=== PATIENT | female | born 1985 | race Caucasian/White ===

== ENCOUNTER 2016-07-22 20:02 | Emergency (ER) | payer OTHER, SELFPAY ==
[2016-07-22 20:16] VITALS: BP 115/64; PULSE 78; O2SAT 97
[2016-07-22] MEDS ORDERED: Rocephin 1000 MG INJ IM ONE (20:20)
--- NOTE | 2016-07-22 20:20 | ERPHSYRPT ---
- History of Present Illness Time Seen by Provider: 07/22/16 20:07 Source: patient Exam Limitations: no limitations Physician History: PT HAS HAD CHRONIC RIGHT SHOULDER PAIN FOR THE PAST 4 YEARS AND RECEIVED AN INJECTION IN THE MUSCLES OF HER RIGHT SHOULDER YESTERDAY BY A SPORTS MEDICINE DR AT [facility] AFTER WHICH SHE HAD SOME SHORTNESS OF AIR. TODAY PT HAS HAD A SUBJECTIVE FEVER. PT DENIES NAUSEA, VOMITING, ABDOMINAL PAIN. Allergies/Adverse Reactions: codeine Allergy (Intermediate, Verified 07/22/16 20:06) Rash erythromycin base Allergy (Intermediate, Verified 07/22/16 20:06) Rash shellfish derived Allergy (Intermediate, Verified 07/22/16 20:06) Rash acetaminophen [From Vicodin] Adverse Reaction (Mild, Verified 07/22/16 20:06) ITCH hydrocodone bitartrate [From Vicodin] Adverse Reaction (Mild, Verified 07/22/16 20:06) ITCH Home Medications: Alprazolam 1 mg [Xanax 1 mg] 2 mg PO HS 09/16/15 [History] Diltiazem HCl 30 mg [Cardizem 30 MG] 1 tab PO BID 05/25/16 [History] Fluoxetine HCl [Prozac] 1 cap PO DAILY 05/25/16 [History] Hx Tetanus, Diphtheria Vaccination/Date Given: No Hx Influenza Vaccination/Date Given: No Hx Pneumococcal Vaccination/Date Given: No - Review of Systems Constitutional: Fever Respiratory: Dyspnea Abdominal/Gastrointestinal: No Abdominal Pain, No Nausea, No Vomiting Musculoskeletal: Joint Pain (RIGHT SHOULDER PAIN) All Other Systems: Reviewed and Negative - Past Medical History Pertinent Past Medical History: No Neurological History: No Pertinent History ENT History: No Pertinent History Cardiac History: Other Respiratory History: No Pertinent History Endocrine Medical History: No Pertinent History Musculoskeletal History: No Pertinent History GI Medical History: GERD, Ulcer History: No Pertinent History Psycho-Social History: Anxiety Female Reproductive Disorders: Abnormal Uterine Bleeding Other Medical History: hypoglycemia - Past Surgical History Past Surgical History: Yes Neuro Surgical History: No Pertinent History Cardiac: No Pertinent History Respiratory: No Pertinent History Gastrointestinal: No Pertinent History, Cholecystectomy Genitourinary: No Pertinent History Musculoskeletal: Orthopedic Surgery Female Surgical History: Dilation & Curettage, Tubal Ligation Other Surgical History: left knee meniscus repair,left wrist cyst,Lap emily, colonoscopy and EGD - Social History Smoking Status: Current every day smoker How long have you smoked: 16 Exposure to second hand smoke: Yes Drug Use: none Patient Lives Alone: No - Physical Exam General Appearance: alert, anxiety Eye Exam: PERRL/EOMI, eyes nml inspection Ears, Nose, Throat Exam: TMs normal, moist mucous membranes, pharyngeal erythema Neck Exam: normal inspection Respiratory Exam: normal breath sounds, lungs clear Cardiovascular Exam: normal heart sounds Gastrointestinal/Abdomen Exam: soft, normal bowel sounds Back Exam: normal range of motion Extremity Exam: normal inspection, normal range of motion, No pedal edema Neurologic Exam: alert, cooperative Skin Exam: warm, dry - Course Nursing assessment & vital signs reviewed: Yes - Departure Time of Disposition: 20:20 Departure Disposition: Home Clinical Impression: PHARYNGITIS, CHRONIC RIGHT SHOULDER PAIN Condition: Fair Critical Care Time: No Instructions: Shoulder Pain Additional Instructions: FOLLOW UP WITH PRIVATE DOCTOR TOMORROW. Prescriptions: Naproxen [Naprosyn] 500 mg PO Q12H PRN PRN #20 tablet PRN Reason: Pain Cephalexin Monohydrate [Keflex] 500 mg PO TID #30 capsule
[2016-07-22] MEDS ORDERED: Rocephin 1000 MG INJ ONE (20:23)
[2016-07-22] MEDS ORDERED: XYLOCAINE 1% HCL 20 ML MDV ONE (20:23)
== END 2016-07-22 20:47 | disposition home or self-care (01) ==
LOC: ED 20:02
DX: J20.9 Acute bronchitis, unspecified (principal); M25.511 Pain in right shoulder; G89.29 Other chronic pain
CPT/HCPCS: 96372; 99282; J0696

== ENCOUNTER 2017-05-22 10:30 | Emergency (ER) | payer OTHER, SELFPAY ==
[2017-05-22 11:13] VITALS: O2SAT 98
--- NOTE | 2017-05-22 11:53 | ERPHSYRPT ---
- History of Present Illness Time Seen by Provider: 05/22/17 11:05 Source: patient Exam Limitations: clinical condition Patient Subjective Stated Complaint: chest congestion intermittently for three months. states has taken antibiotics and otc meds without relief. has had increase congestion for one week now. Triage Nursing Assessment: ambulated to room without difficulty. skin w/d, color normal, resp nonlabored. breath sounds clear. Physician History: PATIENT WITH HISTORY OF INTERMITTENT COUGH FOR 3 MONTHS, PRODUCTIVE, PAIN UPON INSPIRATION. DENIES FEVER, DYSPNEA OR CHILLS Timing/Duration: week(s) Cough Quality/Degree: moderate, productive cough Possible Cause: occasional episodes Modifying Factors: Improves With: nothing Associated Symptoms: chest pain/soreness, cough International travel in last 2 weeks: No Allergies/Adverse Reactions: codeine Allergy (Intermediate, Verified 05/22/17 11:02) Rash erythromycin base Allergy (Intermediate, Verified 05/22/17 11:02) Rash shellfish derived Allergy (Intermediate, Verified 05/22/17 11:02) Rash acetaminophen [From Vicodin] Adverse Reaction (Mild, Verified 05/22/17 11:02) ITCH hydrocodone bitartrate [From Vicodin] Adverse Reaction (Mild, Verified 05/22/17 11:02) ITCH Home Medications: Alprazolam 1 mg [Xanax 1 mg] 1 mg PO BID 09/16/15 [History] Diltiazem HCl 30 mg [Cardizem 30 MG] 1 tab PO BID 05/25/16 [History] Duloxetine HCl 30 mg [Cymbalta 30 MG Capsule] 30 mg PO DAILY 05/22/17 [ History] Lubiprostone [Amitiza] 24 mcg PO DAILY 05/22/17 [History] Hx Tetanus, Diphtheria Vaccination/Date Given: No Hx Influenza Vaccination/Date Given: No Hx Pneumococcal Vaccination/Date Given: No - Review of Systems Constitutional: No Fever, No Chills Eyes: No Symptoms Ears, Nose, & Throat: No Symptoms Respiratory: Cough, No Dyspnea Cardiac: No Symptoms, No Chest Pain, No Edema, No Syncope Abdominal/Gastrointestinal: No Symptoms, No Abdominal Pain, No Nausea, No Vomiting, No Diarrhea Genitourinary Symptoms: No Symptoms, No Dysuria Musculoskeletal: No Symptoms, No Back Pain, No Neck Pain Skin: No Rash Neurological: No Dizziness, No Focal Weakness, No Sensory Changes Psychological: No Symptoms Endocrine: No Symptoms All Other Systems: Reviewed and Negative - Past Medical History Pertinent Past Medical History: Yes Neurological History: No Pertinent History ENT History: No Pertinent History Cardiac History: Arrhythmia, Other Respiratory History: No Pertinent History Endocrine Medical History: No Pertinent History Musculoskeletal History: No Pertinent History GI Medical History: GERD, Ulcer History: No Pertinent History Psycho-Social History: Anxiety Female Reproductive Disorders: Abnormal Uterine Bleeding Other Medical History: hypoglycemia, esophagus spasm - Past Surgical History Past Surgical History: Yes Neuro Surgical History: No Pertinent History Cardiac: No Pertinent History Respiratory: No Pertinent History Gastrointestinal: Cholecystectomy Genitourinary: No Pertinent History Musculoskeletal: Orthopedic Surgery Female Surgical History: Dilation & Curettage, Tubal Ligation Other Surgical History: left knee meniscus repair,left wrist cyst,Lap emily, colonoscopy and EGD - Social History Smoking Status: Current every day smoker How long have you smoked: 18 Exposure to second hand smoke: Yes Drug Use: none Patient Lives Alone: No - Female History Hx Last Menstrual Period: 05/04/17 - Nursing Vital Signs Nursing Vital Signs: Initial Vital Signs Temperature 98.1 F 05/22/17 10:55 Pulse Rate 87 05/22/17 10:55 Respiratory Rate 16 05/22/17 10:55 Blood Pressure 121/73 05/22/17 10:55 O2 Sat by Pulse Oximetry 98 05/22/17 10:55 Pain Scale Pain Intensity 4 - Physical Exam General Appearance: no apparent distress, alert Eye Exam: PERRL/EOMI, eyes nml inspection Ears, Nose, Throat Exam: normal ENT inspection, TMs normal, pharynx normal, moist mucous membranes Neck Exam: normal inspection, non-tender, supple, full range of motion Respiratory Exam: normal breath sounds, lungs clear, No respiratory distress Cardiovascular Exam: regular rate/rhythm, normal heart sounds Gastrointestinal/Abdomen Exam: soft, No tenderness Back Exam: normal inspection, No CVA tenderness, No vertebral tenderness Extremity Exam: normal inspection, normal range of motion Neurologic Exam: alert, 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, cooperative, normal mood/affect, sensation nml, No motor deficits Skin Exam: normal color, warm, dry, No rash Lymphatic Exam: No adenopathy SpO2: 98 Oxygen Delivery: Room Air - Radiology Exams Chest X-ray Interpretation: Interpreted by me (HYPERINFLATION, NO INFILTRATES), Negative Ordered Tests: Active Orders 24 hr Category Date Time Status CHEST 2 VIEWS (PA AND LAT) Stat Exams 05/22/17 11:26 Taken CULTURE, THROAT Stat Lab 05/22/17 11:26 Received STREP SCREEN-BETA A Stat Lab 05/22/17 11:26 Completed Lab/Rad Data: Laboratory Results 05/22/17 Range/Units 11:26 Streptococcus Screen NEGATIVE (Negative) - Progress Counseled pt/family regarding: diagnosis, need for follow-up, rad results - Departure Time of Disposition: 12:30 Departure Disposition: Home Clinical Impression: ACUTE BRONCHITIS , ACUTE PHARYNGITIS Condition: Stable Critical Care Time: No Referrals: PAUL GIBBONS [Primary Care Provider] - Additional Instructions: MOTRIN EVERY 6 HOURS NEEDED FOR FEVER OR PAIN. ANTIBIOTIC CEFTIN 250MG TWICE DAILY FOR 10 DAYS. TAKE OVER THE COUNTER COUGH SYRUP FOR COUGHING. CONSULT YOUR PRIMARY CARE PHYSICIAN IN 1 WEEK FOR FOLLOWUP. Prescriptions: Cefuroxime Axetil [Cefuroxime] 250 mg PO BID #20 tablet
[2017-05-22 13:14] VITALS: BP 93/53; PULSE 58
--- NOTE | 2017-05-22 17:14 | XRAY ---
Indication: Cough. Comparison: March 05, 2016. PA/lateral chest again clear. Heart is not enlarged. Bony thorax intact. No new/acute findings.
== END 2017-05-22 13:15 | disposition home or self-care (01) ==
LOC: ED 10:30
DX: J20.9 Acute bronchitis, unspecified (principal); J02.9 Acute pharyngitis, unspecified
CPT/HCPCS: 71020; 87070; 87430; 99283; 99284

== ENCOUNTER 2017-08-21 12:04 | Emergency (ER) | payer OTHER ==
--- NOTE | 2017-08-21 13:03 | ERPHSYRPT ---
- History of Present Illness Time Seen by Provider: 08/21/17 12:58 Source: patient Exam Limitations: no limitations Patient Subjective Stated Complaint: Pt states "since tuesday I have not felt well, I have been coughing and my throat hurts." Triage Nursing Assessment: Pt alert and oriented X 3, skin pwd. pt ambulates without difficutly, able to speak in clear full sentences. Physician History: The patient is a 32-year-old female complaining of a stuffy nose and chest congestion with cough for 2 days. The patient states her fever has been 100. She feels run down. She had influenza earlier this year. Her past medical history is significant for anxiety, depression, and tonsilectomy. Timing/Duration: day(s) (2) Cough Quality/Degree: dry cough Possible Cause: occasional episodes Modifying Factors: Improves With: coughing Associated Symptoms: fever, nasal drainage, sore throat Allergies/Adverse Reactions: codeine Allergy (Intermediate, Verified 05/22/17 11:02) Rash erythromycin base Allergy (Intermediate, Verified 05/22/17 11:02) Rash shellfish derived Allergy (Intermediate, Verified 05/22/17 11:02) Rash acetaminophen [From Vicodin] Adverse Reaction (Mild, Verified 05/22/17 11:02) ITCH hydrocodone bitartrate [From Vicodin] Adverse Reaction (Mild, Verified 05/22/17 11:02) ITCH Home Medications: Alprazolam 1 mg [Xanax 1 mg] 1 mg PO BID 09/16/15 [History] Diltiazem HCl 30 mg [Cardizem 30 MG] 1 tab PO BID 05/25/16 [History] Duloxetine HCl 30 mg [Cymbalta 30 MG Capsule] 30 mg PO DAILY 05/22/17 [ History] Lubiprostone [Amitiza] 24 mcg PO DAILY 05/22/17 [History] Hx Tetanus, Diphtheria Vaccination/Date Given: No Hx Influenza Vaccination/Date Given: No Hx Pneumococcal Vaccination/Date Given: No Immunizations Up to Date: Yes - Review of Systems Constitutional: Fever, Fatigue Eyes: No Symptoms Ears, Nose, & Throat: Nose Discharge, Throat Pain Respiratory: Cough Cardiac: No Chest Pain, No Edema, No Syncope Abdominal/Gastrointestinal: No Abdominal Pain, No Nausea, No Vomiting, No Diarrhea Genitourinary Symptoms: No Dysuria Musculoskeletal: No Back Pain, No Neck Pain Skin: No Rash Neurological: No Dizziness, No Focal Weakness, No Sensory Changes Psychological: No Symptoms Endocrine: No Symptoms Hematologic/Lymphatic: No Symptoms Immunological/Allergic: No Symptoms All Other Systems: Reviewed and Negative - Past Medical History Pertinent Past Medical History: Yes Neurological History: No Pertinent History ENT History: No Pertinent History Cardiac History: Arrhythmia, Other Respiratory History: No Pertinent History Endocrine Medical History: No Pertinent History Musculoskeletal History: No Pertinent History GI Medical History: GERD, Ulcer History: No Pertinent History Psycho-Social History: Anxiety Female Reproductive Disorders: Abnormal Uterine Bleeding Other Medical History: hypoglycemia, esophagus spasm - Past Surgical History Past Surgical History: Yes Neuro Surgical History: No Pertinent History Cardiac: No Pertinent History Respiratory: No Pertinent History Gastrointestinal: Cholecystectomy Genitourinary: No Pertinent History Musculoskeletal: Orthopedic Surgery Female Surgical History: Dilation & Curettage, Tubal Ligation Other Surgical History: left knee meniscus repair,left wrist cyst,Lap emily, colonoscopy and EGD - Social History Smoking Status: Current every day smoker How long have you smoked: 18 years Exposure to second hand smoke: Yes Drug Use: none Patient Lives Alone: No - Female History Hx Last Menstrual Period: 08/13/2017 Hx Now: No - Nursing Vital Signs Nursing Vital Signs: Initial Vital Signs Temperature 97.8 F 08/21/17 12:11 Pulse Rate 96 H 08/21/17 12:11 Respiratory Rate 18 08/21/17 12:11 Blood Pressure 131/90 08/21/17 12:11 O2 Sat by Pulse Oximetry 99 08/21/17 12:11 Pain Scale Pain Intensity 5 - Physical Exam General Appearance: no apparent distress, alert Eye Exam: PERRL/EOMI, eyes nml inspection Ears, Nose, Throat Exam: normal ENT inspection, TMs normal, pharynx normal, moist mucous membranes, No pharyngeal erythema Neck Exam: normal inspection, non-tender, supple, full range of motion Respiratory Exam: normal breath sounds, lungs clear, No respiratory distress Cardiovascular Exam: regular rate/rhythm, normal heart sounds Gastrointestinal/Abdomen Exam: soft, No tenderness Pelvic Exam: not done Rectal Exam: not done Back Exam: normal inspection, No CVA tenderness, No vertebral tenderness Extremity Exam: normal inspection, normal range of motion Neurologic Exam: alert, 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, cooperative, normal mood/affect, sensation nml, No motor deficits Skin Exam: normal color, warm, dry, No rash Lymphatic Exam: No adenopathy SpO2 Interpretation: normal SpO2: 99 Oxygen Delivery: Room Air - Departure Time of Disposition: 13:02 Departure Disposition: Home Clinical Impression: Viral URI with cough Condition: Stable Critical Care Time: No Referrals: PAUL GIBBONS [Primary Care Provider] - Additional Instructions: You have a viral infection in your upper respiratory tract. Take Tessalon Perles 100 mg every 8 hours as needed for cough. Take Tylenol and ibuprofen as needed. Follow-up in 2-3 days if no improvement. Prescriptions: Benzonatate [Tessalon Perle] 100 mg PO Q8H PRN PRN #12 capsule PRN Reason: Cough
[2017-08-21 13:13] VITALS: BP 115/73; PULSE 70; O2SAT 98
== END 2017-08-21 13:13 | disposition home or self-care (01) ==
LOC: ED 12:04
DX: J06.9 Acute upper respiratory infection, unspecified (principal); R05 Cough
CPT/HCPCS: 99282

== ENCOUNTER 2017-08-28 10:33 | Emergency (ER) | payer OTHER ==
--- NOTE | 2017-08-28 10:51 | ERPHSYRPT ---
- History of Present Illness Time Seen by Provider: 08/28/17 10:50 Source: patient, family Exam Limitations: no limitations Physician History: The patient is a 32-year-old female complaining of a cough for 9-10 days. I saw her 7 days ago for the same issue of cough for 2 days. At that time I gave her Diego Wong. She is still coughing and is now nauseated. She smokes and has some wheezing. She is not short of breath. Her past medical history is significant for depression, anxiety, and hypertension. Timing/Duration: day(s) (9), gradual onset, worse Cough Quality/Degree: dry cough Possible Cause: occasional episodes, smoke exposure Modifying Factors: Improves With: coughing Associated Symptoms: cough Allergies/Adverse Reactions: codeine Allergy (Intermediate, Verified 08/28/17 10:46) Rash erythromycin base Allergy (Intermediate, Verified 08/28/17 10:46) Rash shellfish derived Allergy (Intermediate, Verified 08/28/17 10:46) Rash acetaminophen [From Vicodin] Adverse Reaction (Mild, Verified 08/28/17 10:46) ITCH hydrocodone bitartrate [From Vicodin] Adverse Reaction (Mild, Verified 08/28/17 10:46) ITCH Home Medications: Alprazolam 1 mg [Xanax 1 mg] 1 mg PO BID 09/16/15 [History] Diltiazem HCl 30 mg [Cardizem 30 MG] 1 tab PO BID 05/25/16 [History] Duloxetine HCl 30 mg [Cymbalta 30 MG Capsule] 30 mg PO DAILY 05/22/17 [ History] Lubiprostone [Amitiza] 24 mcg PO DAILY 05/22/17 [History] Hx Tetanus, Diphtheria Vaccination/Date Given: No Hx Influenza Vaccination/Date Given: No Hx Pneumococcal Vaccination/Date Given: No - Review of Systems Constitutional: No Fever, No Chills Eyes: No Symptoms Ears, Nose, & Throat: No Symptoms Respiratory: Cough, Wheezing Cardiac: No Chest Pain, No Edema, No Syncope Abdominal/Gastrointestinal: Nausea Genitourinary Symptoms: No Dysuria Musculoskeletal: No Back Pain, No Neck Pain Skin: No Rash Neurological: No Dizziness, No Focal Weakness, No Sensory Changes Psychological: No Symptoms Endocrine: No Symptoms Hematologic/Lymphatic: No Symptoms Immunological/Allergic: No Symptoms All Other Systems: Reviewed and Negative - Past Medical History Pertinent Past Medical History: Yes Neurological History: No Pertinent History ENT History: No Pertinent History Cardiac History: Arrhythmia, Other Respiratory History: No Pertinent History Endocrine Medical History: No Pertinent History Musculoskeletal History: No Pertinent History GI Medical History: GERD, Ulcer History: No Pertinent History Psycho-Social History: Anxiety Female Reproductive Disorders: Abnormal Uterine Bleeding Other Medical History: hypoglycemia, esophagus spasm - Past Surgical History Past Surgical History: Yes Neuro Surgical History: No Pertinent History Cardiac: No Pertinent History Respiratory: No Pertinent History Gastrointestinal: Cholecystectomy Genitourinary: No Pertinent History Musculoskeletal: Orthopedic Surgery Female Surgical History: Dilation & Curettage, Tubal Ligation Other Surgical History: left knee meniscus repair,left wrist cyst,Lap emily, colonoscopy and EGD - Social History Smoking Status: Current every day smoker How long have you smoked: 18 years Exposure to second hand smoke: Yes Drug Use: none Patient Lives Alone: No - Nursing Vital Signs Nursing Vital Signs: Initial Vital Signs Temperature 98.1 F 08/28/17 10:39 Pulse Rate 96 H 08/28/17 10:39 Respiratory Rate 18 08/28/17 10:39 Blood Pressure 118/62 08/28/17 10:39 O2 Sat by Pulse Oximetry 100 08/28/17 10:39 Pain Scale Pain Intensity 5 - Physical Exam General Appearance: no apparent distress, alert Eye Exam: PERRL/EOMI, eyes nml inspection Ears, Nose, Throat Exam: normal ENT inspection, TMs normal, pharynx normal, moist mucous membranes Neck Exam: normal inspection, non-tender, supple, full range of motion Respiratory Exam: wheezing Cardiovascular Exam: regular rate/rhythm, normal heart sounds Gastrointestinal/Abdomen Exam: soft, No tenderness Pelvic Exam: not done Rectal Exam: not done Back Exam: normal inspection, No CVA tenderness, No vertebral tenderness Extremity Exam: normal inspection, normal range of motion Neurologic Exam: alert, 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, cooperative, normal mood/affect, sensation nml, No motor deficits Skin Exam: normal color, warm, dry, No rash Lymphatic Exam: adenopathy SpO2 Interpretation: normal - Progress Progress Note: 08/28/17 11:05 Pt declines CXR and agrees to antibiotic and steroids. Blood Culture(s) Obtained: No Antibiotics given: No Counseled pt/family regarding: diagnosis, need for follow-up - Departure Time of Disposition: 11:05 Departure Disposition: Home Clinical Impression: Bronchitis Condition: Stable Critical Care Time: No Referrals: PAUL GIBBONS [Primary Care Provider] - Additional Instructions: You have bronchitis. Take doxycycline 100 mg 2 times a day for 10 days. Take prednisone 60 mg daily for 5 days. Take Zofran 4 mg ODT every 6 hours as needed for nausea. Continue to take the Tessalon Perles as directed previously. Follow-up in 2-3 days if no improvement. Prescriptions: Ondansetron ODT 4 MG [Zofran Odt 4 mg] 1 tab PO Q6H PRN PRN #10 tab.rapdis PRN Reason: Nausea/Vomiting Doxycycline Hyclate 100 mg [Vibramycin 100 MG] 1 tab PO BID #20 tab Prednisone 20 mg [Deltasone 20 mg] 3 tab PO DAILY #15 tablet
[2017-08-28 11:21] VITALS: BP 112/65; PULSE 88; O2SAT 99
== END 2017-08-28 11:20 | disposition home or self-care (01) ==
LOC: ED 10:33
DX: J40 Bronchitis, not specified as acute or chronic (principal); F17.200 Nicotine dependence, unspecified, uncomplicated
CPT/HCPCS: 99281

== ENCOUNTER 2017-09-17 14:10 | Emergency (ER) | payer OTHER ==
[2017-09-17 14:26] VITALS: BP 124/76; PULSE 73; O2SAT 98
[2017-09-17] MEDS ORDERED: MOTRIN 600 MG PO ONE (14:33)
[2017-09-17] MEDS ORDERED: MOTRIN 600 MG ONE (14:39)
--- NOTE | 2017-09-17 14:59 | ERPHSYRPT ---
- History of Present Illness Time Seen by Provider: 09/17/17 14:28 Source: patient Patient Subjective Stated Complaint: left knee pain that is chronic. and then 3 days ago she rolled the leg and now has radiating pain down leg with tingling Triage Nursing Assessment: pt walked in, resp easy, skin w/d/p. no redenss or swelling noted, Physician History: CC: left knee pain Hx: 32 y/o patient of Dr Robert Marcos. She has hx of knee pains and problems. Prior surgery. Saw Dr Marcos earlier this week and is scheduled for MRI. She twisted her left knee again 3 days ago. Continued pain. No redness or warmth or swelling. States not . Occurred: days ago (3) Lower Extremities Pain: knee: left Allergies/Adverse Reactions: codeine Allergy (Intermediate, Verified 08/28/17 10:46) Rash erythromycin base Allergy (Intermediate, Verified 08/28/17 10:46) Rash shellfish derived Allergy (Intermediate, Verified 08/28/17 10:46) Rash acetaminophen [From Vicodin] Adverse Reaction (Mild, Verified 08/28/17 10:46) ITCH hydrocodone bitartrate [From Vicodin] Adverse Reaction (Mild, Verified 08/28/17 10:46) ITCH Home Medications: Alprazolam 1 mg [Xanax 1 mg] 1 mg PO BID 09/16/15 [History] Diltiazem HCl 30 mg [Cardizem 30 MG] 1 tab PO TID 05/25/16 [History] Duloxetine HCl 30 mg [Cymbalta 30 MG Capsule] 30 mg PO DAILY 05/22/17 [ History] Lubiprostone [Amitiza] 24 mcg PO DAILY 05/22/17 [History] Gabapentin [Gabapentin] 200 mg DAILY 09/17/17 [History] Hx Tetanus, Diphtheria Vaccination/Date Given: Yes Hx Influenza Vaccination/Date Given: No Hx Pneumococcal Vaccination/Date Given: No Immunizations Up to Date: Yes - Review of Systems Constitutional: No Symptoms Musculoskeletal: Joint Pain (left), No Back Pain, No Neck Pain Skin: No Rash Neurological: No Headache - Past Medical History Pertinent Past Medical History: Yes Neurological History: No Pertinent History ENT History: No Pertinent History Cardiac History: Arrhythmia, Other Respiratory History: No Pertinent History Endocrine Medical History: No Pertinent History Musculoskeletal History: No Pertinent History GI Medical History: GERD, Ulcer History: No Pertinent History Psycho-Social History: Anxiety Female Reproductive Disorders: Abnormal Uterine Bleeding Other Medical History: hypoglycemia, esophagus spasm - Past Surgical History Past Surgical History: Yes Neuro Surgical History: No Pertinent History Cardiac: No Pertinent History Respiratory: No Pertinent History Gastrointestinal: Cholecystectomy Genitourinary: No Pertinent History Musculoskeletal: Orthopedic Surgery Female Surgical History: Dilation & Curettage, Tubal Ligation Other Surgical History: left knee meniscus repair,left wrist cyst,Lap emily, colonoscopy and EGD - Social History Smoking Status: Current every day smoker How long have you smoked: 18 years Exposure to second hand smoke: Yes Drug Use: none Patient Lives Alone: No - Female History Hx Last Menstrual Period: 2 weeks ago Hx Now: No - Nursing Vital Signs Nursing Vital Signs: Initial Vital Signs Temperature 98.8 F 09/17/17 14:21 Pulse Rate 73 09/17/17 14:21 Respiratory Rate 16 09/17/17 14:21 Blood Pressure 124/76 09/17/17 14:21 O2 Sat by Pulse Oximetry 98 09/17/17 14:21 Pain Scale Pain Intensity 7 - Physical Exam General Appearance: alert Neck Exam: supple Cardiovascular/Respiratory Exam: regular rate/rhythm Neuro/Tendon Exam: normal sensation, normal motor functions Mental Status Exam: alert, 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, cooperative Skin Exam: warm, dry SpO2: 98 Oxygen Delivery: Room Air Comments: tender left knee, no redness, warmth, or swelling. ROm intact. No ankle or hip tenderness. - Course Nursing assessment & vital signs reviewed: Yes - Radiology Exams left knee X-ray Interpretation: Interpreted by me, Negative, No Fracture, No Subluxation Ordered Tests: Active Orders 24 hr Category Date Time Status Lito Bandage Application -[facility] STAT Care 09/17/17 14:33 Active Cold Application STAT Care 09/17/17 14:33 Active KNEE (3 VIEWS) Stat Exams 09/17/17 14:33 Taken Medication Summary Discontinued Medications Generic Name Dose Route Start Last Admin Trade Name Freq PRN Reason Stop Dose Admin Ibuprofen 600 mg 09/17/17 14:33 09/17/17 14:41 Motrin 600 Mg PO 09/17/17 14:34 600 mg STAT ONE Administration Ibuprofen Confirm 09/17/17 14:39 Motrin 600 Mg Administered 09/17/17 14:40 Dose 600 mg .ROUTE .STK-MED ONE - Progress Progress Note: 09/17/17 15:53 Lito and motrin and follow up Dr Marcos. Counseled pt/family regarding: diagnosis, need for follow-up, rad results - Departure Time of Disposition: 15:53 Departure Disposition: Home Clinical Impression: Sprain of left knee Qualifiers: Encounter type: initial encounter Involved ligament of knee: unspecified ligament Qualified Code(s): S83.92XA - Sprain of unspecified site of left knee, initial encounter Condition: Stable Critical Care Time: No Referrals: PAUL GIBBONS [Primary Care Provider] - Instructions: Knee Sprain (DC) Additional Instructions: SPRAINS/STRAINS/CONTUSIONS 1. Rest the affected area as much as possible for the next few days. 2. Apply ice to the affected area for 20-30 minutes at a time, several times a day. 3. If you receive an elastic wrap, wear it only while awake for comfort and support. Re-wrap the elastic wrap if it feels too tight or too loose. 4. If swelling is present, elevate the affected part above the level of the heart for at least 2 to 3 days. 5. Use splints, slings, or crutches as instructed. 6. Watch for severe swelling, coldness, numbness, and discoloration of the fingers and toes. See your family physician or return to the emergency department if any of these are noted. Lito wrap. Ibuprofen as directed. Follow up with Dr Robert Marcos. Prescriptions: Ibuprofen 1 tab PO Q6H PRN PRN #24 tablet PRN Reason: pain
--- NOTE | 2017-09-17 21:02 | XRAY ---
Indication: Pain. Comparison: None 3 views of the left knee demonstrates small tibial shaft healed fibrous cortical defect. No other bony, articular, or soft tissue abnormalities.
== END 2017-09-17 16:03 | disposition home or self-care (01) ==
LOC: ED 14:10
DX: S83.92XA Sprain of unspecified site of left knee, initial encounter (principal); M25.562 Pain in left knee
CPT/HCPCS: 73562; 99283; A9270-GY

== ENCOUNTER 2018-03-28 20:29 | Emergency (ER) | payer OTHER ==
[2018-03-28 20:49] VITALS: PULSE 68; O2SAT 98
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
[2018-03-29 00:04] VITALS: BP 111/61
== END 2018-03-29 00:03 | disposition home or self-care (01) ==
LOC: ED 20:29
DX: K59.03 Drug induced constipation (principal); T40.2X5A Adverse effect of other opioids, initial encounter; Z79.899 Other long term (current) drug therapy
CPT/HCPCS: 36415; 80053; 82272; 85025; 99283

== ENCOUNTER 2018-10-31 15:51 | Emergency (ER) | payer OTHER ==
[2018-10-31] MEDS ORDERED: ANTIVERT 25 MG PO ONE (16:20)
[2018-10-31] MEDS ORDERED: Sodium Chloride 0.9% 1000 ML 1,000 ML IV STA (16:20)
[2018-10-31] MEDS ORDERED: ANTIVERT 25 MG ONE (16:32)
[2018-10-31] MEDS ORDERED: Sodium Chloride 0.9% 1000 ML 1,000 ML ONE (16:32)
[2018-10-31 16:48] LABS: BASOPHIL % 0.2 % (0.0-0.4); Basophil (Absolute #) 0.02 (0-0.4); Eosinophil % 3.2 % (0.00-5.0); Eosinophil (Absolute #) 0.28 (0-0.5); Granulocyte Absolute (ANC) 6.23 (1.4-6.9); Granulocytes % 70.4 % (36.0-66.0); Hematocrit 42.5 % (35-47); Lymphocyte (Absolute #) 1.81 (1.0-4.6); Lymphocytes % 20.5 % (24.0-44.0); Mean Cell Volume 99.5 fl (78-100); Mean Corpuscular Hemoglobin 32.8 pg (26-32); Mean Corpuscular Hgb Concent. 32.9 g/dl (32-36); Mean Platelet Volume 10.6 fl (6-9.5); Monocytes % 5.7 % (0.0-12.0); Platelet Count 265 K/mm3 (150-450); Red Blood Count 4.27 M/mm3 (4.1-5.4); Red Cell Distribution Width 13.6 % (11.5-14.0); White Blood Count 8.8 K/mm3 (4.0-10.5)
[2018-10-31 16:52] LABS: ALBUMIN 4.3 g/dL (3.5-5.0); ALKALINE PHOSPHATASE 60 U/L (38-126); ANION GAP 14.5 MEQ/L (5-15); BLOOD UREA NITROGEN 11 mg/dL (7-17); CHLORIDE 106 mmol/L (98-107); Calcium 9.5 mg/dL (8.4-10.2); Carbon Dioxide 24 mmol/L (22-30); Glucose 105 mg/dL (74-106); SGOT/AST 25 U/L (14-36); SGPT/ALT 18 U/L (0-35); SODIUM 141 mmol/L (137-145); Total Protein 7.3 g/dL (6.3-8.2)
--- NOTE | 2018-10-31 16:54 | XRAY ---
Indication: Dizziness. Near-syncope. Multiple contiguous axial images obtained through the head without contrast. Comparison: None Ventriculosulcal pattern appears symmetric. No acute intracranial hemorrhage, abnormal extraction fluid collection, or mass effect. Fourth ventricle is midline without hydrocephalus. Anatomic variant for cavum septum pellucid. Norton white matter differentiation preserved. Bony calvarium intact. Visualized paranasal sinuses and mastoid air cells are clear. Impression: Negative CT head without contrast exam. CTDI 70.21
[2018-10-31 16:55] LABS: Appearance CLOUDY (CLEAR); Bacteria FEW /HPF (NEGATIVE); Bilirubin NEGATIVE (NEGATIVE); Blood LARGE Ery/ul (0-5); Epithelial Cells RARE /HPF (FEW); Glucose NEGATIVE (NEGATIVE); Ketones NEGATIVE (NEGATIVE); Leukocyte Esterase TRACE (NEGATIVE); Mucus SLIGHT /HPF (NEGATIVE); Nitrite NEGATIVE (NEGATIVE); Protein,Urine Dip 100 (Negative); Specific Gravity 1.017 (1.005-1.025); Urobilinogen 2 mg/dL (0-1)
[2018-10-31 17:06] LABS: RBC >101 /HPF (0-2)
[2018-10-31 17:08] LABS: Amphetamine,Urine NEGATIVE (NEGATIVE); Barbiturate,Urine NEGATIVE (NEGATIVE); Benzodiazepine,Urine POSITIVE (NEGATIVE); Cocaine,Urine NEGATIVE (NEGATIVE); Methadone,Urine NEGATIVE (NEGATIVE); Opiate,Urine NEGATIVE (NEGATIVE); PCP,Urine NEGATIVE (NEGATIVE); THC,Urine NEGATIVE (NEGATIVE)
[2018-10-31] MEDS ORDERED: ROCEPHIN 1 Gm-D5w 50 ml Bag** 1 G/50 ML IVPB IV STA (17:53)
[2018-10-31 18:53] VITALS: BP 113/76; PULSE 57
--- NOTE | 2018-10-31 18:54 | ERPHSYRPT ---
- History of Present Illness Source: patient Exam Limitations: no limitations Patient Subjective Stated Complaint: states has had increased dizziness for three days. hx of vertigo. denies pain at this time. Triage Nursing Assessment: patient assisted to cart from w/c. skin w/d, color normal, resp easy. aracely. a/o times three. patient became dizzy when standing. Physician History: Pt is a 33 y/o female that presented to the ER with complains of dizziness. Pt has a h/o Vertigo, and she ran out of her Meclizine, and did not have any time to order picker her meds from the pharmacy, and she developed severe dizziness today. Pt presented to the ER to make sure there is no other condition, that causing her symptoms. Pt states that she had also muscle contractions on the R side of her face, and headache. No double vision or blurry vision. Some nausea. Severity: mild Modifying Factors: Improves With: medication, movement Associated Symptoms: nausea, headaches, other (muscle contractions of R side of face.) Allergies/Adverse Reactions: codeine Allergy (Intermediate, Verified 10/31/18 16:10) Rash erythromycin base Allergy (Intermediate, Verified 10/31/18 16:10) Rash shellfish derived Allergy (Intermediate, Verified 10/31/18 16:10) Rash hydrocodone bitartrate [From Vicodin] Adverse Reaction (Mild, Verified 10/31/18 16:10) ITCH Home Medications: Alprazolam 1 mg [Xanax 1 mg] 1 mg PO BID 09/16/15 [History] Diltiazem HCl 30 mg [Cardizem 30 MG] 90 mg PO TID 05/25/16 [History] Hx Tetanus, Diphtheria Vaccination/Date Given: No Hx Influenza Vaccination/Date Given: Yes Hx Pneumococcal Vaccination/Date Given: No - Review of Systems Constitutional: No Fever, No Chills Eyes: No Symptoms Ears, Nose, & Throat: No Symptoms Respiratory: No Cough, No Dyspnea Cardiac: No Chest Pain, No Edema, No Syncope Abdominal/Gastrointestinal: No Abdominal Pain, No Nausea, No Vomiting, No Diarrhea Genitourinary Symptoms: No Dysuria Musculoskeletal: No Back Pain, No Neck Pain Neurological: Dizziness, Vertigo, Other (muscle contraction of the R side of face) - Past Medical History Pertinent Past Medical History: Yes Neurological History: No Pertinent History, Peripheral Neuropathy ENT History: No Pertinent History Cardiac History: Arrhythmia, No Pertinent History, Other Respiratory History: No Pertinent History Endocrine Medical History: No Pertinent History Musculoskeletal History: No Pertinent History GI Medical History: Ulcer, GERD History: No Pertinent History Psycho-Social History: Anxiety Female Reproductive Disorders: Abnormal Uterine Bleeding Other Medical History: hypoglycemia, esophagus spasm - Past Surgical History Past Surgical History: Yes Neuro Surgical History: No Pertinent History Cardiac: No Pertinent History Respiratory: No Pertinent History Gastrointestinal: Cholecystectomy Genitourinary: No Pertinent History Musculoskeletal: Orthopedic Surgery Female Surgical History: Tubal Ligation, Dilation & Curettage Other Surgical History: left knee meniscus repair,left wrist cyst,Lap emily, colonoscopy and EGD - Social History Smoking Status: Current every day smoker How long have you smoked: 19 Exposure to second hand smoke: No Drug Use: none Patient Lives Alone: No - Female History Hx Last Menstrual Period: now Hx Now: No - Nursing Vital Signs Nursing Vital Signs: Initial Vital Signs Temperature 98.4 F 10/31/18 15:56 Pulse Rate 74 10/31/18 15:56 Respiratory Rate 16 10/31/18 15:56 Blood Pressure 134/82 10/31/18 15:56 O2 Sat by Pulse Oximetry 98 10/31/18 15:56 Pain Scale Pain Intensity 0 - Physical Exam General Appearance: no apparent distress, alert Eye Exam: PERRL/EOMI, eyes nml inspection Ears, Nose, Throat Exam: normal ENT inspection, TMs normal, pharynx normal, moist mucous membranes Neck Exam: normal inspection, non-tender, supple, full range of motion Respiratory Exam: normal breath sounds, lungs clear, No respiratory distress Cardiovascular Exam: regular rate/rhythm, normal heart sounds, normal peripheral pulses Gastrointestinal/Abdomen Exam: soft, normal bowel sounds, No tenderness, No mass Extremity Exam: normal inspection, normal range of motion, pelvis stable Neurologic Exam: alert, 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, cooperative, executive asst II-XII nml as tested, nml cerebellar function, sensation nml SpO2: 97 - Course Nursing assessment & vital signs reviewed: Yes - CT Exams Head CT Interpretation: Negative Ordered Tests: Active Orders 24 hr Category Date Time Status ACCUCHECK [Accucheck] STAT Care 10/31/18 16:17 Active IV Insertion STAT Care 10/31/18 16:17 Active Orthostatic Vital Signs STAT Care 10/31/18 16:17 Active HEAD WITHOUT CONTRAST [CT] Stat Exams 10/31/18 16:21 Completed CBC W DIFF Stat Lab 10/31/18 16:05 Completed CMP Stat Lab 10/31/18 16:05 Completed CULTURE,URINE Stat Lab 10/31/18 16:45 Received HCG,QUALITATIVE URINE Stat Lab 10/31/18 16:45 Completed UA W/RFX UR CULTURE Stat Lab 10/31/18 16:45 Completed Urine Triage Profile Stat Lab 10/31/18 16:45 Completed Medication Summary Discontinued Medications Generic Name Dose Route Start Last Admin Trade Name Freq PRN Reason Stop Dose Admin Sodium Chloride 1,000 mls @ 999 mls/hr 10/31/18 16:20 10/31/18 17:36 Sodium Chloride 0.9% 1000 Ml IV 10/31/18 17:20 Infused .Q1H1M STA Infusion Sodium Chloride Confirm 10/31/18 16:32 Sodium Chloride 0.9% 1000 Ml Administered 10/31/18 16:33 Dose 1,000 mls @ ud .ROUTE .STK-MED ONE Ceftriaxone Sodium/Dextrose 1 g in 50 mls @ 100 mls/hr 10/31/18 17:53 18:19 Rocephin 1 Gm-D5w 50 Ml Bag IV 10/31/18 18:22 Infused STAT STA Infusion Meclizine HCl 50 mg 10/31/18 16:20 10/31/18 16:35 Antivert 25 Mg PO 10/31/18 16:21 50 mg STAT ONE Administration Meclizine HCl Confirm 10/31/18 16:32 Antivert 25 Mg Administered 10/31/18 16:33 Dose 50 mg .ROUTE .STK-MED ONE Lab/Rad Data: Laboratory Result Diagrams 10/31/18 16:05 10/31/18 16:05 Laboratory Results 10/31/18 10/31/18 10/31/18 Range/Units 16:45 16:45 16:45 WBC (4.0-10.5) K/mm3 RBC (4.1-5.4) M/mm3 Hgb (12.0-16.0) gm/dl Hct (35-47) % MCV (78-100) fl MCH (26-32) pg MCHC (32-36) g/dl RDW (11.5-14.0) % Plt Count (150-450) K/mm3 MPV (6-9.5) fl Gran % (36.0-66.0) % Eos # (Auto) (0-0.5) Absolute Lymphs (auto) (1.0-4.6) Absolute Monos (auto) (0.0-1.3) Lymphocytes % (24.0-44.0) % Monocytes % (0.0-12.0) % Eosinophils % (0.00-5.0) % Basophils % (0.0-0.4) % Absolute Granulocytes (1.4-6.9) Basophils # (0-0.4) Sodium (137-145) mmol/L Potassium (3.5-5.1) mmol/L Chloride (98-107) mmol/L Carbon Dioxide (22-30) mmol/L Anion Gap (5-15) MEQ/L BUN (7-17) mg/dL Creatinine (0.52-1.04) mg/dL Estimated GFR ML/MIN Glucose (74-106) mg/dL Calcium (8.4-10.2) mg/dL Total Bilirubin (0.2-1.3) mg/dL AST (14-36) U/L ALT (0-35) U/L Alkaline Phosphatase (38-126) U/L Serum Total Protein (6.3-8.2) g/dL Albumin (3.5-5.0) g/dL Urine Color RED (YELLOW) Urine Appearance CLOUDY (CLEAR) Urine pH 8.0 (5-6) Ur Specific Meade 1.017 (1.005-1.025) Urine Protein 100 (Negative) Urine Ketones NEGATIVE (NEGATIVE) Urine Blood LARGE (0-5) Clement/ul Urine Nitrite NEGATIVE (NEGATIVE) Urine Bilirubin NEGATIVE (NEGATIVE) Urine Urobilinogen 2 (0-1) mg/dL Ur Leukocyte Esterase TRACE (NEGATIVE) Urine WBC (Auto) 16-25 (0-5) /HPF Urine RBC (Auto) >101 (0-2) /HPF U Epithel Cells (Auto) RARE (FEW) /HPF Urine Bacteria (Auto) FEW (NEGATIVE) /HPF Urine Mucus (Auto) SLIGHT (NEGATIVE) /HPF Urine Culture Reflexed YES (NO) Urine Glucose NEGATIVE (NEGATIVE) mg/dL Urine HCG, Qual NEGATIVE (Negative) Urine Opiates Level NEGATIVE (NEGATIVE) Ur Methadone NEGATIVE (NEGATIVE) Urine Barbiturates NEGATIVE (NEGATIVE) Ur Phencyclidine (PCP) NEGATIVE (NEGATIVE) Urine Amphetamine NEGATIVE (NEGATIVE) U Benzodiazepine Level POSITIVE (NEGATIVE) Urine Cocaine NEGATIVE (NEGATIVE) Urine Marijuana (THC) NEGATIVE (NEGATIVE) 10/31/18 10/31/18 Range/Units 16:05 16:05 WBC 8.8 (4.0-10.5) K/mm3 RBC 4.27 (4.1-5.4) M/mm3 Hgb 14.0 (12.0-16.0) gm/dl Hct 42.5 (35-47) % MCV 99.5 (78-100) fl MCH 32.8 H (26-32) pg MCHC 32.9 (32-36) g/dl RDW 13.6 (11.5-14.0) % Plt Count 265 (150-450) K/mm3 MPV 10.6 H (6-9.5) fl Gran % 70.4 H (36.0-66.0) % Eos # (Auto) 0.28 (0-0.5) Absolute Lymphs (auto) 1.81 (1.0-4.6) Absolute Monos (auto) 0.50 (0.0-1.3) Lymphocytes % 20.5 L (24.0-44.0) % Monocytes % 5.7 (0.0-12.0) % Eosinophils % 3.2 (0.00-5.0) % Basophils % 0.2 (0.0-0.4) % Absolute Granulocytes 6.23 (1.4-6.9) Basophils # 0.02 (0-0.4) Sodium 141 (137-145) mmol/L Potassium 4.0 (3.5-5.1) mmol/L Chloride 106 (98-107) mmol/L Carbon Dioxide 24 (22-30) mmol/L Anion Gap 14.5 (5-15) MEQ/L BUN 11 (7-17) mg/dL Creatinine 0.60 (0.52-1.04) mg/dL Estimated GFR > 60.0 ML/MIN Glucose 105 (74-106) mg/dL Calcium 9.5 (8.4-10.2) mg/dL Total Bilirubin 0.50 (0.2-1.3) mg/dL AST 25 (14-36) U/L ALT 18 (0-35) U/L Alkaline Phosphatase 60 (38-126) U/L Serum Total Protein 7.3 (6.3-8.2) g/dL Albumin 4.3 (3.5-5.0) g/dL Urine Color (YELLOW) Urine Appearance (CLEAR) Urine pH (5-6) Ur Specific Meade (1.005-1.025) Urine Protein (Negative) Urine Ketones (NEGATIVE) Urine Blood (0-5) Clement/ul Urine Nitrite (NEGATIVE) Urine Bilirubin (NEGATIVE) Urine Urobilinogen (0-1) mg/dL Ur Leukocyte Esterase (NEGATIVE) Urine WBC (Auto) (0-5) /HPF Urine RBC (Auto) (0-2) /HPF U Epithel Cells (Auto) (FEW) /HPF Urine Bacteria (Auto) (NEGATIVE) /HPF Urine Mucus (Auto) (NEGATIVE) /HPF Urine Culture Reflexed (NO) Urine Glucose (NEGATIVE) mg/dL Urine HCG, Qual (Negative) Urine Opiates Level (NEGATIVE) Ur Methadone (NEGATIVE) Urine Barbiturates (NEGATIVE) Ur Phencyclidine (PCP) (NEGATIVE) Urine Amphetamine (NEGATIVE) U Benzodiazepine Level (NEGATIVE) Urine Cocaine (NEGATIVE) Urine Marijuana (THC) (NEGATIVE) - Progress Progress: improved Progress Note: 10/31/18 18:55 Pt's lab work was normal as well as head CT. UA was slightly abnormal, and I gave her a dose of Rocephin. I gave the pt a liter of IVF, and Meclizine 50mg PO. Pt is feeling much better and is cleared for d/c. She does have a prescription for Meclizine in the pharmacy to order picker. Prescription for Omnicef will be sent to the pharmacy. Pt should f/u with her PCP. Discussed with : Jaye Will see patient in: office Counseled pt/family regarding: need for follow-up - Departure Departure Disposition: Home Clinical Impression: Vertigo, UTI (urinary tract infection) Condition: Stable Critical Care Time: No Referrals: ARSALAN LONG [Primary Care Provider] - Additional Instructions: Take meds as prescribed. F/U with PCP in the office. Prescriptions: Cefdinir [Omnicef] 300 mg PO BID #10 capsule
[2018-10-31 18:55] VITALS: O2SAT 97
[2018-10-31] MEDS ORDERED: ROCEPHIN 1 Gm-D5w 50 ml Bag** 1 G/50 ML IVPB IV ONE (19:57)
== END 2018-10-31 19:10 | disposition home or self-care (01) ==
LOC: ED 15:51
DX: R42 Dizziness and giddiness (principal); N39.0 Urinary tract infection, site not specified
CPT/HCPCS: 36000; 36415; 70450; 80053; 80307; 81001; 82962; 84703; 85025; 87086; 96360; 96365; 99284; J0696; A9270-GY

== ENCOUNTER 2018-12-12 18:22 | Emergency (ER) | payer OTHER ==
[2018-12-12 19:00] LABS: Appearance SLIGHTLY CLOUDY (CLEAR); Bacteria RARE /HPF (NEGATIVE); Bilirubin NEGATIVE (NEGATIVE); Blood SMALL Ery/ul (0-5); Epithelial Cells RARE /HPF (FEW); Glucose NEGATIVE (NEGATIVE); Ketones NEGATIVE (NEGATIVE); Leukocyte Esterase NEGATIVE (NEGATIVE); Mucus MODERATE /HPF (NEGATIVE); Nitrite NEGATIVE (NEGATIVE); Protein,Urine Dip NEGATIVE (Negative); Specific Gravity 1.024 (1.005-1.025); Urobilinogen 4 mg/dL (0-1); WBC 0-2 /HPF (0-5)
[2018-12-12 20:17] VITALS: BP 117/75
--- NOTE | 2018-12-12 20:36 | ERPHSYRPT ---
- History of Present Illness Historian: patient Exam Limitations: no limitations Patient Subjective Stated Complaint: pt reports abdominal pain for 5 days that has steadily increased. pt reports pain starts in the right lower abdomen that radiates to the left side and also moves down toward the pelvis. pt reports recent hospital stay for vertigo r/t UTI. pt reports she has completed her oral antibiotic regimen. Triage Nursing Assessment: pt is aox3, pupils perrl, afebrile, resps easy and non labored, radial pulses strong and equal, cap refill < 3 seconds, pt skin pale warm dry. abdominal pain radiating from right to left abdomen. pain to the pelvis. abd is soft and tender with palpation. bowel sounds present and normoacitve x4. Physician History: Pt is a 33 y/o female that presented to the ED with complains of abdominal pain. Pt was in the ED before with abdominal pain, and had recent diagnosis of UTI, and was placed on ABX, that she just finished. Pt denies F/C/S. No SOB or cough. No N/V/D, no dysuria, frequency and urgency. Pt's pain is in RLQ, and pt states, still has her appendix, but did have a cholecystectomy. Timing/Duration: day(s) Activities at Onset: none Quality: aching, cramping Abdominal Pain Onset Location: RLQ Pain Radiation: periumbilical Severity of Pain-Max: moderate Severity of Pain-Current: moderate Modifying Factors: Improves With: analgesics Previous symptoms: same symptoms as today Allergies/Adverse Reactions: codeine Allergy (Intermediate, Verified 12/12/18 18:47) Rash erythromycin base Allergy (Intermediate, Verified 12/12/18 18:47) Rash shellfish derived Allergy (Intermediate, Verified 12/12/18 18:47) Rash hydrocodone bitartrate [From Vicodin] Adverse Reaction (Mild, Verified 12/12/18 18:47) ITCH Home Medications: Alprazolam 1 mg [Xanax 1 mg] 1 mg PO BID 09/16/15 [History] Diltiazem HCl 30 mg [Cardizem 30 MG] 90 mg PO TID 05/25/16 [History] Hx Tetanus, Diphtheria Vaccination/Date Given: Yes Hx Influenza Vaccination/Date Given: Yes Hx Pneumococcal Vaccination/Date Given: No Immunizations Up to Date: Yes - Review of Systems Constitutional: No Fever, No Chills Eyes: No Symptoms Ears, Nose, & Throat: No Symptoms Respiratory: No Cough, No Dyspnea Cardiac: No Chest Pain, No Edema, No Syncope Abdominal/Gastrointestinal: Abdominal Pain Genitourinary Symptoms: No Dysuria Musculoskeletal: No Back Pain, No Neck Pain Neurological: No Dizziness, No Focal Weakness, No Sensory Changes - Past Medical History Pertinent Past Medical History: Yes Neurological History: No Pertinent History, Peripheral Neuropathy ENT History: No Pertinent History Cardiac History: Arrhythmia, No Pertinent History, Other Respiratory History: No Pertinent History Endocrine Medical History: No Pertinent History Musculoskeletal History: No Pertinent History GI Medical History: Ulcer, GERD History: No Pertinent History Psycho-Social History: Anxiety Female Reproductive Disorders: Abnormal Uterine Bleeding Other Medical History: hypoglycemia, esophagus spasm, vertigo - Past Surgical History Past Surgical History: Yes Neuro Surgical History: No Pertinent History Cardiac: No Pertinent History Respiratory: No Pertinent History Gastrointestinal: Cholecystectomy Genitourinary: No Pertinent History Musculoskeletal: Orthopedic Surgery Female Surgical History: Tubal Ligation, Dilation & Curettage Other Surgical History: left knee meniscus repair,left wrist cyst,Lap emily, colonoscopy and EGD - Social History Smoking Status: Current every day smoker How long have you smoked: 19 Exposure to second hand smoke: No Drug Use: none Patient Lives Alone: No - Female History Hx Last Menstrual Period: 11/11/18 Hx Now: No (tubal) - Nursing Vital Signs Nursing Vital Signs: Initial Vital Signs Temperature 98.3 F 12/12/18 18:37 Pulse Rate 76 12/12/18 18:37 Respiratory Rate 20 12/12/18 18:37 Blood Pressure 136/82 12/12/18 18:37 O2 Sat by Pulse Oximetry 97 12/12/18 18:37 Pain Scale Pain Intensity 7 - Physical Exam General Appearance: no apparent distress, alert Eye Exam: PERRL/EOMI, eyes nml inspection Ears, Nose, Throat Exam: normal ENT inspection, pharynx normal, moist mucous membranes Neck Exam: normal inspection, non-tender, supple, full range of motion Respiratory Exam: normal breath sounds, lungs clear, No respiratory distress Cardiovascular Exam: regular rate/rhythm, normal heart sounds Gastrointestinal/Abdomen Exam: tenderness (RLQ) Back Exam: normal inspection, normal range of motion, No CVA tenderness, No vertebral tenderness Extremity Exam: normal inspection, normal range of motion, pelvis stable Neurologic Exam: alert, 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, cooperative, normal mood/affect, nml cerebellar function, sensation nml, No motor deficits SpO2: 98 - CT Exams Abdomen/Pelvis CT Interpretation: Tele-radiologist Report (diffuse fecal stasis. Endometrial thickening. No acute or new finding.) Ordered Tests: Active Orders 24 hr Category Date Time Status ABDOMEN AND PELVIS W/0 CONTRAS [CT] Stat Exams 12/12/18 19:13 Taken UA W/RFX UR CULTURE Stat Lab 12/12/18 18:51 Completed Lab/Rad Data: Laboratory Results 12/12/18 Range/Units 18:51 Urine Color YELLOW (YELLOW) Urine Appearance SLIGHTLY CLOUDY (CLEAR) Urine pH 5.0 (5-6) Ur Specific [place] 1.024 (1.005-1.025) Urine Protein NEGATIVE (Negative) Urine Ketones NEGATIVE (NEGATIVE) Urine Blood SMALL (0-5) Clement/ul Urine Nitrite NEGATIVE (NEGATIVE) Urine Bilirubin NEGATIVE (NEGATIVE) Urine Urobilinogen 4 (0-1) mg/dL Ur Leukocyte Esterase NEGATIVE (NEGATIVE) Urine WBC (Auto) 0-2 (0-5) /HPF Urine RBC (Auto) 3-5 (0-2) /HPF U Epithel Cells (Auto) RARE (FEW) /HPF Urine Bacteria (Auto) RARE (NEGATIVE) /HPF Urine Mucus (Auto) MODERATE (NEGATIVE) /HPF Urine Culture Reflexed NO (NO) Urine Glucose NEGATIVE (NEGATIVE) mg/dL - Progress Progress: unchanged Progress Note: 12/12/18 20:36 Pt was seen and examined. Urina is clean, and the CT shows endometrial thickening, probably before her period. I explained to the pt, that she should f/u with her Saw Filer, to see is she has abdominal pain, secondary to her period, and maybe some hormonal treatment like control pills, or Depo provera, can help her pain. Pt can take Ibuprofen or Tylenol for pain. Discussed with : Jaye Will see patient in: office Counseled pt/family regarding: need for follow-up - Departure Departure Disposition: Home Clinical Impression: Abdominal pain Condition: Stable Critical Care Time: No Referrals: ARSALAN LONG [Primary Care Provider] - Additional Instructions: F/U with PCP and Saw Filer. Use Tylenol, and Ibuprofen for pain.
[2018-12-12 21:04] VITALS: PULSE 53; O2SAT 99
--- NOTE | 2018-12-13 09:03 | XRAY ---
Indication: Abdomen pain 5 days. Multiple contiguous axial images obtained through the abdomen and pelvis without contrast as ordered. Comparison: September 10, 2015. Lung bases demonstrates stable tiny left base calcified granuloma. New mild left basilar dependent atelectasis. No infiltrate or effusion. Heart is not enlarged. Noncontrasted stomach and bowel loops appear nonobstructed. Normal appendix. Again mild diffuse scattered colonic fecal debris throughout, more than before. Uterus remains enlarged again with prominent endometrial cavity and bilateral ovary follicular cysts. Again small cul-de-sac fluid presumed physiologic from ruptured/leaking cyst. No free air. Again previous cholecystectomy. Remaining liver, pancreas, spleen, adrenal glands, kidneys, ureters, bladder, and aorta appear unremarkable for noncontrast exam. Osseous structures intact. No ventral or inguinal hernias. Impression: 1. Worsening mild diffuse fecal stasis without obstruction. 2. Again prominent uterus/endometrial cavity with small cul-de-sac fluid. Correlate with patient's menstrual cycle. 3. Remaining CT abdomen/pelvis without contrast exam is negative. CT DI 18.11
== END 2018-12-12 21:10 | disposition home or self-care (01) ==
LOC: ED 18:22
DX: R10.31 Right lower quadrant pain (principal); Z79.899 Other long term (current) drug therapy
CPT/HCPCS: 74176; 81001; 99284

== ENCOUNTER 2019-02-28 10:37 | Day surgery (SDC) | payer OTHER ==
[2019-02-28] MEDS ORDERED: Sodium Chloride 0.9(Preservative Free) 10 ML IJ ONE (10:38)
[2019-02-28] MEDS ORDERED: Depo-Medrol 40 MG/ML IM ONE (10:38)
[2019-02-28] MEDS ORDERED: Ketamine HCl 50 MG/ML ONE (11:33)
[2019-02-28] MEDS ORDERED: DIPRIVAN 200 MG/20 ML IV ONE (11:33)
--- NOTE | 2019-02-28 13:01 | XRAY ---
Indication: Left L4-S1 IAN. Intraoperative fluoroscopy was provided for 16 seconds. 2 digital spot images submitted for interpretation demonstrates posterior needle tips projecting over the expected course of the left L4-L5 nerve roots. Small amount of contrast injected for needle tip placement. Correlate with intraoperative findings/report.
--- NOTE | 2019-02-28 13:04 | XRAY ---
16 seconds fluoroscopy time in surgery for left L4-S1 IAN.
[2019-02-28] MEDS ORDERED: Lactated Ringers 1,000 ML IV ONE (13:21)
== END 2019-02-28 12:05 | disposition home or self-care (01) ==
LOC: SDC-PAIN 10:37
PROVIDERS: ATTEND Psychiatry & Neurology Pain Medicine
DX: M54.16 Radiculopathy, lumbar region (principal); F41.8 Other specified anxiety disorders; Z79.899 Other long term (current) drug therapy
CPT/HCPCS: 64483; 64484; 72100; 77003; 84703; J1030; J2704; Q9966

== ENCOUNTER 2019-04-04 11:43 | Day surgery (SDC) | payer OTHER ==
[2019-04-04] MEDS ORDERED: Depo-Medrol 40 MG/ML IM ONE (11:44)
[2019-04-04] MEDS ORDERED: Sodium Chloride 0.9(Preservative Free) 10 ML IJ ONE (11:44)
[2019-04-04] MEDS ORDERED: DIPRIVAN 200 MG/20 ML IV ONE (12:53)
[2019-04-04] MEDS ORDERED: Ketamine HCl 50 MG/ML ONE (12:54)
[2019-04-04] MEDS ORDERED: Lactated Ringers 1,000 ML IV ONE (14:48)
--- NOTE | 2019-04-04 15:02 | XRAY ---
Indication: Right L4-S1 IAN. Intraoperative fluoroscopy was provided for 23 seconds. 3 digital spot image submitted for interpretation demonstrates posterior needle tips projecting over the expected course of the right L4 and L5 nerve roots nerve roots. Small amount of contrast injected for needle tip placement. Correlate with intraoperative findings/report.
--- NOTE | 2019-04-04 15:26 | XRAY ---
23 seconds of fluoroscopy was used in surgery for a right L4-L5, L5-S1 IAN.
== END 2019-04-04 13:23 | disposition home or self-care (01) ==
LOC: SDC-PAIN 11:43
PROVIDERS: ATTEND Psychiatry & Neurology Pain Medicine
DX: M54.16 Radiculopathy, lumbar region (principal); F41.8 Other specified anxiety disorders; K22.4 Dyskinesia of esophagus; E16.2 Hypoglycemia, unspecified; Z79.899 Other long term (current) drug therapy
CPT/HCPCS: 64483; 64484; 72100; 77003; 84703; J1030; J2704; Q9966

== ENCOUNTER 2019-05-16 13:31 | Day surgery (SDC) | payer OTHER ==
[~2019-05-16 13:31] MED LIST: Lactated Ringers 1,000 ML IV ONE
[2019-05-16] MEDS ORDERED: Depo-Medrol 40 MG/ML IM ONE (13:32)
[2019-05-16] MEDS ORDERED: Xylocaine-Mpf 2% 5 Ml Vial IJ ONE (13:32)
[2019-05-16] MEDS ORDERED: DIPRIVAN 200 MG/20 ML IV ONE (15:35)
[2019-05-16] MEDS ORDERED: Ketamine HCl 50 MG/ML ONE (15:36)
--- NOTE | 2019-05-16 16:41 | XRAY ---
Indication: Bilateral L3-L5 MBB. Intraoperative fluoroscopy was provided for 11 seconds. Single digital spot image submitted for interpretation demonstrates posterior needle tips projecting over the expected course of the left and right L3-L5 nerve roots. Correlate with intraoperative findings/report.
--- NOTE | 2019-05-16 16:43 | XRAY ---
11 seconds fluoroscopy time in surgery for bilateral L3-L5 MBB.
[2019-05-16] MEDS ORDERED: Lactated Ringers 1,000 ML IV ONE (18:22)
== END 2019-05-16 16:12 | disposition home or self-care (01) ==
LOC: SDC-PAIN 13:31
PROVIDERS: ATTEND Psychiatry & Neurology Pain Medicine
DX: M47.816 Spondylosis without myelopathy or radiculopathy, lumbar region (principal); F41.8 Other specified anxiety disorders; K22.4 Dyskinesia of esophagus; E16.2 Hypoglycemia, unspecified; Z79.899 Other long term (current) drug therapy
CPT/HCPCS: 64493; 64494; 72020; 77002; 84703; J1030; J2704

== ENCOUNTER 2019-08-22 10:30 | Day surgery (SDC) | payer OTHER ==
[2019-08-22] MEDS ORDERED: Depo-Medrol 40 MG/ML IM ONE (10:31)
[2019-08-22] MEDS ORDERED: Xylocaine-Mpf 2% 5 Ml Vial IJ ONE (10:31)
[2019-08-22] MEDS ORDERED: Ketamine HCl 50 MG/ML ONE (11:58)
[2019-08-22] MEDS ORDERED: DIPRIVAN 200 MG/20 ML IV ONE (11:58)
--- NOTE | 2019-08-22 12:46 | XRAY ---
Indication: Left L4-S1 MBB. Intraoperative fluoroscopy was provided for 9 seconds. Single digital spot image submitted for interpretation demonstrates posterior needle tips projecting over the expected course of the left L4-S1 nerve root. Correlate with intraoperative findings/report.
[2019-08-22] MEDS ORDERED: Lactated Ringers 1,000 ML IV ONE (14:04)
--- NOTE | 2019-08-22 16:42 | XRAY ---
9 seconds fluoroscopy time in surgery for left L4-S1 MBB.
== END 2019-08-22 12:27 | disposition home or self-care (01) ==
LOC: SDC-PAIN 10:30
PROVIDERS: ATTEND Psychiatry & Neurology Pain Medicine
DX: M47.816 Spondylosis without myelopathy or radiculopathy, lumbar region (principal); M47.817 Spondylosis without myelopathy or radiculopathy, lumbosacral region; F41.8 Other specified anxiety disorders; E16.2 Hypoglycemia, unspecified; Z79.899 Other long term (current) drug therapy
CPT/HCPCS: 64493; 64494; 72020; 77002; 84703; J1030; J2704

== ENCOUNTER 2020-04-29 05:57 | Day surgery (SDC) | payer OTHER ==
[~2020-04-29 05:57] MED LIST changes: +DIPRIVAN 200 MG/20 ML IV ONE; -Lactated Ringers 1,000 ML IV ONE
[2020-04-29] MEDS ORDERED: Lactated Ringers 1,000 ML IV SCH (06:30)
[2020-04-29 09:09] VITALS: BP 145/77; PULSE 61; O2SAT 99
--- NOTE | 2020-04-29 11:15 | OP ---
SURGERY DATE/TIME: 04/29/2020 0759 PREOPERATIVE DIAGNOSIS: Diarrhea and rectal bleeding. POSTOPERATIVE DIAGNOSIS: Scattered sigmoid diverticula otherwise normal colon. PROCEDURE: Colonoscopy. SURGEON: Dr. Cee. ANESTHESIA: MAC. Medications given by anesthesia department. HISTORY: The patient is a 35 year old white female presenting now for colonoscopic evaluation. She reports she has been having problems intermittently with bleeding and diarrhea. The patient was felt the need to have endoscopic evaluation. She was appraised the risks of the procedure including risk of perforation, untoward reaction to medication, bleeding and missed lesions. The patient verbalized her understanding and desired to have the procedure performed. DESCRIPTION OF PROCEDURE: The patient was given the medications by the anesthesia department had continuous pulse oximetry, ECG monitoring, intermittent blood pressure monitoring and tidal CO2 monitoring during the examination. She was placed in the left lateral decubitus position. A digital rectal examination was performed and revealed normal anal sphincter tone, no masses, no fissure and no hemorrhoids. The flexible Olympus pediatric colonoscope was used to intubate the rectum. A view of the colon was developed sequentially to the cecum including approximately 20 cm into the terminal ileum. Upon insertion and withdrawal, including a retroflex view in the rectum, was noted occasional scattered sigmoid diverticula. No other mucosal lesions were encountered. The scope was removed from the patient who tolerated the procedure well and sent back to OP recovery in good condition. The prep was noted to be fair to good with some liquid stool. We were able to suction clear seeing greater than 98% of the colon.
== END 2020-04-29 09:25 | disposition home or self-care (01) ==
LOC: SDC 05:57
PROVIDERS: ATTEND Family Medicine
DX: K57.30 Diverticulosis of large intestine without perforation or abscess without bleeding (principal); K92.1 Melena; R19.7 Diarrhea, unspecified
CPT/HCPCS: 84703; J2704

== ENCOUNTER 2020-07-04 17:53 | Emergency (ER) | payer OTHER ==
--- NOTE | 2020-07-04 18:29 | ERPHSYRPT ---
- History of Present Illness Source: patient Exam Limitations: no limitations Patient Subjective Stated Complaint: Weakness Triage Nursing Assessment: Patient brought back to ED via w/c and transferred self to bed. Patient A+O X3. Patient's skin pink, warm and dry. Patient complains of slurred speech earlier today at 1430 then she went to sleep. Patient woke up around 1630 and noticed her right side was weak and numb. Patient's smile noted drooping on right side. 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 Time of Onset/Last Time Seen Normal: symptoms started around 430pm Timing/Duration: today Severity: mild Character of Deficits: new weakness, altered sensation, impaired speech, Right Facial Deficits: no difficulties Baseline/Normal Cognition: alert 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 Current Cognition: alert 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 Baseline Gait: walks w/o assistance Associated Symptoms: weakness, numbness/tingling in legs/feet, slurred speech, No trouble walking, No vision changes, No chest pain, No headache Hx Tetanus, Diphtheria Vaccination/Date Given: Yes Hx Influenza Vaccination/Date Given: Yes Hx Pneumococcal Vaccination/Date Given: No Immunizations Up to Date: Yes <PAULINO MOLINA - Last Filed: 07/04/20 18:55> <EVANGELISTA CARNEY - Last Filed: 07/05/20 02:10> - History of Present Illness Time Seen by Provider: 07/04/20 18:26 Physician History: Patient woke up around 1630 and noticed her right side was weak and numb. Patient's noted that her smile drooping on right side. c/o hand fruit coordinator weaker on right side. Symptoms were almost gone when came to ER (PAULINO MOLINA) Allergies/Adverse Reactions: codeine Allergy (Intermediate, Verified 07/04/20 18:03) Rash erythromycin base Allergy (Intermediate, Verified 07/04/20 18:03) Rash shellfish derived Allergy (Intermediate, Verified 07/04/20 18:03) Rash hydrocodone bitartrate [From Vicodin] Adverse Reaction (Mild, Verified 07/04/20 18:03) ITCH Home Medications: Alprazolam 1 mg [Xanax 1 mg] 1 mg PO BID 09/16/15 [History] Diltiazem HCl 30 mg [Cardizem 30 MG] 90 mg PO TID 05/25/16 [History] Acetaminophen 500 mg [Tylenol Extra Strength 500 mg] 1,500 mg PO HS 04/25/20 [History] Loratadine 10 mg [Claritin 10 mg] 10 mg PO DAILY 04/25/20 [History] Meclizine HCl 25 mg [Antivert 25 mg] 25 mg PO QID 04/25/20 [History] Omeprazole 40 mg PO DAILY 04/25/20 [History] Venlafaxine HCl ER 37.5 mg [Effexor ER 37.5 MG] 37.5 mg PO DAILY 04/25/20 [History] Travel Risk - International Travel Have you traveled outside of the country in past 3 weeks: No - Coronavirus Screening Are you exhibiting any of the following symptoms?: No Close contact with a COVID-19 positive Pt in past 14-21 Days: Yes <DULCE MOLINAYESH - Last Filed: 07/04/20 18:55> - Review of Systems Constitutional: Weakness, No Fever, No Chills Eyes: No Symptoms Ears, Nose, & Throat: No Symptoms Respiratory: No Cough, No Dyspnea Cardiac: No Chest Pain, No Edema, No Syncope Abdominal/Gastrointestinal: No Abdominal Pain, No Nausea, No Vomiting, No Diarrhea Genitourinary Symptoms: No Dysuria Musculoskeletal: No Back Pain, No Neck Pain Skin: No Rash Neurological: Focal Weakness, Sensory Changes, Speech Changes, No Dizziness, No Gait Changes, No Seizure Psychological: No Symptoms Endocrine: No Symptoms All Other Systems: Reviewed and Negative <DULCE MOLINAYESH - Last Filed: 07/04/20 18:55> - Past Medical History Pertinent Past Medical History: Yes Neurological History: No Pertinent History, Peripheral Neuropathy ENT History: No Pertinent History Cardiac History: Arrhythmia, Deep Vein Thrombosis, High Cholesterol, Other Respiratory History: No Pertinent History Endocrine Medical History: No Pertinent History Musculoskeletal History: No Pertinent History GI Medical History: Ulcer, GERD History: No Pertinent History Psycho-Social History: Anxiety Female Reproductive Disorders: Abnormal Uterine Bleeding Other Medical History: hypoglycemia, esophagus spasm, vertigo - Past Surgical History Past Surgical History: Yes Neuro Surgical History: No Pertinent History Cardiac: No Pertinent History Respiratory: No Pertinent History Gastrointestinal: Cholecystectomy Genitourinary: No Pertinent History Musculoskeletal: Orthopedic Surgery Female Surgical History: Tubal Ligation, Dilation & Curettage Other Surgical History: left knee meniscus repair,left wrist cyst,Lap emily, colonoscopy and EGD - Social History Smoking Status: Current every day smoker How long have you smoked: 19 Exposure to second hand smoke: No Drug Use: none Patient Lives Alone: No - Female History Hx Now: No <TRACYKEISHA ESPINOSH - Last Filed: 07/04/20 18:55> - [place] Coma Scale Best Eye Response ([place]): (4) open spontaneously Best Verbal Response ([place]): (5) oriented Best Motor Response ([place]): (6) obeys commands [place] Total: 15 - Physical Exam General Appearance: no apparent distress, alert Eye Exam: bilateral eye: PERRL, EOMI Ears, Nose, Throat Exam: normal ENT inspection, moist mucous membranes Neck Exam: normal inspection, non-tender, supple, full range of motion Respiratory: normal breath sounds, lungs clear, airway intact, No respiratory distress Cardiovascular: regular rate/rhythm, No edema Gastrointestinal: soft, No tenderness, No distention Back Exam: normal inspection Extremity Exam: normal inspection, No pedal edema Mental 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, 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: tongue midline Coordination/Gait: normal finger to nose, normal gait Skin Exam: normal color, warm, dry, No rash SpO2: 98 <TRACY, - Last Filed: 07/04/20 18:55> - Nursing Vital Signs Nursing Vital Signs: Initial Vital Signs Temperature 98.5 F 07/04/20 18:06 Pulse Rate 97 H 07/04/20 18:06 Respiratory Rate 18 07/04/20 18:06 O2 Sat by Pulse Oximetry 98 07/04/20 18:06 Pain Scale Pain Intensity 0 - Course Nursing assessment & vital signs reviewed: Yes EKG Interpreted by Me: RATE (70), Sinus Rhythm, Sinus [place], NORMAL AXIS, NORMAL INTERVALS - CT Exams Other CT Interpretation: Tele-radiologist Report (CTA head and neck are negative for large vessel stenosis or occlusion.) <EVANGELISTA CARNEY - Last Filed: 07/05/20 02:10> Ordered Tests: Active Orders 24 hr Category Date Time Status Classroom Aide STAT Care 07/04/20 18:33 Active EKG-ER Only STAT Care 07/04/20 18:32 Active IV Insertion STAT Care 07/04/20 18:16 Active NPO (ED) STAT Care 07/04/20 18:[address] ANGIOGRAPHY NECK [CT] Stat Exams 07/04/20 22:46 Taken CTA HEAD W AND/OR WO CONTRAST [CT] Stat Exams 07/04/20 21:38 Taken HEAD WITHOUT CONTRAST [CT] Stat Exams 07/04/20 18:00 Completed BMP Stat Lab 07/04/20 18:10 Completed CBC W DIFF Stat Lab 07/04/20 18:10 Completed POCT GLUCOSE Stat Lab 07/04/20 18:14 Completed UA W/RFX UR CULTURE Stat Lab 07/04/20 18:10 Completed Medication Summary Generic Name Dose Route Start Last Admin Trade Name Freq PRN Reason Stop Dose Admin Sodium Chloride 1,000 mls @ 100 mls/hr 07/04/20 23:00 07/04/20 22:56 Sodium Chloride 0.9% 1000 Ml IV 08/03/20 22:59 100 mls/hr .Q10H SHAISTA Administration Discontinued Medications Generic Name Dose Route Start Last Admin Trade Name Freq PRN Reason Stop Dose Admin Aspirin 324 mg 07/04/20 22:47 07/04/20 22:56 Baby Aspirin 81 Mg Chew PO 07/04/20 22:48 324 mg STAT ONE Administration Lab/Rad Data: Laboratory Result Diagrams 07/04/20 18:10 07/04/20 18:10 Laboratory Results 07/04/20 07/04/20 07/04/20 Range/Units 18:14 18:10 18:10 WBC 12.0 H (4.0-10.5) K/mm3 RBC 4.19 (4.1-5.4) M/mm3 Hgb 14.0 (12.0-16.0) gm/dl Hct 42.6 (35-47) % MCV 101.7 H (78-100) fl MCH 33.4 H (26-32) pg MCHC 32.9 (32-36) g/dl RDW 11.9 (11.5-14.0) % Plt Count 307 (150-450) K/mm3 MPV 9.9 (7.5-11.0) fl Gran % 74.9 H (36.0-66.0) % Eos # (Auto) 0.21 (0-0.5) Absolute Lymphs (auto) 2.25 (1.0-4.6) Absolute Monos (auto) 0.50 (0.0-1.3) Lymphocytes % 18.8 L (24.0-44.0) % Monocytes % 4.2 (0.0-12.0) % Eosinophils % 1.8 (0.00-5.0) % Basophils % 0.3 (0.0-0.4) % Absolute Granulocytes 8.98 H (1.4-6.9) Basophils # 0.03 (0-0.4) Sodium 135 L (137-145) mmol/L Potassium 4.0 (3.5-5.1) mmol/L Chloride 107 (98-107) mmol/L Carbon Dioxide 20 L (22-30) mmol/L Anion Gap 11.7 (5-15) MEQ/L BUN 11 (7-17) mg/dL Creatinine 0.53 (0.52-1.04) mg/dL Estimated GFR > 60.0 ML/MIN Glucose 96 (74-106) mg/dL POC Glucometer 88 (74 to 106) mg/dL Calcium 8.9 (8.4-10.2) mg/dL Urine Color (YELLOW) Urine Appearance (CLEAR) Urine pH (5-6) Ur Specific [place] (1.005-1.025) Urine Protein (Negative) Urine Ketones (NEGATIVE) Urine Blood (0-5) Clement/ul Urine Nitrite (NEGATIVE) Urine Bilirubin (NEGATIVE) Urine Urobilinogen (0-1) mg/dL Ur Leukocyte Esterase (NEGATIVE) Urine WBC (Auto) (0-5) /HPF Urine RBC (Auto) (0-2) /HPF U Epithel Cells (Auto) (FEW) /HPF Urine Bacteria (Auto) (NEGATIVE) /HPF Urine Culture Reflexed (NO) Urine Glucose (NEGATIVE) mg/dL 07/04/20 Range/Units 18:10 WBC (4.0-10.5) K/mm3 RBC (4.1-5.4) M/mm3 Hgb (12.0-16.0) gm/dl Hct (35-47) % MCV (78-100) fl MCH (26-32) pg MCHC (32-36) g/dl RDW (11.5-14.0) % Plt Count (150-450) K/mm3 MPV (7.5-11.0) fl Gran % (36.0-66.0) % Eos # (Auto) (0-0.5) Absolute Lymphs (auto) (1.0-4.6) Absolute Monos (auto) (0.0-1.3) Lymphocytes % (24.0-44.0) % Monocytes % (0.0-12.0) % Eosinophils % (0.00-5.0) % Basophils % (0.0-0.4) % Absolute Granulocytes (1.4-6.9) Basophils # (0-0.4) Sodium (137-145) mmol/L Potassium (3.5-5.1) mmol/L Chloride (98-107) mmol/L Carbon Dioxide (22-30) mmol/L Anion Gap (5-15) MEQ/L BUN (7-17) mg/dL Creatinine (0.52-1.04) mg/dL Estimated GFR ML/MIN Glucose (74-106) mg/dL POC Glucometer (74 to 106) mg/dL Calcium (8.4-10.2) mg/dL Urine Color YELLOW (YELLOW) Urine Appearance CLEAR (CLEAR) Urine pH 6.0 (5-6) Ur Specific [place] 1.010 (1.005-1.025) Urine Protein NEGATIVE (Negative) Urine Ketones TRACE (NEGATIVE) Urine Blood NEGATIVE (0-5) Clement/ul Urine Nitrite NEGATIVE (NEGATIVE) Urine Bilirubin NEGATIVE (NEGATIVE) Urine Urobilinogen NEGATIVE (0-1) mg/dL Ur Leukocyte Esterase NEGATIVE (NEGATIVE) Urine WBC (Auto) NONE (0-5) /HPF Urine RBC (Auto) 0-2 (0-2) /HPF U Epithel Cells (Auto) RARE (FEW) /HPF Urine Bacteria (Auto) NONE (NEGATIVE) /HPF Urine Culture Reflexed NO (NO) Urine Glucose NEGATIVE (NEGATIVE) mg/dL - Progress Progress: improved Counseled pt/family regarding: lab results, diagnosis, rad results <EVNAGELISTA CARNEY - Last Filed: 07/05/20 02:10> - Progress Progress Note: 07/05/20 01:[address] Carney at approximately [address] Carney advised to follow- up on urinalysis and discharge accordingly. Upon reevaluation however patient complained of weakness and tingling to the right side of her face and upper extremity. Patient states her right lower extremity was somewhat weak however she attributed this to the previous injury. In light of these complaints we decided to move forward with NIH evaluation as well as formal teleneuro consult. Teleneuro consult recommended CT a head neck which were performed and resulted as negative. No large vessel occlusion or stenosis. Patient received aspirin. IV fluids infused. Teleneuro advised MRI. We will not have MRI available until Tuesday. [facility]. Case discussed with Dr. Bell who accepts transfer. Plan of care discussed with patient. She agrees [facility] evaluation and treatment. Patient understand that they do not have neurology on staff there however the reassessment given neuro will be teleneuro evaluation. Patient voices no other complaints at this time. Patient reassessed. Vital stable. Neurologic exam stable as well. 07/05/20 01:40 (EVANGELISTA CARNEY) <PAULINO MOLINA - Last Filed: 07/04/20 18:55> - Departure Departure Disposition: Transfer Critical Care Time: No <EVANGELISTA CARNEY - Last Filed: 07/05/20 02:10> - Departure Clinical Impression: TIA (transient ischemic attack), Leukocytosis Condition: Stable Referrals: ARSALAN LONG [Primary Care Provider] -
[2020-07-04 18:40] LABS: Absolute Neutrophil Ct (ANC) 8.98 (1.4-6.9); BASOPHIL % 0.3 % (0.0-0.4); Basophil (Absolute #) 0.03 (0-0.4); Eosinophil % 1.8 % (0.00-5.0); Eosinophil (Absolute #) 0.21 (0-0.5); Hematocrit 42.6 % (35-47); Lymphocyte (Absolute #) 2.25 (1.0-4.6); Lymphocytes % 18.8 % (24.0-44.0); Mean Cell Volume 101.7 fl (78-100); Mean Corpuscular Hemoglobin 33.4 pg (26-32); Mean Corpuscular Hgb Concent. 32.9 g/dl (32-36); Mean Platelet Volume 9.9 fl (7.5-11.0); Monocytes % 4.2 % (0.0-12.0); Neutrophil % 74.9 % (36.0-66.0); Platelet Count 307 K/mm3 (150-450); Red Blood Count 4.19 M/mm3 (4.1-5.4); Red Cell Distribution Width 11.9 % (11.5-14.0)
[2020-07-04 18:47] LABS: ANION GAP 11.7 MEQ/L (5-15); BLOOD UREA NITROGEN 11 mg/dL (7-17); CHLORIDE 107 mmol/L (98-107); Calcium 8.9 mg/dL (8.4-10.2); Carbon Dioxide 20 mmol/L (22-30); Creatinine 1 0.53 mg/dL (0.52-1.04); EST GLOMERULAR FILTRATION RATE > 60.0 ML/MIN; Glucose 96 mg/dL (74-106); SODIUM 135 mmol/L (137-145)
[2020-07-04 21:02] LABS: Appearance CLEAR (CLEAR); Bilirubin NEGATIVE (NEGATIVE); Blood NEGATIVE Ery/ul (0-5); Epithelial Cells RARE /HPF (FEW); Glucose NEGATIVE (NEGATIVE); Ketones TRACE (NEGATIVE); Leukocyte Esterase NEGATIVE (NEGATIVE); Nitrite NEGATIVE (NEGATIVE); Protein,Urine Dip NEGATIVE (Negative); RBC 0-2 /HPF (0-2); Urobilinogen NEGATIVE mg/dL (0-1)
--- NOTE | 2020-07-04 21:53 | XRAY ---
Indication: Right face/arm numbness. Slurred speech. Multiple contiguous axial images obtained through the head without contrast. Comparison: October 31, 2018. Normal appearing brain parenchyma, ventricles, and bony calvarium. 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 Visualized paranasal sinuses and mastoid air cells are clear. Impression: Continued normal CT head without contrast exam. Comment: Preliminary interpretation was made by [facility]. No critical discrepancy.
[2020-07-04] MEDS ORDERED: BABY ASPIRIN 81 MG CHEW PO ONE (22:47)
[2020-07-04] MEDS ORDERED: Sodium Chloride 0.9% 1000 ML 1,000 ML ONE (22:55)
[2020-07-04] MEDS ORDERED: Sodium Chloride 0.9% 1000 ML 1,000 ML IV SCH (23:00)
[2020-07-05 00:45] VITALS: O2SAT 98
[2020-07-05 02:15] VITALS: BP 100/59; PULSE 60
--- NOTE | 2020-07-05 08:36 | XRAY ---
Indication: Right face/arm numbness. Slurred speech. Conventional contrast enhanced CTA neck performed using 100 cc Isovue 370 contrast. Two-dimensional sagittal and coronal reformatted images obtained. Additional 3-dimensional reformatted images obtained using separate workstation. Comparison: None. Left and right carotid arteries of the neck demonstrates normal CTA appearance to the common carotid, carotid bulb, internal carotid, and external carotid arteries. Vertebral arteries are bilaterally symmetric without critical stenosis, obstruction, or AV malformation. Visualized soft tissues demonstrates scattered small cervical lymph nodes bilaterally. No pathologic lymphadenopathy. Supra-and infraglottic airway widely patent. Cervical spine is intact. CTA head reported separately. Impression: Normal CTA neck with contrast exam. Comment: Preliminary interpretation was made by [facility]. No critical discrepancy.
--- NOTE | 2020-07-05 08:40 | XRAY ---
Indication: Right face/arm numbness. Slurred speech. Conventional contrast enhanced CTA head performed using 100 cc Isovue 370 contrast. Two-dimensional sagittal and coronal reformatted images obtained. Additional 3-dimensional reformatted images obtained using separate workstation. Comparison: None. CTA neck and CT head reported separately. Distal internal carotid arteries are bilaterally symmetric without critical stenosis, obstruction, or AV malformation. Normal carotid terminus with normal branching A1 and M1 segments bilaterally. More distal anterior and middle cerebral arteries are normal in CTA appearance. Anterior communicating and posterior to indicating arteries not visualized. Posterior circulation demonstrates normal course and caliber to the basilar artery with normal branching posterior cerebral and superior cerebellar arteries bilaterally. No critical stenosis/obstruction. There is no abnormal enhancing intra-or extra-axial mass. Impression: Normal CTA head with contrast exam. Comment: Preliminary interpretation was made by [facility]. No critical discrepancy.
== END 2020-07-05 02:31 | disposition short-term general hospital (02) ==
LOC: ED 17:53
DX: G45.9 Transient cerebral ischemic attack, unspecified (principal); D72.829 Elevated white blood cell count, unspecified; Z79.899 Other long term (current) drug therapy; Z86.718 Personal history of other venous thrombosis and embolism; E78.00 Pure hypercholesterolemia, unspecified
CPT/HCPCS: 36000; 36415; 70450; 70496; 70498; 80048; 81001; 82947; 85025; 93005; 93041; 96360; 96361; 99285; U0003; A9270-GY

== ENCOUNTER 2020-09-05 11:48 | Emergency (ER) | payer OTHER ==
[2020-09-05 12:01] VITALS: BP 117/78; PULSE 88; O2SAT 97
--- NOTE | 2020-09-05 12:18 | ERPHSYRPT ---
- History of Present Illness Time Seen by Provider: 09/05/20 12:00 Source: patient Exam Limitations: no limitations Patient Subjective Stated Complaint: Pt fell in the bathtub and hit her left hand and injuring it Triage Nursing Assessment: Pt brought to the ER by her dad, vitals wnl, right hand swelling and bruising, rates pain as 7/10, denies hitting head or any other injuries Physician History: Patient is a 35-year-old white female who fell in the bathtub at home tried to catch herself with her right hand denies any other injury the hand is bruised and swollen on the dorsum no gross deformity. Denies other injury. Occurred: just prior to arrival Method of Injury: fell Quality: aching Severity of Pain-Max: moderate Severity of Pain-Current: moderate Extremities Pain Location: hand: right Modifying Factors: Improves With: movement Associated Symptoms: none Allergies/Adverse Reactions: codeine Allergy (Intermediate, Verified 09/05/20 12:01) Rash erythromycin base Allergy (Intermediate, Verified 09/05/20 12:01) Rash shellfish derived Allergy (Intermediate, Verified 09/05/20 12:01) Rash hydrocodone bitartrate [From Vicodin] Adverse Reaction (Mild, Verified 09/05/20 12:01) ITCH Home Medications: Alprazolam 1 mg [Xanax 1 mg] 1 mg PO BID 09/16/15 [History] Diltiazem HCl 30 mg [Cardizem 30 MG] 90 mg PO TID 05/25/16 [History] Acetaminophen 500 mg [Tylenol Extra Strength 500 mg] 1,500 mg PO HS 04/25/20 [History] Loratadine 10 mg [Claritin 10 mg] 10 mg PO DAILY 04/25/20 [History] Meclizine HCl 25 mg [Antivert 25 mg] 25 mg PO QID 04/25/20 [History] Omeprazole 40 mg PO DAILY 04/25/20 [History] Venlafaxine HCl ER 37.5 mg [Effexor ER 37.5 MG] 37.5 mg PO DAILY 04/25/20 [History] Tizanidine HCl 4 mg [Zanaflex 4 MG] 4 mg PO HS 09/05/20 [History] Hx Tetanus, Diphtheria Vaccination/Date Given: Yes Hx Influenza Vaccination/Date Given: Yes Hx Pneumococcal Vaccination/Date Given: No Travel Risk - International Travel Have you traveled outside of the country in past 3 weeks: No - Coronavirus Screening Are you exhibiting any of the following symptoms?: No Close contact with a COVID-19 positive Pt in past 14-21 Days: No - Review of Systems Constitutional: No Fever, No Chills Eyes: No Symptoms Ears, Nose, & Throat: No Symptoms Respiratory: No Cough, No Dyspnea Cardiac: No Chest Pain, No Edema, No Syncope Abdominal/Gastrointestinal: No Abdominal Pain, No Nausea, No Vomiting, No Diarrhea Genitourinary Symptoms: No Dysuria Musculoskeletal: Fall, Injury, Joint Pain, Joint Swelling, No Back Pain, No Neck Pain Skin: No Rash Neurological: No Dizziness, No Focal Weakness, No Sensory Changes Psychological: No Symptoms Endocrine: No Symptoms All Other Systems: Reviewed and Negative - Past Medical History Pertinent Past Medical History: Yes Neurological History: Peripheral Neuropathy, Stroke, Other ENT History: No Pertinent History Cardiac History: Arrhythmia, Hypertension Respiratory History: No Pertinent History Endocrine Medical History: No Pertinent History Musculoskeletal History: No Pertinent History GI Medical History: Ulcer, GERD History: No Pertinent History Psycho-Social History: Anxiety Female Reproductive Disorders: Abnormal Uterine Bleeding Other Medical History: PTSD, anxiety, depression - Past Surgical History Past Surgical History: Yes Neuro Surgical History: No Pertinent History Cardiac: No Pertinent History Respiratory: No Pertinent History Gastrointestinal: Cholecystectomy Genitourinary: No Pertinent History Musculoskeletal: Orthopedic Surgery Female Surgical History: Tubal Ligation, Dilation & Curettage Other Surgical History: left knee meniscus repair,left wrist cyst,Lap emily, colonoscopy and EGD - Social History Smoking Status: Current every day smoker How long have you smoked: 19 Exposure to second hand smoke: Yes Drug Use: none Patient Lives Alone: No - Female History Hx Now: No - Nursing Vital Signs Nursing Vital Signs: Initial Vital Signs Temperature 98.0 F 09/05/20 11:55 Pulse Rate 88 09/05/20 11:55 Blood Pressure 117/78 09/05/20 11:55 O2 Sat by Pulse Oximetry 97 09/05/20 11:55 Pain Scale Pain Intensity 8 - Physical Exam General Appearance: mild distress, alert Eyes, Ears, Nose, Throat Exam: normal ENT inspection Neck Exam: non-tender, supple Cardiovascular/Respiratory Exam: chest non-tender, no respiratory distress Abdominal Exam: non-tender, No guarding Back Exam: normal inspection, No vertebral tenderness Shoulder Exam: normal inspection Elbow/Forearm Exam: normal inspection Wrist Exam: normal inspection, ecchymosis, No no evidence of injury Hand Exam: abrasions, ecchymosis (Ecchymoses over the dorsum of the right hand with most over the metatarsal heads second third and fourth), limited ROM, soft tissue tenderness, stiffness, swelling Neuro/Tendon Exam: normal sensation, normal motor functions, normal tendon functions Mental Status Exam: alert, 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, cooperative Skin Exam: normal color, warm, dry SpO2 Interpretation: normal SpO2: 97 O2 Delivery: Room Air - Course Nursing assessment & vital signs reviewed: Yes - Radiology Exams Hand X-ray Interpretation: Interpreted by me, Negative Ordered Tests: Active Orders 24 hr Category Date Time Status HAND (MINIMUM 3 VIEWS) Stat Exams 09/05/20 12:09 Completed - Progress Progress: improved - Departure Departure Disposition: Home Clinical Impression: Hand contusion Condition: Stable Critical Care Time: No Referrals: ARSALAN LONG [Primary Care Provider] - Instructions: Contusion (DC) Additional Instructions: Patient was instructed to wear the splint 3 to 5 days. Prescriptions: Oxycodone HCl/Acetaminophen [Percocet 5-325 mg Tablet] 1 each PO Q6H PRN PRN 3 Days #12 tablet MDD 4 PRN Reason: Pain
--- NOTE | 2020-09-05 12:32 | XRAY ---
Indication: Pain and bruising following injury. Comparison: None 3 view right hand demonstrates mild posterior soft tissue swelling. No other bony, articular, or soft tissue abnormalities.
== END 2020-09-05 12:57 | disposition home or self-care (01) ==
LOC: ED 11:48
DX: M79.641 Pain in right hand (principal); S60.221A Contusion of right hand, initial encounter; W18.2XXA Fall in (into) shower or empty bathtub, initial encounter; Z79.899 Other long term (current) drug therapy
CPT/HCPCS: 73130; 99283; A4570

== ENCOUNTER 2021-04-09 16:48 | Emergency (ER) | payer OTHER ==
[2021-04-09 17:09] VITALS: BP 125/77; PULSE 66; O2SAT 97
[2021-04-09] MEDS ORDERED: TYLENOL 325 MG PO ONE (19:24)
--- NOTE | 2021-04-09 19:25 | ERPHSYRPT ---
- History of Present Illness Time Seen by Provider: 04/09/21 17:20 Source: patient Exam Limitations: no limitations Patient Subjective Stated Complaint: pt here for a fall today, she tripped over a bedframe and landed on her face about 30 mins ago, Triage Nursing Assessment: pt alert, resp easy, face mask in place, has abrasions to nose,forehead, and lip. abrasion to right knee, she co headache,nose pain and right lower leg pain Physician History: Patient is a 36-year-old female presents to our ED for evaluation of facial pain. Patient states she tripped over a bed frame today and fell forward onto her face. Patient complains of pain to her nose mild headache pain to her left krause. Patient has an abrasion to her nose her forehead and upper lip. No LOC. The fall was mechanical. The fall was not associated with any neuro cardiovascular symptomology. Symptoms are mild to moderate in intensity. Patient voices no other complaints concerns at this time. Timing/Duration: today Severity: moderate Modifying Factors: Improves With: other (Palpation and movement.) Associated Symptoms: denies symptoms Allergies/Adverse Reactions: codeine Allergy (Intermediate, Verified 04/09/21 17:14) Rash erythromycin base Allergy (Intermediate, Verified 04/09/21 17:14) Rash shellfish derived Allergy (Intermediate, Verified 04/09/21 17:14) Rash hydrocodone bitartrate [From Vicodin] Adverse Reaction (Mild, Verified 04/09/21 17:14) ITCH Home Medications: ALPRAZolam 1 MG [Xanax 1 mg] 1 mg PO BID 09/16/15 [History] Diltiazem HCl 30 mg [Cardizem 30 MG] 90 mg PO TID 05/25/16 [History] Loratadine 10 mg [Claritin 10 mg] 10 mg PO DAILY 04/25/20 [History] Meclizine HCl 25 mg [Antivert 25 mg] 25 mg PO QID 04/25/20 [History] Omeprazole 40 mg PO DAILY 04/25/20 [History] Tizanidine HCl 4 mg [Zanaflex 4 MG] 4 mg PO HS 09/05/20 [History] ALPRAZolam 1 MG [Xanax 1 mg] 1 ea TID 04/09/21 [History] Prazosin HCl [Minipress] 1 ea DAILY 04/09/21 [History] Sertraline HCl 50 mg [Zoloft 50 mg Tablet] 1 ea DAILY 04/09/21 [History] Hx Tetanus, Diphtheria Vaccination/Date Given: No Hx Influenza Vaccination/Date Given: No Hx Pneumococcal Vaccination/Date Given: No Immunizations Up to Date: Yes Travel Risk - International Travel Have you traveled outside of the country in past 3 weeks: No - Coronavirus Screening Are you exhibiting any of the following symptoms?: No Close contact with a COVID-19 positive Pt in past 14-21 Days: No - Vaccine Status Have you recieved a Covid-19 vaccination: No - Review of Systems Constitutional: No Symptoms, No Fever, No Chills Eyes: No Symptoms Ears, Nose, & Throat: No Symptoms Respiratory: No Symptoms, No Cough, No Dyspnea Cardiac: No Symptoms, No Chest Pain, No Edema, No Syncope Abdominal/Gastrointestinal: No Symptoms, No Abdominal Pain, No Nausea, No Vomit ing, No Diarrhea Genitourinary Symptoms: No Symptoms, No Dysuria Musculoskeletal: No Symptoms, No Back Pain, No Neck Pain Skin: No Symptoms, No Rash Neurological: No Symptoms, No Dizziness, No Focal Weakness, No Sensory Changes Psychological: No Symptoms Endocrine: No Symptoms Hematologic/Lymphatic: No Symptoms Immunological/Allergic: No Symptoms All Other Systems: Reviewed and Negative - Past Medical History Pertinent Past Medical History: Yes Neurological History: Peripheral Neuropathy, Stroke, Other ENT History: No Pertinent History Cardiac History: Arrhythmia, Hypertension Respiratory History: No Pertinent History Endocrine Medical History: No Pertinent History Musculoskeletal History: Arthritis, Degenerative Disk Disease GI Medical History: Ulcer, GERD History: No Pertinent History Psycho-Social History: Anxiety Female Reproductive Disorders: Abnormal Uterine Bleeding Other Medical History: PTSD, anxiety, depression - Past Surgical History Past Surgical History: Yes Neuro Surgical History: No Pertinent History Cardiac: No Pertinent History Respiratory: No Pertinent History Gastrointestinal: Cholecystectomy Genitourinary: No Pertinent History Musculoskeletal: Orthopedic Surgery Female Surgical History: Tubal Ligation, Dilation & Curettage Other Surgical History: left knee meniscus repair,left wrist cyst,Lap emily, colonoscopy and EGD - Social History Smoking Status: Current every day smoker How long have you smoked: 19 Exposure to second hand smoke: Yes Drug Use: none Patient Lives Alone: No - Female History Hx Last Menstrual Period: ablasion Hx Now: No - Nursing Vital Signs Nursing Vital Signs: Initial Vital Signs Temperature 97.0 F 04/09/21 17:09 Pulse Rate 66 04/09/21 17:09 Respiratory Rate 18 04/09/21 17:09 Blood Pressure 125/77 04/09/21 17:09 O2 Sat by Pulse Oximetry 97 04/09/21 17:09 Pain Scale Pain Intensity 6 - Physical Exam General Appearance: no apparent distress, alert, other (Abrasion to patient's nose. Forehead and lip. No active bleeding. The abrasions are very superficial) Eye Exam: PERRL/EOMI, eyes nml inspection Ears, Nose, Throat Exam: normal ENT inspection, TMs normal, pharynx normal, moist mucous membranes Neck Exam: normal inspection, non-tender, supple, full range of motion, other (No neck pain. Cervical spine cleared clinically.) Respiratory Exam: normal breath sounds, lungs clear, airway intact, No respiratory distress Cardiovascular Exam: regular rate/rhythm, normal heart sounds, normal peripheral pulses Gastrointestinal/Abdomen Exam: soft, normal bowel sounds, No tenderness, No mass Back Exam: normal inspection, normal range of motion, No CVA tenderness, No vertebral tenderness Extremity Exam: normal inspection, normal range of motion, pelvis stable, other (Superficial abrasion to right knee. There are some tenderness along the left krause. Patient requesting an x-ray of her left krause. Bilateral extremities are neurovascular intact distally.) Neurologic Exam: alert, 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, cooperative, normal mood/affect, nml cerebellar function, nml station & gait, sensation nml, No motor deficits Skin Exam: normal color, warm, dry, No rash Lymphatic Exam: No adenopathy SpO2 Interpretation: normal SpO2: 97 O2 Delivery: Room Air - Course Nursing assessment & vital signs reviewed: Yes - Radiology Exams Lower Leg X-ray Interpretation: Interpreted by me (X-ray left lower leg negative for fracture dislocations. No soft tissue abnormalities observed.) - CT Exams Head CT Interpretation: Tele-radiologist Report (Continued normal CT head compared to 07/04/2020.) Maxillofacial Bones CT Interpretation: Tele-radiologist Report (No comps. Normal CT facial bones.) Ordered Tests: Active Orders 24 hr Category Date Time Status FACIAL BONES WO CONTRAST [CT] Stat Exams 04/09/21 18:16 Taken HEAD WITHOUT CONTRAST [CT] Stat Exams 04/09/21 18:15 Taken LOWER LEG Stat Exams 04/09/21 18:16 Taken - Progress Progress: improved Progress Note: Patient reassessed. She feels well. CT head facial bones and x-ray of the left lower extremity are within normal limits. Patient received Tylenol for pain control. She voices no other complaints concerns at this time. Will discharge home. Patient agrees to follow-up with primary care doctor within 48 hours for reevaluation. Portions of this note were created with voice recognition technology. There may be grammatical, spelling, punctuation or sound alike errors 04/09/21 19:30 Counseled pt/family regarding: diagnosis, need for follow-up, rad results - Departure Departure Disposition: Home Clinical Impression: Fall, Abrasion Condition: Stable Critical Care Time: No Referrals: ARSALAN LONG [Primary Care Provider] - Additional Instructions: Discharge/Care Plan SILVINAARAMIS MAZARIEGOS was seen on 04/09/21 in the Emergency Room. The patient was counseled regarding Diagnosis,Lab results, Imaging studies, need for follow up and when to return to the Emergency Room. Prescriptions given: Discharge Note I have spoken with the patient and/or caregivers. I have explained the patient's condition, diagnosis and treatment plan based on the information available to me at this time. I have answered the patient's and/or caregiver's questions and addressed any concerns. The patient and/or caregivers have as good understanding of the patient's diagnosis, condition and treatment plan as can be expected at this point. The vital signs have been stable. The patient's condition is stable and appropriate for discharge from the emergency department. The patient will pursue further outpatient evaluation with the primary care physician or other designated or consulting physician as outlined in the discharge instructions. The patient and/or caregivers are agreeable to this plan of care and follow-up instructions have been explained in detail. The patient and/or caregivers have received these instruction. The patient/and or caregivers are aware that any significant change in condition or worsening of symptoms should prompt an immediate return to this or the closest emergency department or call 911.
[2021-04-09] MEDS ORDERED: TYLENOL 325 MG ONE (19:31)
--- NOTE | 2021-04-10 08:37 | XRAY ---
Indication: Pain following fall. Comparison: None 2 view left lower leg demonstrates 1.4 cm proximal tibia shaft healed fibrous cortical defect. No other bony, articular, or soft tissue abnormalities.
--- NOTE | 2021-04-10 08:37 | XRAY ---
Indication: Nose injury following fall. Intracranial hemorrhage. Multiple contiguous axial images obtained through the head without contrast. Comparison: July 04, 2020. Continued normal appearing brain parenchyma, ventricles, and bony calvarium. Again anatomic variant for cavum septum pellucidum. Visualized paranasal sinuses and mastoid air cells are clear. Impression: Continued normal CT head without contrast exam.
--- NOTE | 2021-04-10 08:39 | XRAY ---
Indication: Nose injury following fall. Multiple contiguous axial images obtained through the facial bones. Sagittal and coronal reformatted images obtained. Comparison: None. A few dental amalgams produces beam artifact. Axial images negative for acute fracture, suspicious bony lesions, or radiopaque foreign body. Orbits including roof, kemp, and floors intact. Paranasal sinuses and nasal passages are clear. Minimal nasal septal deviation to the left. Visualized noncontrasted soft tissues are unremarkable. Visualized cervical spine intact. Impression: Negative CT facial bones. Incidental minimal nasal septal deviation.
== END 2021-04-09 19:49 | disposition home or self-care (01) ==
LOC: ED 16:48
DX: S00.31XA Abrasion of nose, initial encounter (principal); S00.81XA Abrasion of other part of head, initial encounter; S00.511A Abrasion of lip, initial encounter; S80.211A Abrasion, right knee, initial encounter; W01.0XXA Fall on same level from slipping, tripping and stumbling without subsequent striking against object, initial encounter; R51.9 Headache, unspecified; M79.661 Pain in right lower leg; Z79.899 Other long term (current) drug therapy
CPT/HCPCS: 70450; 70486; 73590; 99284; A9270-GY

== ENCOUNTER 2021-05-13 17:52 | Emergency (ER) | payer OTHER ==
[2021-05-13] MEDS ORDERED: PERCOCET TABLET 5/325MG PO ONE (18:03)
[2021-05-13] MEDS ORDERED: PERCOCET TABLET 5/325MG ONE (18:11)
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
== END 2021-05-13 19:55 | disposition home or self-care (01) ==
LOC: ED 17:52
DX: S16.1XXA Strain of muscle, fascia and tendon at neck level, initial encounter (principal); V49.88XA Car occupant (driver) (passenger) injured in other specified transport accidents, initial encounter; Y92.410 Unspecified street and highway as the place of occurrence of the external cause; Z72.0 Tobacco use; Z79.899 Other long term (current) drug therapy; M25.511 Pain in right shoulder
CPT/HCPCS: 72125; 99285; 99291; A9270-GY

== ENCOUNTER 2021-09-24 10:49 | Day surgery (SDC) | payer OTHER ==
[2021-09-24] MEDS ORDERED: Depo-Medrol 40 MG/ML IM ONE (10:50)
[2021-09-24] MEDS ORDERED: Sodium Chloride 0.9(Preservative Free) 10 ML IJ ONE (10:50)
[2021-09-24] MEDS ORDERED: DIPRIVAN 200 MG/20 ML IV ONE (12:20)
[2021-09-24] MEDS ORDERED: Xylocaine-Mpf 2% 5 Ml Vial ONE (12:23)
[2021-09-24] MEDS ORDERED: TORAdol 30 mg Injection ONE (12:47)
--- NOTE | 2021-09-24 13:10 | XRAY ---
Indication: Right L4-S1 transforaminal IAN. Intraoperative fluoroscopy provided for 29 seconds. 4 digital spot images submitted for interpretation demonstrates posterior needle tips projecting over the expected right L4 and L5 nerve roots. Small amount of contrast injected for needle tip placement. Correlate with intraoperative findings/report.
[2021-09-24] MEDS ORDERED: Lactated Ringers 1,000 ML IV ONE (13:55)
--- NOTE | 2021-09-24 15:32 | XRAY ---
29 seconds of fluoroscopy was used in surgery for a right L4-S1 transforaminal IAN.
== END 2021-09-24 12:48 | disposition home or self-care (01) ==
LOC: SDC-PAIN 10:49
PROVIDERS: ATTEND Psychiatry & Neurology Pain Medicine
DX: M54.16 Radiculopathy, lumbar region (principal); Z79.899 Other long term (current) drug therapy
CPT/HCPCS: 64483; 64484; 72100; 77002; 84703; J1030; J1885; J2704; Q9966

== ENCOUNTER 2021-12-17 16:36 | Emergency (ER) | payer OTHER ==
--- NOTE | 2021-12-17 17:01 | XRAY ---
Indication: Right hand and right mouth numbness 3-4 days. Multiple contiguous axial images obtained through the head without contrast. Comparison: April 09, 2021. Normal appearing brain parenchyma, ventricles, and bony calvarium. Again anatomic variant for cavum septum pellucidum. Visualized paranasal sinuses and mastoid air cells are clear. Impression: Continued normal CT head without contrast exam.
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
[2021-12-17 18:18] VITALS: PULSE 70
[2021-12-17 18:23] VITALS: BP 112/70
[2021-12-17 21:55] VITALS: O2SAT 97
== END 2021-12-17 18:23 | disposition home or self-care (01) ==
LOC: ED 16:36
DX: R20.2 Paresthesia of skin (principal); M79.641 Pain in right hand; Z72.0 Tobacco use; Z79.899 Other long term (current) drug therapy; Z28.310 Unvaccinated for COVID-19
CPT/HCPCS: 70450; 99283

== ENCOUNTER 2021-12-24 21:24 | Emergency (ER) | payer OTHER ==
[2021-12-24] MEDS ORDERED: PERCOCET TABLET 5/325MG PO ONE ×2 (22:14→22:30)
[2021-12-24] MEDS ORDERED: PERCOCET TABLET 5/325MG ONE ×2 (22:19→22:36)
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
[2021-12-24 22:36] VITALS: BP 114/70; PULSE 76
--- NOTE | 2021-12-25 08:49 | XRAY ---
Indication: Pain following fall. Comparison: None 3 view right ankle obtained. No bony, articular, or soft tissue abnormalities.
--- NOTE | 2021-12-25 08:51 | XRAY ---
Indication: Pain following fall. Comparison: None 3 view right wrist demonstrates old 5th metacarpal shaft fracture. No other bony, articular, or soft tissue abnormalities.
[2021-12-27 13:07] VITALS: O2SAT 95
== END 2021-12-24 22:59 | disposition home or self-care (01) ==
LOC: ED 21:24
DX: S93.401A Sprain of unspecified ligament of right ankle, initial encounter (principal); S60.211A Contusion of right wrist, initial encounter; W10.9XXA Fall (on) (from) unspecified stairs and steps, initial encounter; Z91.81 History of falling; M25.571 Pain in right ankle and joints of right foot; M25.531 Pain in right wrist; Z87.820 Personal history of traumatic brain injury; Z72.0 Tobacco use; Z79.891 Long term (current) use of opiate analgesic; Z79.899 Other long term (current) drug therapy; Z28.310 Unvaccinated for COVID-19
CPT/HCPCS: 73110; 73610; 99284; L3908; A9270-GY

== ENCOUNTER 2021-12-25 13:01 | Emergency (ER) | payer OTHER ==
[2021-12-25 13:39] LABS: Bacteria RARE /HPF (NEGATIVE); Epithelial Cells FEW /HPF (FEW); Mucus SLIGHT /HPF (NEGATIVE)
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
--- NOTE | 2021-12-25 13:53 | XRAY ---
Indication: Dizziness. Right hand/right lip numbness 3 months. Status post fall one day earlier. Multiple contiguous axial images obtained through the head without contrast. Normal appearing brain parenchyma, ventricles, and bony calvarium. Again anatomic variant for cavum septum pellucidum. Visualized paranasal sinuses and mastoid air cells are clear. Impression: Continued normal CT head without contrast exam compared to ER CT head exam 8 days ago.
[2021-12-25 14:06] VITALS: BP 124/72; PULSE 62
[2021-12-25 15:02] LABS: Appearance CLEAR (CLEAR); Bilirubin SMALL (NEGATIVE); Glucose NEGATIVE (NEGATIVE); Ketones NEGATIVE (NEGATIVE); Ph 5.5 (5-6); Protein,Urine Dip 30 (Negative); RBC TRACE-INTACT Ery/ul (0-5); Specific Gravity >=1.030 (1.005-1.025)
[2021-12-25 15:03] LABS: Nitrite NEGATIVE (NEGATIVE); Urine Cultured Indicated? YES; Urobilinogen 1 mg/dL (0-1)
[2021-12-25] MEDS ORDERED: KEFLEX 500 MG PO ONE (15:05)
[2021-12-25 15:10] VITALS: O2SAT 96
[2021-12-25] MEDS ORDERED: KEFLEX 500 MG ONE (15:24)
[2021-12-25 17:50] LABS: Dipstick done @ ? MAIN LAB
== END 2021-12-25 15:34 | disposition home or self-care (01) ==
LOC: ED 13:01
DX: R42 Dizziness and giddiness (principal); N39.0 Urinary tract infection, site not specified; Z72.0 Tobacco use; Z79.891 Long term (current) use of opiate analgesic; Z79.899 Other long term (current) drug therapy; Z28.310 Unvaccinated for COVID-19
CPT/HCPCS: 70450; 81015; 87086; 93005; 99284; A9270-GY

== ENCOUNTER 2022-01-26 14:52 | Emergency (ER) | payer OTHER ==
[2022-01-26 16:02] VITALS: BP 118/76; O2SAT 98
[2022-01-26] MEDS ORDERED: Sodium Chloride 0.9% 1000 ML 1,000 ML IV SCH (16:30)
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
[2022-01-26] MEDS ORDERED: Sodium Chloride 0.9% 1000 ML 1,000 ML ONE (17:15)
[2022-01-26 17:20] LABS: Appearance CLEAR (CLEAR)
[2022-01-26 17:21] LABS: Absolute Neutrophil Ct (ANC) 8.27 x10^3/uL (1.4-6.9); Basophil (Absolute #) 0.07 x10^3/uL (0-0.4); Eosinophil % 1.5 % (0.00-5.0); Eosinophil (Absolute #) 0.17 x10^3/uL (0-0.5); Hematocrit 43.6 % (35-47); Hemoglobin 14.5 g/dL (12.0-16.0); Lymphocyte (Absolute #) 2.18 x10^3/uL (1.0-4.6); Lymphocytes % 19.4 % (24.0-44.0); Mean Cell Volume 103.1 fL (78-100); Mean Corpuscular Hemoglobin 34.3 pg (26-32); Mean Corpuscular Hgb Concent. 33.3 g/dL (32-36); Mean Platelet Volume 11.5 fL (7.5-11.0); Monocyte (Absolute #) 0.48 x10^3/uL (0.0-1.3); Monocytes % 4.3 % (0.0-12.0); Neutrophil % 73.8 % (36.0-66.0); Platelet Count 155 x10^3/uL (150-450); Red Blood Count 4.23 x10^6/uL (4.1-5.4); Red Cell Distribution Width 11.9 % (11.5-14.0); White Blood Count 11.2 x10^3/uL (4.0-10.5)
[2022-01-26 17:21] LABS: Bilirubin SMALL (NEGATIVE); Dipstick done @ ? MAIN LAB; Glucose NEGATIVE (NEGATIVE); Ketones TRACE (NEGATIVE); Nitrite NEGATIVE (NEGATIVE); Protein,Urine Dip TRACE (Negative); RBC NEGATIVE Ery/ul (0-5); Specific Gravity >=1.030 (1.005-1.025); Urobilinogen 1 mg/dL (0-1)
[2022-01-26 17:25] LABS: ALBUMIN 3.9 g/dL (3.5-5.0); ALKALINE PHOSPHATASE 76 U/L (38-126); BLOOD UREA NITROGEN 12 mg/dL (7-17); CHLORIDE 107 mmol/L (98-107); Calcium 9.2 mg/dL (8.4-10.2); Carbon Dioxide 23 mmol/L (22-30); Creatinine 1 0.61 mg/dL (0.52-1.04); EST GLOMERULAR FILTRATION RATE > 60.0 ML/MIN; Glucose 89 mg/dL (74-106); LIPASE 69 U/L (23-300); Potassium 3.7 mmol/L (3.5-5.1); SGOT/AST 19 U/L (14-36); SGPT/ALT 13 U/L (0-35); SODIUM 137 mmol/L (137-145); Total Protein 6.4 g/dL (6.3-8.2)
[2022-01-26 17:26] LABS: Epithelial Cells RARE /HPF (FEW); Mucus MANY /HPF (NEGATIVE); RBC 0-2 /HPF (0-2)
[2022-01-26 17:27] LABS: Urine Cultured Indicated? NO
[2022-01-26 17:35] VITALS: PULSE 61
[2022-01-26] MEDS ORDERED: MORPHINE SULFATE 4 MG INJ IV ONE (18:13)
[2022-01-26] MEDS ORDERED: MORPHINE SULFATE 4 MG INJ ONE (18:51)
--- NOTE | 2022-01-27 08:41 | XRAY ---
Indication: Abdomen pain,, back pain, bloody stools, and nausea. Multiple contiguous axial images obtained through the abdomen and pelvis without contrast. Comparison: December 12, 2018 Lung bases demonstrate mild left base dependent atelectasis with stable tiny calcified granuloma. No infiltrate or effusion. Heart not enlarged. Noncontrasted stomach and bowel loops appear nonobstructed with normal appendix. Mild diffuse scattered colonic fecal debris throughout less than before. Mild sigmoid diverticulosis without diverticulitis. New 3.3 cm left ovary cyst. Again previous cholecystectomy. No free fluid/air. Remaining liver, pancreas, spleen, adrenal glands, kidneys, ureters, bladder, uterus, and aorta are unremarkable for noncontrast exam. Osseous structures intact. Impression: 1. New 3.3 cm left ovary cyst. 2. Again mild diffuse fecal stasis and mild sigmoid diverticulosis. 3. Remaining CT abdomen/pelvis without contrast exam is negative.
== END 2022-01-26 19:36 | disposition home or self-care (01) ==
LOC: ED 14:52
DX: K57.30 Diverticulosis of large intestine without perforation or abscess without bleeding (principal); E86.0 Dehydration; N83.202 Unspecified ovarian cyst, left side; R10.13 Epigastric pain; R10.31 Right lower quadrant pain; M54.9 Dorsalgia, unspecified; R11.2 Nausea with vomiting, unspecified; Z72.0 Tobacco use; Z79.899 Other long term (current) drug therapy; Z28.310 Unvaccinated for COVID-19
CPT/HCPCS: 36415; 74176; 80053; 81015; 83690; 84484; 85025; 96374; 96375; 99283; J2270

== ENCOUNTER 2022-01-31 16:12 | Emergency (ER) | payer OTHER ==
[2022-01-31] MEDS ORDERED: Zofran 4 MG/2 ML VIAL IV ONE (16:49)
[2022-01-31] MEDS ORDERED: TORAdol 30 mg Injection IV ONE (16:49)
[2022-01-31] MEDS ORDERED: Sodium Chloride 0.9% 1000 ML 1,000 ML IV STA (16:49)
[2022-01-31 17:10] LABS: Appearance CLEAR (CLEAR); Bilirubin SMALL (NEGATIVE); Glucose NEGATIVE (NEGATIVE); Ketones TRACE (NEGATIVE); Ph 5.5 (5-6); Protein,Urine Dip NEGATIVE (Negative); RBC TRACE-INTACT Ery/ul (0-5); Specific Gravity >=1.030 (1.005-1.025); Urobilinogen 1 mg/dL (0-1)
[2022-01-31 17:11] LABS: Dipstick done @ ? MAIN LAB; Nitrite NEGATIVE (NEGATIVE)
[2022-01-31 17:12] LABS: Bacteria MODERATE /HPF (NEGATIVE); Epithelial Cells MANY /HPF (FEW); Mucus MANY /HPF (NEGATIVE); Urine Cultured Indicated? YES
[2022-01-31] MEDS ORDERED: Zofran 4 MG/2 ML VIAL ONE (17:12)
[2022-01-31] MEDS ORDERED: Sodium Chloride 0.9% 1000 ML 1,000 ML ONE (17:12)
[2022-01-31] MEDS ORDERED: TORAdol 30 mg Injection ONE (17:12)
[2022-01-31 17:27] VITALS: O2SAT 95
[2022-01-31 17:28] LABS: Basophil (Absolute #) 0.03 x10^3/uL (0-0.4); Eosinophil % 1.4 % (0.00-5.0); Eosinophil (Absolute #) 0.14 x10^3/uL (0-0.5); Hematocrit 41.3 % (35-47); Hemoglobin 14.1 g/dL (12.0-16.0); Lymphocyte (Absolute #) 2.05 x10^3/uL (1.0-4.6); Lymphocytes % 21.2 % (24.0-44.0); Mean Corpuscular Hemoglobin 34.5 pg (26-32); Mean Corpuscular Hgb Concent. 34.1 g/dL (32-36); Mean Platelet Volume 10.4 fL (7.5-11.0); Monocyte (Absolute #) 0.52 x10^3/uL (0.0-1.3); Monocytes % 5.4 % (0.0-12.0); Neutrophil % 71.4 % (36.0-66.0); Platelet Count 236 x10^3/uL (150-450); Red Blood Count 4.09 x10^6/uL (4.1-5.4); White Blood Count 9.7 x10^3/uL (4.0-10.5)
[2022-01-31 17:42] LABS: ALBUMIN 3.8 g/dL (3.5-5.0); ALKALINE PHOSPHATASE 64 U/L (38-126); ANION GAP 9.8 MEQ/L (5-15); BLOOD UREA NITROGEN 11 mg/dL (7-17); CHLORIDE 105 mmol/L (98-107); Calcium 9.3 mg/dL (8.4-10.2); Carbon Dioxide 26 mmol/L (22-30); Creatinine 1 0.58 mg/dL (0.52-1.04); EST GLOMERULAR FILTRATION RATE > 60.0 ML/MIN; Glucose 88 mg/dL (74-106); LIPASE 52 U/L (23-300); Potassium 3.5 mmol/L (3.5-5.1); SGOT/AST 47 U/L (14-36); SGPT/ALT 33 U/L (0-35); SODIUM 138 mmol/L (137-145); Total Protein 6.5 g/dL (6.3-8.2)
[2022-01-31] MEDS ORDERED: ROCEPHIN 2 Gm-D5w 50ML BAG** 2 G/50 ML IVPB IV STA (17:43)
--- NOTE | 2022-01-31 17:46 | ERPHSYRPT ---
- History of Present Illness Time Seen by Provider: 01/31/22 16:17 Historian: patient Exam Limitations: no limitations Patient Subjective Stated Complaint: C/O left lower abdomen pain with nausea; no vomiting. States, "I feel like it takes me a long time to start going when I need to pee." Triage Nursing Assessment: Ambulated back to ED with a cane without difficulties; is wearing a walking boot. Alert and anwering questions appropriately. Abdomen is soft. Physician History: 36-year-old female presented in the ER with chief complaint of left lower quadrant pain for the last few weeks. She was evaluated recently in the ER with negative CT abdomen pelvis for any acute intra-abdominal/pelvic findings. Patient reports having constant pain with nausea. No fever or chills reported does report having some increased frequency and hesitancy of urine. No fever or chills reported. Timing/Duration: week(s), gradual onset, worse Activities at Onset: rest Quality: sharpness Abdominal Pain Onset Location: LLQ, suprapubic Pain Radiation: no radiation Severity of Pain-Max: moderate Severity of Pain-Current: moderate Modifying Factors: Worsens With: movement, palpation Associated Symptoms: nausea Previous symptoms: same symptoms as today Allergies/Adverse Reactions: erythromycin base Allergy (Intermediate, Verified 01/31/22 16:28) Rash shellfish derived Allergy (Intermediate, Verified 01/31/22 16:28) Rash Home Medications: Diltiazem HCl 30 mg [Cardizem 30 MG] 90 mg PO TID 05/25/16 [History] Loratadine 10 mg [Claritin 10 mg] 10 mg PO DAILY 04/25/20 [History] Meclizine HCl 25 mg [Antivert 25 mg] 25 mg PO QID 04/25/20 [History] Omeprazole 40 mg PO DAILY 04/25/20 [History] Tizanidine HCl 4 mg [Zanaflex 4 MG] 4 mg PO HS 09/05/20 [History] ALPRAZolam 1 MG [Xanax 1 mg] 1 ea TID 04/09/21 [History] Prazosin HCl [Minipress] 1 ea DAILY 04/09/21 [History] Sertraline HCl 50 mg [Zoloft 50 mg Tablet] 1 ea DAILY 04/09/21 [History] Atorvastatin Calcium 20 mg PO DAILY 01/26/22 [History] Estradiol 1 mg [Estrace 1 mg] 1 mg PO DAILY 01/26/22 [History] Progesterone, Micronized [Progesterone] 100 mg PO DAILY 01/26/22 [History] Hx Tetanus, Diphtheria Vaccination/Date Given: Yes Hx Influenza Vaccination/Date Given: No Hx Pneumococcal Vaccination/Date Given: No Immunizations Up to Date: Yes Travel Risk - International Travel Have you traveled outside of the country in past 3 weeks: No - Coronavirus Screening Are you exhibiting any of the following symptoms?: No Close contact with a COVID-19 positive Pt in past 14-21 Days: No - Vaccine Status Have you recieved a Covid-19 vaccination: No - Review of Systems Constitutional: No Symptoms Eyes: No Symptoms Ears, Nose, & Throat: No Symptoms Respiratory: No Symptoms Cardiac: No Symptoms Abdominal/Gastrointestinal: Abdominal Pain, Nausea Genitourinary Symptoms: Frequency, Hesitancy Musculoskeletal: No Symptoms Skin: No Symptoms Neurological: No Symptoms Psychological: No Symptoms Endocrine: No Symptoms Hematologic/Lymphatic: No Symptoms Immunological/Allergic: No Symptoms - Past Medical History Pertinent Past Medical History: Yes Neurological History: Other ENT History: No Pertinent History Cardiac History: Other Respiratory History: No Pertinent History Endocrine Medical History: No Pertinent History Musculoskeletal History: Degenerative Disk Disease, Fractures GI Medical History: Ulcer, GERD History: No Pertinent History Psycho-Social History: Anxiety, Depression Female Reproductive Disorders: Abnormal Uterine Bleeding Other Medical History: TBI, PTSD, ESOPHAGEAL AND HEART SPASMS. HX OF FRACTURES IN RIGHT SHOULDER "NEVER HEALED CORRECTLY WITH NERVE DAMAGE" - NO SURGERY. ARTHROSCOPY X 2 LEFT KNEE DUE TO MENISCAL ISSUES WITH MOST RECENT 1 YEAR AGO - Past Surgical History Past Surgical History: Yes Neuro Surgical History: No Pertinent History Cardiac: No Pertinent History Respiratory: No Pertinent History Gastrointestinal: Cholecystectomy Genitourinary: No Pertinent History Musculoskeletal: Orthopedic Surgery Female Surgical History: Tubal Ligation, Dilation & Curettage Other Surgical History: left knee meniscus repair,left wrist cyst,Lap emily, colonoscopy and EGD - Social History Smoking Status: Current every day smoker How long have you smoked: 19 years Exposure to second hand smoke: Yes Drug Use: none Patient Lives Alone: No Significant Family History: no pertinent family hx - Female History Hx Last Menstrual Period: a year ago Hx Now: No - Nursing Vital Signs Nursing Vital Signs: Initial Vital Signs Temperature 98.2 F 01/31/22 16:28 Pulse Rate 83 01/31/22 16:28 Respiratory Rate 17 01/31/22 16:28 Blood Pressure 133/81 01/31/22 16:28 O2 Sat by Pulse Oximetry 98 01/31/22 16:28 Pain Scale Pain Intensity 7 - Physical Exam General Appearance: no apparent distress, alert Eye Exam: PERRL/EOMI Ears, Nose, Throat Exam: normal ENT inspection, pharynx normal Neck Exam: normal inspection, supple, full range of motion Respiratory Exam: normal breath sounds, lungs clear Cardiovascular Exam: regular rate/rhythm, normal heart sounds Gastrointestinal/Abdomen Exam: soft, normal bowel sounds, tenderness (Left lower quadrant/flank area) Extremity Exam: pelvis stable Neurologic Exam: alert, 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, cooperative Skin Exam: normal color SpO2 Interpretation: normal SpO2: 95 O2 Delivery: Room Air Ordered Tests: Active Orders 24 hr Category Date Time Status IV Insertion STAT Care 01/31/22 16:49 Active NPO (ED) STAT Care 01/31/22 16:49 Active CBC W DIFF Stat Lab 01/31/22 17:24 Completed CMP Stat Lab 01/31/22 17:24 Completed CULTURE,URINE Stat Lab 01/31/22 17:02 Received HCG,QUALITATIVE URINE Stat Lab 01/31/22 17:02 Completed LIPASE Stat Lab 01/31/22 17:24 Completed UA W/RFX CULTURE Stat Lab 01/31/22 17:02 Completed Medication Summary Discontinued Medications Generic Name Dose Route Start Last Admin Trade Name Rhea PRN Reason Stop Dose Admin Sodium Chloride 1,000 mls @ 999 mls/hr 01/31/22 16:49 01/31/22 18:15 Sodium Chloride 0.9% 1000 Ml IV 01/31/22 17:49 Infused .Q1H1M STA Infusion Sodium Chloride Confirm 01/31/22 17:12 Sodium Chloride 0.9% 1000 Ml Administered 01/31/22 17:13 Dose 1,000 mls @ ud .ROUTE .STK-MED ONE Ceftriaxone Sodium/Dextrose 2 g in 50 mls @ 100 mls/hr 01/31/22 17:43 01/31/22 18:23 Rocephin 2 Gm-D5w 50ml Bag IV 01/31/22 18:12 Infused STAT STA Infusion Ceftriaxone Sodium/Dextrose Confirm 01/31/22 17:50 Rocephin 2 Gm-D5w 50ml Bag Administered 01/31/22 17:51 Dose 2 g in 50 mls @ ud IV .STK-MED ONE Ketorolac Tromethamine 30 mg 01/31/22 16:49 01/31/22 17:15 Ketorolac Tromethamine 30 Mg/Ml Inj IV 01/31/22 16:50 30 mg STAT ONE Administration Ketorolac Tromethamine Confirm 01/31/22 17:12 Ketorolac Tromethamine 30 Mg/Ml Inj Administered 01/31/22 17:13 Dose 30 mg .ROUTE .STK-MED ONE Ondansetron HCl 4 mg 01/31/22 16:49 01/31/22 17:15 Ondansetron Hcl 4 Mg/2 Ml Vial IV 01/31/22 16:50 4 mg STAT ONE Administration Ondansetron HCl Confirm 01/31/22 17:12 Ondansetron Hcl 4 Mg/2 Ml Vial Administered 01/31/22 17:13 Dose 4 mg .ROUTE .STK-MED ONE Lab/Rad Data: Laboratory Result Diagrams 01/31/22 17:24 01/31/22 17:24 Laboratory Results 01/31/22 01/31/22 01/31/22 Range/Units 17:24 17:24 17:02 WBC 9.7 (4.0-10.5) x10^3/uL RBC 4.09 L (4.1-5.4) x10^6/uL Hgb 14.1 (12.0-16.0) g/dL Hct 41.3 (35-47) % MCV 101.0 H (78-100) fL MCH 34.5 H (26-32) pg MCHC 34.1 (32-36) g/dL RDW 12.0 (11.5-14.0) % Plt Count 236 (150-450) x10^3/uL MPV 10.4 (7.5-11.0) fL Gran % 71.4 H (36.0-66.0) % Immature Gran % (Auto) 0.3 (0.00-0.4) % Nucleat RBC Rel Count 0.0 (0.00-0.1) % Eos # (Auto) 0.14 (0-0.5) x10^3/uL Immature Gran # (Auto) 0.03 (0.00-0.03) x10^3u/L Absolute Lymphs (auto) 2.05 (1.0-4.6) x10^3/uL Absolute Monos (auto) 0.52 (0.0-1.3) x10^3/uL Absolute Nucleated RBC 0.00 (0.00-0.01) x10^3u/L Lymphocytes % 21.2 L (24.0-44.0) % Monocytes % 5.4 (0.0-12.0) % Eosinophils % 1.4 (0.00-5.0) % Basophils % 0.3 (0.0-0.4) % Absolute Granulocytes 6.90 (1.4-6.9) x10^3/uL Basophils # 0.03 (0-0.4) x10^3/uL Sodium 138 (137-145) mmol/L Potassium 3.5 (3.5-5.1) mmol/L Chloride 105 (98-107) mmol/L Carbon Dioxide 26 (22-30) mmol/L Anion Gap 9.8 (5-15) MEQ/L BUN 11 (7-17) mg/dL Creatinine 0.58 (0.52-1.04) mg/dL Estimated GFR > 60.0 ML/MIN Glucose 88 (74-106) mg/dL Calcium 9.3 (8.4-10.2) mg/dL Total Bilirubin 0.40 (0.2-1.3) mg/dL AST 47 H (14-36) U/L ALT 33 (0-35) U/L Alkaline Phosphatase 64 (38-126) U/L Serum Total Protein 6.5 (6.3-8.2) g/dL Albumin 3.8 (3.5-5.0) g/dL Lipase 52 (23-300) U/L Urinalys Dipstick Clnc MAIN LAB Urine Color YELLOW (YELLOW) Urine Appearance CLEAR (CLEAR) Urine pH 5.5 (5-6) Ur Specific [place] >=1.030 (1.005-1.025) POC Urine Protein Conf NEGATIVE (Negative) Urine Ketones TRACE (NEGATIVE) Urine Nitrite NEGATIVE (NEGATIVE) Urine Bilirubin SMALL (NEGATIVE) Urine Urobilinogen 1 (0-1) mg/dL Urine Leukocytes SMALL (NEGATIVE) Urine WBC (Auto) 6-10 (0-5) /HPF Urine RBC (Auto) 3-5 (0-2) /HPF U Epithel Cells (Auto) MANY (FEW) /HPF Urine Bacteria (Auto) MODERATE (NEGATIVE) /HPF Urine RBC TRACE-INTACT (0-5) Clement/ul Urine Mucus (Auto) MANY (NEGATIVE) /HPF Ur Culture Indicated? YES Urine Glucose NEGATIVE (NEGATIVE) mg/dL Urine HCG, Qual (Negative) 01/31/22 Range/Units 17:02 WBC (4.0-10.5) x10^3/uL RBC (4.1-5.4) x10^6/uL Hgb (12.0-16.0) g/dL Hct (35-47) % MCV (78-100) fL MCH (26-32) pg MCHC (32-36) g/dL RDW (11.5-14.0) % Plt Count (150-450) x10^3/uL MPV (7.5-11.0) fL Gran % (36.0-66.0) % Immature Gran % (Auto) (0.00-0.4) % Nucleat RBC Rel Count (0.00-0.1) % Eos # (Auto) (0-0.5) x10^3/uL Immature Gran # (Auto) (0.00-0.03) x10^3u/L Absolute Lymphs (auto) (1.0-4.6) x10^3/uL Absolute Monos (auto) (0.0-1.3) x10^3/uL Absolute Nucleated RBC (0.00-0.01) x10^3u/L Lymphocytes % (24.0-44.0) % Monocytes % (0.0-12.0) % Eosinophils % (0.00-5.0) % Basophils % (0.0-0.4) % Absolute Granulocytes (1.4-6.9) x10^3/uL Basophils # (0-0.4) x10^3/uL Sodium (137-145) mmol/L Potassium (3.5-5.1) mmol/L Chloride (98-107) mmol/L Carbon Dioxide (22-30) mmol/L Anion Gap (5-15) MEQ/L BUN (7-17) mg/dL Creatinine (0.52-1.04) mg/dL Estimated GFR ML/MIN Glucose (74-106) mg/dL Calcium (8.4-10.2) mg/dL Total Bilirubin (0.2-1.3) mg/dL AST (14-36) U/L ALT (0-35) U/L Alkaline Phosphatase (38-126) U/L Serum Total Protein (6.3-8.2) g/dL Albumin (3.5-5.0) g/dL Lipase (23-300) U/L Urinalys Dipstick Clnc Urine Color (YELLOW) Urine Appearance (CLEAR) Urine pH (5-6) Ur Specific [place] (1.005-1.025) POC Urine Protein Conf (Negative) Urine Ketones (NEGATIVE) Urine Nitrite (NEGATIVE) Urine Bilirubin (NEGATIVE) Urine Urobilinogen (0-1) mg/dL Urine Leukocytes (NEGATIVE) Urine WBC (Auto) (0-5) /HPF Urine RBC (Auto) (0-2) /HPF U Epithel Cells (Auto) (FEW) /HPF Urine Bacteria (Auto) (NEGATIVE) /HPF Urine RBC (0-5) Clement/ul Urine Mucus (Auto) (NEGATIVE) /HPF Ur Culture Indicated? Urine Glucose (NEGATIVE) mg/dL Urine HCG, Qual NEGATIVE (Negative) - Progress Progress: improved Progress Note: 01/31/22 19:02 She is given Toradol for symptomatic relief, on reevaluation feeling better. No peritoneal signs. Has improvement in white count from 1 done few days ago. Gr ossly unremarkable chemistries. Does have UTI and given a dose of Rocephin in here and will continue with cefpodoxime to go home. Her CAT scan done few days ago was grossly unremarkable. Do not think she needs another CT abdomen pelvis. Discussed with patient about signs symptoms of worsening needing return to ER which she seems understanding. Counseled pt/family regarding: lab results, diagnosis, need for follow-up, rad results - Departure Departure Disposition: Home Clinical Impression: Acute UTI, Left sided abdominal pain Condition: Stable Critical Care Time: No Referrals: ARSALAN LONG [Primary Care Provider] - Follow up/PCP as directed (1-2 days for reevaluation) Instructions: Severe Abdominal Pain, Adult (DC) Additional Instructions: Take Tylenol/ibuprofen as needed for pain. Drink plenty of fluids. Follow-up with primary care for reevaluation. Return to ER for worsening abdominal pain or if develop nausea vomiting diarrhea/fever or chills etc. Prescriptions: Cefpodoxime Proxetil 200 mg [Vantin 200 mg] 200 mg PO BID 7 Days #14 tablet
[2022-01-31] MEDS ORDERED: ROCEPHIN 2 Gm-D5w 50ML BAG** 2 G/50 ML IVPB IV ONE (17:50)
[2022-01-31 19:17] VITALS: BP 104/69; PULSE 53
== END 2022-01-31 19:20 | disposition home or self-care (01) ==
LOC: ED 16:12
DX: N39.0 Urinary tract infection, site not specified (principal); R10.32 Left lower quadrant pain; R11.0 Nausea; R35.0 Frequency of micturition; Z72.0 Tobacco use; Z79.899 Other long term (current) drug therapy; Z28.310 Unvaccinated for COVID-19
CPT/HCPCS: 36000; 36415; 80053; 81015; 81025; 83690; 85025; 87086; 96365; 96374; 96375; 99284; J0696; J1885; J2405

== ENCOUNTER 2022-02-03 10:11 | Emergency (ER) | payer OTHER ==
[2022-02-03] MEDS ORDERED: Sodium Chloride 0.9% 1000 ML 1,000 ML IV STA ×2 (10:39→12:46)
[2022-02-03] MEDS ORDERED: Zofran 4 MG/2 ML VIAL IV ONE (10:39)
--- NOTE | 2022-02-03 10:39 | ERPHSYRPT ---
- History of Present Illness Time Seen by Provider: 02/03/22 10:36 Source: patient Exam Limitations: no limitations Physician History: This is a 36-year-old white female patient of Dr. Cee who has a history of anxiety issues and has been off of her alprazolam since January 31, 2022. She was unable to refill her alprazolam because the patient was also placed on some n arcotic pain medicine for recent upper extremity injury. In the last few days she has noticed increased anxiety, nausea, vomiting, diarrhea and shortness of breath symptoms. Patient has chronic vertigo issues, chronic migraine headaches, gastroesophageal reflux disease, degenerative disc disease, PTSD issues. Patient smokes cigarettes daily. She denies chest pain. Severity: mild (To moderate) Associated Symptoms: nausea, vomiting, shortness of breath, No abdominal pain, No chest pain, No fever Allergies/Adverse Reactions: erythromycin base Allergy (Intermediate, Verified 02/03/22 10:32) Rash shellfish derived Allergy (Intermediate, Verified 02/03/22 10:32) Rash Home Medications: Diltiazem HCl 30 mg [Cardizem 30 MG] 90 mg PO TID 05/25/16 [History] Meclizine HCl 25 mg [Antivert 25 mg] 25 mg PO QID 04/25/20 [History] Omeprazole 40 mg PO DAILY 04/25/20 [History] Tizanidine HCl 4 mg [Zanaflex 4 MG] 4 mg PO HS 09/05/20 [History] ALPRAZolam 1 MG [Xanax 1 mg] 1 ea TID 04/09/21 [History] Prazosin HCl [Minipress] 1 ea DAILY 04/09/21 [History] Sertraline HCl 50 mg [Zoloft 50 mg Tablet] 1 ea DAILY 04/09/21 [History] Atorvastatin Calcium 20 mg PO DAILY 01/26/22 [History] Hx Tetanus, Diphtheria Vaccination/Date Given: Yes Hx Influenza Vaccination/Date Given: No Hx Pneumococcal Vaccination/Date Given: No Travel Risk - International Travel Have you traveled outside of the country in past 3 weeks: No - Coronavirus Screening Are you exhibiting any of the following symptoms?: No Close contact with a COVID-19 positive Pt in past 14-21 Days: No - Vaccine Status Have you recieved a Covid-19 vaccination: No - Review of Systems Constitutional: No Symptoms Eyes: No Symptoms Ears, Nose, & Throat: No Symptoms Respiratory: Dyspnea, No Cough Cardiac: No Chest Pain Abdominal/Gastrointestinal: Nausea, Vomiting, Diarrhea, No Abdominal Pain, No Constipation Genitourinary Symptoms: No Symptoms Musculoskeletal: No Symptoms Skin: No Symptoms Neurological: No Symptoms Psychological: Anxiety Endocrine: No Symptoms Hematologic/Lymphatic: No Symptoms Immunological/Allergic: No Symptoms All Other Systems: Reviewed and Negative - Past Medical History Pertinent Past Medical History: Yes Neurological History: Other ENT History: No Pertinent History Cardiac History: Other Respiratory History: No Pertinent History Endocrine Medical History: No Pertinent History Musculoskeletal History: Degenerative Disk Disease, Fractures GI Medical History: Ulcer, GERD History: No Pertinent History Psycho-Social History: Anxiety, Depression Female Reproductive Disorders: Abnormal Uterine Bleeding Other Medical History: TBI, PTSD, ESOPHAGEAL AND HEART SPASMS. HX OF FRACTURES IN RIGHT SHOULDER "NEVER HEALED CORRECTLY WITH NERVE DAMAGE" - NO SURGERY. ARTHROSCOPY X 2 LEFT KNEE DUE TO MENISCAL ISSUES WITH MOST RECENT 1 YEAR AGO - Past Surgical History Past Surgical History: Yes Neuro Surgical History: No Pertinent History Cardiac: No Pertinent History Respiratory: No Pertinent History Gastrointestinal: Cholecystectomy Genitourinary: No Pertinent History Musculoskeletal: Orthopedic Surgery Female Surgical History: Tubal Ligation, Dilation & Curettage Other Surgical History: left knee meniscus repair,left wrist cyst,Lap emily, colonoscopy and EGD - Social History Smoking Status: Current every day smoker How long have you smoked: 19 years Exposure to second hand smoke: Yes Drug Use: none Patient Lives Alone: No Significant Family History: no pertinent family hx - Nursing Vital Signs Nursing Vital Signs: Initial Vital Signs Temperature 97.0 F 02/03/22 10:35 Pulse Rate 70 02/03/22 10:35 Respiratory Rate 20 02/03/22 10:35 Blood Pressure 137/88 02/03/22 10:35 O2 Sat by Pulse Oximetry 99 02/03/22 10:35 Pain Scale Pain Intensity 4 - Physical Exam General Appearance: no apparent distress, alert, anxiety, obese Eye Exam: PERRL/EOMI, eyes nml inspection Ears, Nose, Throat Exam: normal ENT inspection, moist mucous membranes Neck Exam: normal inspection, non-tender, supple, full range of motion Respiratory Exam: normal breath sounds, lungs clear, airway intact, No chest tenderness, No respiratory distress Cardiovascular Exam: regular rate/rhythm, normal heart sounds, normal peripheral pulses Gastrointestinal/Abdomen Exam: soft, normal bowel sounds, No tenderness Pelvic Exam: not done Rectal Exam: not done Back Exam: normal inspection, normal range of motion, No CVA tenderness, No vertebral tenderness Extremity Exam: normal inspection, normal range of motion, pelvis stable Neurologic Exam: alert, 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, cooperative, wet suit gluer II-XII nml as tested, nml cerebellar function, nml station & gait, other (Very anxious) Skin Exam: normal color, warm, dry Lymphatic Exam: No adenopathy SpO2 Interpretation: normal O2 Delivery: Room Air - Course Nursing assessment & vital signs reviewed: Yes EKG Interpreted by Me: RATE (75), Sinus Rhythm, NORMAL AXIS, NORMAL INTERVALS, NORMAL QRS, NORMAL ST-T, Other (There are no acute ischemic changes on today's EKG.) Ordered Tests: Active Orders 24 hr Category Date Time Status Rehabilitation Tech STAT Care 02/03/22 10:39 Active Clean Catch Urine Specimen STAT Care 02/03/22 10:39 Active IV Insertion STAT Care 02/03/22 10:39 Active Pulse Oximetry (ED) STAT Care 02/03/22 10:39 Active ACETAMINOPHEN Stat Lab 02/03/22 11:25 Completed BLOOD CULTURE Stat Lab 02/03/22 11:25 Received CBC W DIFF Stat Lab 02/03/22 11:20 Completed CMP Stat Lab 02/03/22 11:25 Completed CULTURE,URINE Stat Lab 02/03/22 11:18 Received D-DIMER QUANTITATIVE Stat Lab 02/03/22 11:31 Completed ETHYL ALCOHOL Stat Lab 02/03/22 11:25 Completed [place] Screen Stat Lab 02/03/22 11:20 Completed SALICYLATE Stat Lab 02/03/22 11:25 Completed TROPONIN Q3H Lab 02/03/22 11:31 Completed TROPONIN Q3H Lab 02/03/22 16:00 Ordered TROPONIN Q3H Lab 02/03/22 19:00 Ordered TROPONIN Q3H Lab 02/03/22 22:00 Ordered UA W/RFX CULTURE Stat Lab 02/03/22 11:18 Completed Urine Triage Profile Stat Lab 02/03/22 11:15 Completed Medication Summary Generic Name Dose Route Start Last Admin Trade Name Freq PRN Reason Stop Dose Admin Sodium Chloride 1,000 mls @ 999 mls/hr 02/03/22 12:46 02/03/22 13:07 Sodium Chloride 0.9% 1000 Ml IV 02/03/22 13:46 999 mls/hr .Q1H1M STA Administration Discontinued Medications Generic Name Dose Route Start Last Admin Trade Name Rhea PRN Reason Stop Dose Admin Diazepam 5 mg 02/03/22 10:41 02/03/22 11:25 Diazepam 10 Mg/2 Ml Disp.Syringe IV 02/03/22 10:42 5 mg STAT ONE Administration Diazepam Confirm 02/03/22 11:22 Diazepam 10 Mg/2 Ml Disp.Syringe Administered 02/03/22 11:23 Dose 10 mg .ROUTE .STK-MED ONE Sodium Chloride 1,000 mls @ 999 mls/hr 02/03/22 10:39 02/03/22 12:26 Sodium Chloride 0.9% 1000 Ml IV 02/03/22 11:39 Infused .Q1H1M STA Infusion Sodium Chloride Confirm 02/03/22 11:22 Sodium Chloride 0.9% 1000 Ml Administered 02/03/22 11:23 Dose 1,000 mls @ ud .ROUTE .STK-MED ONE Ceftriaxone Sodium/Dextrose 1 g in 50 mls @ 100 mls/hr 02/03/22 12:05 02/03/22 12:49 Rocephin 1 Gm-D5w 50 Ml Bag IV 02/03/22 12:34 Infused STAT STA Infusion Ceftriaxone Sodium/Dextrose Confirm 02/03/22 12:17 Rocephin 1 Gm-D5w 50 Ml Bag Administered 02/03/22 12:18 Dose 1 g in 50 mls @ ud IV .STK-MED ONE Sodium Chloride Confirm 02/03/22 13:04 Sodium Chloride 0.9% 1000 Ml Administered 02/03/22 13:05 Dose 1,000 mls @ ud .ROUTE .STK-MED ONE Ondansetron HCl 4 mg 02/03/22 10:39 02/03/22 11:24 Ondansetron Hcl 4 Mg/2 Ml Vial IV 02/03/22 10:40 4 mg STAT ONE Administration Ondansetron HCl Confirm 02/03/22 11:22 Ondansetron Hcl 4 Mg/2 Ml Vial Administered 02/03/22 11:23 Dose 4 mg .ROUTE .STK-MED ONE Prochlorperazine Edisylate 5 mg 02/03/22 12:23 02/03/22 12:24 Prochlorperazine Edisylate 10 Mg/2 Ml Vial IV 02/03/22 12:24 5 mg STAT ONE Administration Prochlorperazine Edisylate Confirm 02/03/22 12:23 Prochlorperazine Edisylate 10 Mg/2 Ml Vial Administered 02/03/22 12:24 Dose 10 mg .ROUTE .STK-MED ONE Lab/Rad Data: Laboratory Result Diagrams 02/03/22 11:20 02/03/22 11:25 Laboratory Results 02/03/22 02/03/22 02/03/22 Range/Units 11:31 11:31 11:25 WBC (4.0-10.5) x10^3/uL RBC (4.1-5.4) x10^6/uL Hgb (12.0-16.0) g/dL Hct (35-47) % MCV (78-100) fL MCH (26-32) pg MCHC (32-36) g/dL RDW (11.5-14.0) % Plt Count (150-450) x10^3/uL MPV (7.5-11.0) fL Gran % (36.0-66.0) % Immature Gran % (Auto) (0.00-0.4) % Nucleat RBC Rel Count (0.00-0.1) % Eos # (Auto) (0-0.5) x10^3/uL Immature Gran # (Auto) (0.00-0.03) x10^3u/L Absolute Lymphs (auto) (1.0-4.6) x10^3/uL Absolute Monos (auto) (0.0-1.3) x10^3/uL Absolute Nucleated RBC (0.00-0.01) x10^3u/L Lymphocytes % (24.0-44.0) % Monocytes % (0.0-12.0) % Eosinophils % (0.00-5.0) % Basophils % (0.0-0.4) % Absolute Granulocytes (1.4-6.9) x10^3/uL Basophils # (0-0.4) x10^3/uL D-Dimer 0.27 (0.0-0.50) mg/L Sodium (137-145) mmol/L Potassium (3.5-5.1) mmol/L Chloride (98-107) mmol/L Carbon Dioxide (22-30) mmol/L Anion Gap (5-15) MEQ/L BUN (7-17) mg/dL Creatinine (0.52-1.04) mg/dL Estimated GFR ML/MIN Glucose (74-106) mg/dL Calcium (8.4-10.2) mg/dL Total Bilirubin (0.2-1.3) mg/dL AST (14-36) U/L ALT (0-35) U/L Alkaline Phosphatase (38-126) U/L Troponin I < 0.012 (0.000-0.034) ng/mL Serum Total Protein (6.3-8.2) g/dL Albumin (3.5-5.0) g/dL Urinalys Dipstick Clnc Urine Color (YELLOW) Urine Appearance (CLEAR) Urine pH (5-6) Ur Specific Baker (1.005-1.025) POC Urine Protein Conf (Negative) Urine Ketones (NEGATIVE) Urine Nitrite (NEGATIVE) Urine Bilirubin (NEGATIVE) Urine Urobilinogen (0-1) mg/dL Urine Leukocytes (NEGATIVE) Urine WBC (Auto) (0-5) /HPF Urine RBC (Auto) (0-2) /HPF U Hyaline Cast (Auto) (0-2) /LPF U Epithel Cells (Auto) (FEW) /HPF Urine Bacteria (Auto) (NEGATIVE) /HPF Urine RBC (0-5) Clement/ul Urine Mucus (Auto) (NEGATIVE) /HPF Ur Culture Indicated? Urine Glucose (NEGATIVE) mg/dL Salicylates (2-20) mg/dL Urine Opiates Level (NEGATIVE) Ur Methadone (NEGATIVE) Acetaminophen (10-30) ug/ml Urine Barbiturates (NEGATIVE) Ur Phencyclidine (PCP) (NEGATIVE) Urine Amphetamine (NEGATIVE) U Benzodiazepine Level (NEGATIVE) Urine Marijuana (THC) (NEGATIVE) Ethyl Alcohol (0-10) mg/dL Monoscreen (Negative) Influenza Type A Ag NEGATIVE (NEGATIVE) Influenza Type B Ag NEGATIVE (NEGATIVE) RSV (PCR) NEGATIVE (Negative) SARS-CoV-2 (PCR) NEGATIVE (NEGATIVE) 02/03/22 02/03/2202/03/22 Range/Units 11:25 11:20 11:20 WBC 11.0 H (4.0-10.5) x10^3/uL RBC 4.13 (4.1-5.4) x10^6/uL Hgb 14.2 (12.0-16.0) g/dL Hct 41.7 (35-47) % MCV 101.0 H (78-100) fL MCH 34.4 H (26-32) pg MCHC 34.1 (32-36) g/dL RDW 12.1 (11.5-14.0) % Plt Count 239 (150-450) x10^3/uL MPV 10.5 (7.5-11.0) fL Gran % 84.5 H (36.0-66.0) % Immature Gran % (Auto) 0.5 H (0.00-0.4) % Nucleat RBC Rel Count 0.0 (0.00-0.1) % Eos # (Auto) 0.02 (0-0.5) x10^3/uL Immature Gran # (Auto) 0.06 H (0.00-0.03) x10^3u/L Absolute Lymphs (auto) 1.11 (1.0-4.6) x10^3/uL Absolute Monos (auto) 0.49 (0.0-1.3) x10^3/uL Absolute Nucleated RBC 0.00 (0.00-0.01) x10^3u/L Lymphocytes % 10.1 L (24.0-44.0) % Monocytes % 4.5 (0.0-12.0) % Eosinophils % 0.2 (0.00-5.0) % Basophils % 0.2 (0.0-0.4) % Absolute Granulocytes 9.30 H (1.4-6.9) x10^3/uL Basophils # 0.02 (0-0.4) x10^3/uL D-Dimer (0.0-0.50) mg/L Sodium 139 (137-145) mmol/L Potassium 3.3 L (3.5-5.1) mmol/L Chloride 105 (98-107) mmol/L Carbon Dioxide 22 (22-30) mmol/L Anion Gap 15.0 (5-15) MEQ/L BUN 7 (7-17) mg/dL Creatinine 0.60 (0.52-1.04) mg/dL Estimated GFR > 60.0 ML/MIN Glucose 104 (74-106) mg/dL Calcium 9.2 (8.4-10.2) mg/dL Total Bilirubin 0.50 (0.2-1.3) mg/dL AST 20 (14-36) U/L ALT 20 (0-35) U/L Alkaline Phosphatase 75 (38-126) U/L Troponin I (0.000-0.034) ng/mL Serum Total Protein 6.9 (6.3-8.2) g/dL Albumin 4.4 (3.5-5.0) g/dL Urinalys Dipstick Clnc Urine Color (YELLOW) Urine Appearance (CLEAR) Urine pH (5-6) Ur Specific Baker (1.005-1.025) POC Urine Protein Conf (Negative) Urine Ketones (NEGATIVE) Urine Nitrite (NEGATIVE) Urine Bilirubin (NEGATIVE) Urine Urobilinogen (0-1) mg/dL Urine Leukocytes (NEGATIVE) Urine WBC (Auto) (0-5) /HPF Urine RBC (Auto) (0-2) /HPF U Hyaline Cast (Auto) (0-2) /LPF U Epithel Cells (Auto) (FEW) /HPF Urine Bacteria (Auto) (NEGATIVE) /HPF Urine RBC (0-5) Clement/ul Urine Mucus (Auto) (NEGATIVE) /HPF Ur Culture Indicated? Urine Glucose (NEGATIVE) mg/dL Salicylates < 1.0 L (2-20) mg/dL Urine Opiates Level (NEGATIVE) Ur Methadone (NEGATIVE) Acetaminophen < 10 L (10-30) ug/ml Urine Barbiturates (NEGATIVE) Ur Phencyclidine (PCP) (NEGATIVE) Urine Amphetamine (NEGATIVE) U Benzodiazepine Level (NEGATIVE) Urine Marijuana (THC) (NEGATIVE) Ethyl Alcohol < 10 (0-10) mg/dL Monoscreen NEGATIVE (Negative) Influenza Type A Ag (NEGATIVE) Influenza Type B Ag (NEGATIVE) RSV (PCR) (Negative) SARS-CoV-2 (PCR) (NEGATIVE) 02/03/22 02/03/22 Range/Units 11:18 11:15 WBC (4.0-10.5) x10^3/uL RBC (4.1-5.4) x10^6/uL Hgb (12.0-16.0) g/dL Hct (35-47) % MCV (78-100) fL MCH (26-32) pg MCHC (32-36) g/dL RDW (11.5-14.0) % Plt Count (150-450) x10^3/uL MPV (7.5-11.0) fL Gran % (36.0-66.0) % Immature Gran % (Auto) (0.00-0.4) % Nucleat RBC Rel Count (0.00-0.1) % Eos # (Auto) (0-0.5) x10^3/uL Immature Gran # (Auto) (0.00-0.03) x10^3u/L Absolute Lymphs (auto) (1.0-4.6) x10^3/uL Absolute Monos (auto) (0.0-1.3) x10^3/uL Absolute Nucleated RBC (0.00-0.01) x10^3u/L Lymphocytes % (24.0-44.0) % Monocytes % (0.0-12.0) % Eosinophils % (0.00-5.0) % Basophils % (0.0-0.4) % Absolute Granulocytes (1.4-6.9) x10^3/uL Basophils # (0-0.4) x10^3/uL D-Dimer (0.0-0.50) mg/L Sodium (137-145) mmol/L Potassium (3.5-5.1) mmol/L Chloride (98-107) mmol/L Carbon Dioxide (22-30) mmol/L Anion Gap (5-15) MEQ/L BUN (7-17) mg/dL Creatinine (0.52-1.04) mg/dL Estimated GFR ML/MIN Glucose (74-106) mg/dL Calcium (8.4-10.2) mg/dL Total Bilirubin (0.2-1.3) mg/dL AST (14-36) U/L ALT (0-35) U/L Alkaline Phosphatase (38-126) U/L Troponin I (0.000-0.034) ng/mL Serum Total Protein (6.3-8.2) g/dL Albumin (3.5-5.0) g/dL Urinalys Dipstick Clnc MAIN LAB Urine Color YELLOW (YELLOW) Urine Appearance CLEAR (CLEAR) Urine pH 6.0 (5-6) Ur Specific Baker 1.020 (1.005-1.025) POC Urine Protein Conf TRACE (Negative) Urine Ketones LARGE-80 (NEGATIVE) Urine Nitrite NEGATIVE (NEGATIVE) Urine Bilirubin SMALL (NEGATIVE) Urine Urobilinogen 0.2 (0-1) mg/dL Urine Leukocytes SMALL (NEGATIVE) Urine WBC (Auto) 3-5 (0-5) /HPF Urine RBC (Auto) 0-2 (0-2) /HPF U Hyaline Cast (Auto) 11-25 (0-2) /LPF U Epithel Cells (Auto) FEW (FEW) /HPF Urine Bacteria (Auto) FEW (NEGATIVE) /HPF Urine RBC MODERATE (0-5) Clement/ul Urine Mucus (Auto) MANY (NEGATIVE) /HPF Ur Culture Indicated? YES Urine Glucose NEGATIVE (NEGATIVE) mg/dL Salicylates (2-20) mg/dL Urine Opiates Level NEGATIVE (NEGATIVE) Ur Methadone NEGATIVE (NEGATIVE) Acetaminophen (10-30) ug/ml Urine Barbiturates NEGATIVE (NEGATIVE) Ur Phencyclidine (PCP) NEGATIVE (NEGATIVE) Urine Amphetamine NEGATIVE (NEGATIVE) U Benzodiazepine Level POSITIVE (NEGATIVE) Urine Marijuana (THC) NEGATIVE (NEGATIVE) Ethyl Alcohol (0-10) mg/dL Monoscreen (Negative) Influenza Type A Ag (NEGATIVE) Influenza Type B Ag (NEGATIVE) RSV (PCR) (Negative) SARS-CoV-2 (PCR) (NEGATIVE) - Progress Progress: improved Counseled pt/family regarding: lab results, diagnosis, need for follow-up - Departure Departure Disposition: Home Clinical Impression: Urinary tract infection, Dehydration, Nausea vomiting and diarrhea Condition: Stable Critical Care Time: No Referrals: ARSALAN CEE [Primary Care Provider] - Follow up/PCP as directed Additional Instructions: Drink plenty of fluids. Call your primary prescribing provider today to make arrangements for prescribing your benzodiazepines. Take your antibiotics as prescribed. Prescriptions: Ciprofloxacin [Cipro 500 MG] 500 mg PO BID #14 tablet
[2022-02-03] MEDS ORDERED: VALIUM 10 MG/2 ML SYRINGE IV ONE (10:41)
[2022-02-03] MEDS ORDERED: Zofran 4 MG/2 ML VIAL ONE (11:22)
[2022-02-03] MEDS ORDERED: VALIUM 10 MG/2 ML SYRINGE ONE (11:22)
[2022-02-03] MEDS ORDERED: Sodium Chloride 0.9% 1000 ML 1,000 ML ONE ×2 (11:22→13:04)
[2022-02-03 11:32] LABS: Basophil (Absolute #) 0.02 x10^3/uL (0-0.4); Eosinophil % 0.2 % (0.00-5.0); Eosinophil (Absolute #) 0.02 x10^3/uL (0-0.5); Hematocrit 41.7 % (35-47); Hemoglobin 14.2 g/dL (12.0-16.0); Lymphocyte (Absolute #) 1.11 x10^3/uL (1.0-4.6); Lymphocytes % 10.1 % (24.0-44.0); Mean Corpuscular Hemoglobin 34.4 pg (26-32); Mean Corpuscular Hgb Concent. 34.1 g/dL (32-36); Mean Platelet Volume 10.5 fL (7.5-11.0); Monocyte (Absolute #) 0.49 x10^3/uL (0.0-1.3); Monocytes % 4.5 % (0.0-12.0); Neutrophil % 84.5 % (36.0-66.0); Platelet Count 239 x10^3/uL (150-450); Red Blood Count 4.13 x10^6/uL (4.1-5.4); Red Cell Distribution Width 12.1 % (11.5-14.0)
[2022-02-03 11:37] LABS: Appearance CLEAR (CLEAR); Bilirubin SMALL (NEGATIVE); Glucose NEGATIVE (NEGATIVE); Ketones LARGE-80 (NEGATIVE); Nitrite NEGATIVE (NEGATIVE); Protein,Urine Dip TRACE (Negative); RBC MODERATE Ery/ul (0-5); Urobilinogen 0.2 mg/dL (0-1)
[2022-02-03 11:38] LABS: Dipstick done @ ? MAIN LAB
[2022-02-03 11:41] LABS: ACETAMINOPHEN < 10 ug/ml (10-30); ALBUMIN 4.4 g/dL (3.5-5.0); ALKALINE PHOSPHATASE 75 U/L (38-126); BLOOD UREA NITROGEN 7 mg/dL (7-17); CHLORIDE 105 mmol/L (98-107); Calcium 9.2 mg/dL (8.4-10.2); Carbon Dioxide 22 mmol/L (22-30); EST GLOMERULAR FILTRATION RATE > 60.0 ML/MIN; ETHYL ALCOHOL < 10 mg/dL (0-10); Glucose 104 mg/dL (74-106); Potassium 3.3 mmol/L (3.5-5.1); SALICYLATE < 1.0 mg/dL (2-20); SGOT/AST 20 U/L (14-36); SGPT/ALT 20 U/L (0-35); SODIUM 139 mmol/L (137-145); Total Protein 6.9 g/dL (6.3-8.2)
[2022-02-03 11:42] LABS: Bacteria FEW /HPF (NEGATIVE); Epithelial Cells FEW /HPF (FEW); Mucus MANY /HPF (NEGATIVE); RBC 0-2 /HPF (0-2)
[2022-02-03 11:49] LABS: Urine Cultured Indicated? YES
[2022-02-03 11:54] LABS: Amphetamine,Urine NEGATIVE (NEGATIVE); Barbiturate,Urine NEGATIVE (NEGATIVE); Benzodiazepine,Urine POSITIVE (NEGATIVE); Methadone,Urine NEGATIVE (NEGATIVE); Opiate,Urine NEGATIVE (NEGATIVE); PCP,Urine NEGATIVE (NEGATIVE); THC,Urine NEGATIVE (NEGATIVE)
[2022-02-03 12:05] LABS: INFLUENZA A NEGATIVE (NEGATIVE); INFLUENZA B NEGATIVE (NEGATIVE); RESPIRATORY SYNCTIAL VIRUS NEGATIVE (Negative); SARS-CoV-2 Xpert Express NEGATIVE (NEGATIVE)
[2022-02-03] MEDS ORDERED: ROCEPHIN 1 Gm-D5w 50 ml Bag** 1 G/50 ML IVPB IV STA (12:05)
[2022-02-03] MEDS ORDERED: ROCEPHIN 1 Gm-D5w 50 ml Bag** 1 G/50 ML IVPB IV ONE (12:17)
[2022-02-03] MEDS ORDERED: Compazine 10 MG/2 ML IV ONE (12:23)
[2022-02-03] MEDS ORDERED: Compazine 10 MG/2 ML ONE (12:23)
[2022-02-03 13:18] VITALS: BP 105/76
[2022-02-03 14:07] VITALS: PULSE 70; O2SAT 97
== END 2022-02-03 14:21 | disposition home or self-care (01) ==
LOC: ED 10:11
DX: N39.0 Urinary tract infection, site not specified (principal); E86.0 Dehydration; R11.2 Nausea with vomiting, unspecified; R19.7 Diarrhea, unspecified; F41.9 Anxiety disorder, unspecified; R06.02 Shortness of breath; Z72.0 Tobacco use; Z79.899 Other long term (current) drug therapy; Z28.310 Unvaccinated for COVID-19
CPT/HCPCS: 0241U; 36000; 36415; 80053; 80307; 81015; 84484; 85025; 85379; 86308; 87040; 87086; 93041; 94760; 96374; 96375; 99284; G0480; J0696; J2405; J3360

== ENCOUNTER 2022-04-01 15:41 | Emergency (ER) | payer OTHER ==
[2022-04-01 15:55] VITALS: O2SAT 96
[2022-04-01] MEDS ORDERED: Sodium Chloride 0.9% 1000 ML 1,000 ML IV STA (16:08)
[2022-04-01] MEDS ORDERED: BENADRYL 50 MG/ML IV ONE (16:08)
[2022-04-01] MEDS ORDERED: Reglan 10 MG/2 ML IV ONE (16:08)
[2022-04-01] MEDS ORDERED: TORAdol 30 mg Injection IV ONE (16:08)
[2022-04-01] MEDS ORDERED: TYLENOL 325 MG PO ONE (16:08)
[2022-04-01] MEDS ORDERED: TORAdol 30 mg Injection ONE (16:17)
[2022-04-01] MEDS ORDERED: BENADRYL 50 MG/ML ONE (16:17)
--- NOTE | 2022-04-01 16:17 | ERPHSYRPT ---
- History of Present Illness Time Seen by Provider: 04/01/22 15:45 Source: patient Exam Limitations: no limitations Patient Subjective Stated Complaint: PT HERE FOR FEELING UNSTEADY, HEAD AND NECK FOR 3 DAYS, SHE WAS SEEN AT CLINIC AND DRS OFFICE TODAY, SHE WAD SENT HERE FOR A CT SCAN Triage Nursing Assessment: PT ALERT, ORIENTED, RESP EASY, FACE MASK IN PLACE, SKIN W/D/P. ABD SOFT Physician History: 37 years old female with history of TBI, chronic pain, issues with balance at her baseline, poorly controlled migraines presented in the ER with chief complaint of headache for almost 1 week. Patient was seen outpatient at [facility] and later on in ER at [place] where she was given symptomatic treatment and still having headache more on the right side with weakness fatigue and tiredness all over. Patient has been taking her routine medication for headache with no significant relief. Denies any focal weakness but weakness all over. She has unsteady gait at her baseline which is getting a little bit more worse than usual. She is sent in here from primary care office for CT head and treatment of headache. Denies any fall or trauma. Timing/Duration: week(s) (1), gradual onset, worse Quality: sharpness Head Pain Location: frontal, parietal Severity of Pain-Max: severe Severity of Pain-Current: moderate Recent Head Trauma: frequent headaches Modifying Factors: Worsens With: exposure to light Associated Symptoms: dizziness, fatigue, neck pain, sensitive to light, No fever/chills, No loss of consciousness, No nausea/vomiting, No nasal drainage, No numbness in legs/feet, No sweating, No scotoma, No seizures, No sinus infection, No speech problems, No stiff neck, No vision changes, No visual disturbance Previous symptoms: same symptoms as today Allergies/Adverse Reactions: erythromycin base Allergy (Intermediate, Verified 04/01/22 15:55) Rash shellfish derived Allergy (Intermediate, Verified 04/01/22 15:55) Rash Home Medications: Diltiazem HCl 30 mg [Cardizem 30 MG] 60 mg PO TID 05/25/16 [History] Meclizine HCl 25 mg [Antivert 25 mg] 25 mg PO QID 04/25/20 [History] Tizanidine HCl 4 mg [Zanaflex 4 MG] 4 mg PO HS 09/05/20 [History] ALPRAZolam 1 MG [Xanax 1 mg] 1 ea PO TID 04/09/21 [History] Prazosin HCl [Minipress] 1 ea PO DAILY 04/09/21 [History] Sertraline HCl 50 mg [Zoloft 50 mg Tablet] 1 ea PO DAILY 04/09/21 [History] Atorvastatin Calcium 20 mg PO DAILY 01/26/22 [History] Hx Tetanus, Diphtheria Vaccination/Date Given: Yes Hx Influenza Vaccination/Date Given: No Hx Pneumococcal Vaccination/Date Given: No Immunizations Up to Date: Yes Travel Risk - International Travel Have you traveled outside of the country in past 3 weeks: No - Coronavirus Screening Are you exhibiting any of the following symptoms?: No Close contact with a COVID-19 positive Pt in past 14-21 Days: No - Vaccine Status Have you recieved a Covid-19 vaccination: No - Review of Systems Constitutional: Fatigue, Weakness Eyes: No Symptoms Ears, Nose, & Throat: No Symptoms Respiratory: No Symptoms Cardiac: No Symptoms Abdominal/Gastrointestinal: No Symptoms Genitourinary Symptoms: No Symptoms Musculoskeletal: Myalgias Skin: No Symptoms Neurological: Dizziness, Headache Psychological: Anxiety, Depression Endocrine: No Symptoms Hematologic/Lymphatic: No Symptoms Immunological/Allergic: No Symptoms - Past Medical History Pertinent Past Medical History: Yes Neurological History: Other ENT History: No Pertinent History Cardiac History: Other Respiratory History: No Pertinent History Endocrine Medical History: No Pertinent History Musculoskeletal History: Degenerative Disk Disease, Fractures GI Medical History: Ulcer, GERD History: No Pertinent History Psycho-Social History: Anxiety, Depression Female Reproductive Disorders: Abnormal Uterine Bleeding Other Medical History: TBI, PTSD, ESOPHAGEAL AND HEART SPASMS. HX OF FRACTURES IN RIGHT SHOULDER "NEVER HEALED CORRECTLY WITH NERVE DAMAGE" - NO SURGERY. ARTHROSCOPY X 2 LEFT KNEE DUE TO MENISCAL ISSUES WITH MOST RECENT 1 YEAR AGO - Past Surgical History Past Surgical History: Yes Neuro Surgical History: No Pertinent History Cardiac: No Pertinent History Respiratory: No Pertinent History Gastrointestinal: Cholecystectomy Genitourinary: No Pertinent History Musculoskeletal: Orthopedic Surgery Female Surgical History: Tubal Ligation, Dilation & Curettage Other Surgical History: left knee meniscus repair,left wrist cyst,Lap emily, colonoscopy and EGD - Social History Smoking Status: Current every day smoker How long have you smoked: 19 years Exposure to second hand smoke: Yes Drug Use: none Patient Lives Alone: No Significant Family History: no pertinent family hx - Female History Hx Last Menstrual Period: NONE Hx Now: No - Nursing Vital Signs Nursing Vital Signs: Initial Vital Signs Temperature 98.0 F 04/01/22 15:50 Pulse Rate 98 H 04/01/22 15:50 Respiratory Rate 16 04/01/22 15:50 Blood Pressure 114/77 04/01/22 15:50 O2 Sat by Pulse Oximetry 96 04/01/22 15:50 Pain Scale Pain Intensity 9 - Physical Exam General Appearance: no apparent distress, alert Eye Exam: eyes nml inspection, No scleral icterus, No pale conjunctivae Ears, Nose, Throat Exam: normal ENT inspection, TMs normal, pharynx normal, moist mucous membranes Neck Exam: normal inspection, non-tender, supple, full range of motion Respiratory Exam: normal breath sounds, lungs clear Cardiovascular Exam: regular rate/rhythm, normal heart sounds Gastrointestinal/Abdominal Exam: soft Back Exam: normal inspection, normal range of motion Extremity Exam: normal inspection, normal range of motion Mental Status Exam: alert, 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, 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 Exam: normal hearing, normal speech, No PERRL (Pupils bilateral equal but sluggish in response, chronic finding), No facial asymmetry, No facial droop Coordination/Gait Exam: normal finger to nose, normal cerebellar function Motor/Sensory Exam: no motor deficit, no sensory deficit, no pronator drift, negative Babinski's sign DTR Exam: bicep (R): 2+, bicep (L): 2+, knee (R): 2+, knee (L): 2+ Skin Exam: normal color SpO2 Interpretation: normal SpO2: 96 O2 Delivery: Room Air - Course EKG Interpreted by Me: RATE (90), Sinus Rhythm, NORMAL AXIS, Q-wave, Non- specific ST Changes Ordered Tests: Active Orders 24 hr Category Date Time Status Harness Brusher STAT Care 04/01/22 16:08 Active IV Insertion STAT Care 04/01/22 16:08 Active NPO (ED) STAT Care 04/01/22 16:07 Active POCT Glucose Check STAT Care 04/01/22 16:25 Active HEAD WITHOUT CONTRAST [CT] Stat Exams 04/01/22 16:07 Completed CBC W DIFF Stat Lab 04/01/22 16:21 Completed CMP Stat Lab 04/01/22 16:21 Completed POCT GLUCOSE Stat Lab 04/01/22 15:55 Completed UA W/RFX CULTURE Stat Lab 04/01/22 16:26 Completed Medication Summary Discontinued Medications Generic Name Dose Route Start Last Admin Trade Name Rhea PRN Reason Stop Dose Admin Acetaminophen 975 mg 04/01/22 16:08 04/01/22 16:19 Acetaminophen 325 Mg Tablet PO 04/01/22 16:09 975 mg STAT ONE Administration Acetaminophen Confirm 04/01/22 16:18 Acetaminophen 325 Mg Tablet Administered 04/01/22 16:19 Dose 975 mg .ROUTE .STK-MED ONE Diphenhydramine HCl 25 mg 04/01/22 16:08 04/01/22 16:19 Diphenhydramine Hcl 50 Mg/Ml Vial IV 04/01/22 16:09 25 mg STAT ONE Administration Diphenhydramine HCl Confirm 04/01/22 16:17 Diphenhydramine Hcl 50 Mg/Ml Vial Administered 04/01/22 16:18 Dose 50 mg .ROUTE .STK-MED ONE Sodium Chloride 1,000 mls @ 999 mls/hr 04/01/22 16:08 04/01/22 17:19 Sodium Chloride 0.9% 1000 Ml IV 04/01/22 17:08 Infused .Q1H1M STA Infusion Sodium Chloride Confirm 04/01/22 16:18 Sodium Chloride 0.9% 1000 Ml Administered 04/01/22 16:19 Dose 1,000 mls @ ud .ROUTE .STK-MED ONE Ketorolac Tromethamine 30 mg 04/01/22 16:08 04/01/22 16:19 Ketorolac Tromethamine 30 Mg/Ml Inj IV 04/01/22 16:09 30 mg STAT ONE Administration Ketorolac Tromethamine Confirm 04/01/22 16:17 Ketorolac Tromethamine 30 Mg/Ml Inj Administered 04/01/22 16:18 Dose 30 mg .ROUTE .STK-MED ONE Metoclopramide HCl 10 mg 04/01/22 16:08 04/01/22 16:19 Metoclopramide Hcl 10 Mg/2 Ml Vial IV 04/01/22 16:09 10 mg STAT ONE Administration Metoclopramide HCl Confirm 04/01/22 16:18 Metoclopramide Hcl 10 Mg/2 Ml Vial Administered 04/01/22 16:19 Dose 10 mg .ROUTE .STK-MED ONE Lab/Rad Data: Laboratory Result Diagrams 04/01/22 16:21 04/01/22 16:21 Laboratory Results 04/01/22 04/01/22 04/01/22 Range/Units 16:26 16:21 16:21 WBC 12.5 H (4.0-10.5) x10^3/uL RBC 4.38 (4.1-5.4) x10^6/uL Hgb 14.7 (12.0-16.0) g/dL Hct 43.9 (35-47) % MCV 100.2 H (78-100) fL MCH 33.6 H (26-32) pg MCHC 33.5 (32-36) g/dL RDW 12.5 (11.5-14.0) % Plt Count 264 (150-450) x10^3/uL MPV 10.8 (7.5-11.0) fL Gran % 73.2 H (36.0-66.0) % Immature Gran % (Auto) 0.4 (0.00-0.4) % Nucleat RBC Rel Count 0.0 (0.00-0.1) % Eos # (Auto) 0.15 (0-0.5) x10^3/uL Immature Gran # (Auto) 0.05 H (0.00-0.03) x10^3u/L Absolute Lymphs (auto) 2.49 (1.0-4.6) x10^3/uL Absolute Monos (auto) 0.63 (0.0-1.3) x10^3/uL Absolute Nucleated RBC 0.00 (0.00-0.01) x10^3u/L Lymphocytes % 19.9 L (24.0-44.0) % Monocytes % 5.0 (0.0-12.0) % Eosinophils % 1.2 (0.00-5.0) % Basophils % 0.3 (0.0-0.4) % Absolute Granulocytes 9.15 H (1.4-6.9) x10^3/uL Basophils # 0.04 (0-0.4) x10^3/uL Sodium 137 (137-145) mmol/L Potassium 3.6 (3.5-5.1) mmol/L Chloride 104 (98-107) mmol/L Carbon Dioxide 24 (22-30) mmol/L Anion Gap 12.4 (5-15) MEQ/L BUN 16 (7-17) mg/dL Creatinine 0.65 (0.52-1.04) mg/dL Estimated GFR > 60.0 ML/MIN Glucose 106 (74-106) mg/dL POC Glucometer (74 to 106) mg/dL Calcium 9.5 (8.4-10.2) mg/dL Total Bilirubin 0.60 (0.2-1.3) mg/dL AST 21 (14-36) U/L ALT 18 (0-35) U/L Alkaline Phosphatase 83 (38-126) U/L Serum Total Protein 7.5 (6.3-8.2) g/dL Albumin 4.7 (3.5-5.0) g/dL Urinalys Dipstick Clnc MAIN LAB Urine Color YELLOW (YELLOW) Urine Appearance SLIGHTLY CLOUDY (CLEAR) Urine pH 5.5 (5-6) Ur Specific [place] >=1.030 (1.005-1.025) POC Urine Protein Conf TRACE (Negative) Urine Ketones SMALL-15 (NEGATIVE) Urine Nitrite NEGATIVE (NEGATIVE) Urine Bilirubin SMALL (NEGATIVE) Urine Urobilinogen 0.2 (0-1) mg/dL Urine Leukocytes NEGATIVE (NEGATIVE) Urine WBC (Auto) 3-5 (0-5) /HPF Urine RBC (Auto) NONE (0-2) /HPF U Epithel Cells (Auto) FEW (FEW) /HPF Urine Bacteria (Auto) RARE (NEGATIVE) /HPF Urine RBC NEGATIVE (0-5) Clement/ul Urine Mucus (Auto) MANY (NEGATIVE) /HPF Ur Culture Indicated? NO Urine Glucose NEGATIVE (NEGATIVE) mg/dL 04/01/22 Range/Units 15:55 WBC (4.0-10.5) x10^3/uL RBC (4.1-5.4) x10^6/uL Hgb (12.0-16.0) g/dL Hct (35-47) % MCV (78-100) fL MCH (26-32) pg MCHC (32-36) g/dL RDW (11.5-14.0) % Plt Count (150-450) x10^3/uL MPV (7.5-11.0) fL Gran % (36.0-66.0) % Immature Gran % (Auto) (0.00-0.4) % Nucleat RBC Rel Count (0.00-0.1) % Eos # (Auto) (0-0.5) x10^3/uL Immature Gran # (Auto) (0.00-0.03) x10^3u/L Absolute Lymphs (auto) (1.0-4.6) x10^3/uL Absolute Monos (auto) (0.0-1.3) x10^3/uL Absolute Nucleated RBC (0.00-0.01) x10^3u/L Lymphocytes % (24.0-44.0) % Monocytes % (0.0-12.0) % Eosinophils % (0.00-5.0) % Basophils % (0.0-0.4) % Absolute Granulocytes (1.4-6.9) x10^3/uL Basophils # (0-0.4) x10^3/uL Sodium (137-145) mmol/L Potassium (3.5-5.1) mmol/L Chloride (98-107) mmol/L Carbon Dioxide (22-30) mmol/L Anion Gap (5-15) MEQ/L BUN (7-17) mg/dL Creatinine (0.52-1.04) mg/dL Estimated GFR ML/MIN Glucose (74-106) mg/dL POC Glucometer 114 H (74 to 106) mg/dL Calcium (8.4-10.2) mg/dL Total Bilirubin (0.2-1.3) mg/dL AST (14-36) U/L ALT (0-35) U/L Alkaline Phosphatase (38-126) U/L Serum Total Protein (6.3-8.2) g/dL Albumin (3.5-5.0) g/dL Urinalys Dipstick Clnc Urine Color (YELLOW) Urine Appearance (CLEAR) Urine pH (5-6) Ur Specific [place] (1.005-1.025) POC Urine Protein Conf (Negative) Urine Ketones (NEGATIVE) Urine Nitrite (NEGATIVE) Urine Bilirubin (NEGATIVE) Urine Urobilinogen (0-1) mg/dL Urine Leukocytes (NEGATIVE) Urine WBC (Auto) (0-5) /HPF Urine RBC (Auto) (0-2) /HPF U Epithel Cells (Auto) (FEW) /HPF Urine Bacteria (Auto) (NEGATIVE) /HPF Urine RBC (0-5) Clement/ul Urine Mucus (Auto) (NEGATIVE) /HPF Ur Culture Indicated? Urine Glucose (NEGATIVE) mg/dL - Progress Progress: improved Air Movement: good Progress Note: 04/01/22 18:05 37 years old is evaluated for headache. She has essentially nonfocal neuro exam but what she has from her baseline TBI with issues with balance, dizziness. Because of her headache from more than a week and not like her routine headache, CT head is obtained which is negative for any acute findings. She is given fluids and migraine cocktail, on reevaluation she is sleeping comfortably, arousable and reports improvement in her headache. Baseline work-up showed white count of 11 grossly unremarkable chemistries. Recommended outpatient neurology follow-up for reevaluation and to be placed on some prophylactic antimigraine medication. Do not think she needs any other work-up and is stable for discharge with outpatient follow-up. Discussed signs symptoms of worsening needing return to ER which she seems understanding. Blood Culture(s) Obtained: No Antibiotics given: No Counseled pt/family regarding: lab results, diagnosis, need for follow-up, rad results - Departure Departure Disposition: Home Clinical Impression: Migraine Qualifiers: Migraine type: without aura Status migrainosus presence: without status migrainosus Intractability: not intractable Qualified Code(s): G43.009 - Migraine without aura, not intractable, without status migrainosus Condition: Stable Critical Care Time: No Referrals: ARSALAN LONG [Primary Care Provider] - Follow up/PCP as directed (1-2 days for reevaluation) DOMINIC BUSH DO [NON-STAFF PHY W/O PRIVILEGES] - Follow up/PCP as directed (Call for appointment for reevaluation) Instructions: Headache, Adult (DC) Additional Instructions: Take Tylenol/ibuprofen as needed for headache. Follow-up with your primary care and neurology for reevaluation. Return to ER for intractable headache, new focal numbness tingling weakness or blurry vision/difficulty speech etc.
[2022-04-01] MEDS ORDERED: Sodium Chloride 0.9% 1000 ML 1,000 ML ONE (16:18)
[2022-04-01] MEDS ORDERED: Reglan 10 MG/2 ML ONE (16:18)
[2022-04-01] MEDS ORDERED: TYLENOL 325 MG ONE (16:18)
[2022-04-01 16:23] LABS: Absolute Neutrophil Ct (ANC) 9.15 x10^3/uL (1.4-6.9); Basophil (Absolute #) 0.04 x10^3/uL (0-0.4); Eosinophil % 1.2 % (0.00-5.0); Eosinophil (Absolute #) 0.15 x10^3/uL (0-0.5); Hematocrit 43.9 % (35-47); Hemoglobin 14.7 g/dL (12.0-16.0); Lymphocyte (Absolute #) 2.49 x10^3/uL (1.0-4.6); Lymphocytes % 19.9 % (24.0-44.0); Mean Cell Volume 100.2 fL (78-100); Mean Corpuscular Hemoglobin 33.6 pg (26-32); Mean Corpuscular Hgb Concent. 33.5 g/dL (32-36); Mean Platelet Volume 10.8 fL (7.5-11.0); Monocyte (Absolute #) 0.63 x10^3/uL (0.0-1.3); Neutrophil % 73.2 % (36.0-66.0); Platelet Count 264 x10^3/uL (150-450); Red Blood Count 4.38 x10^6/uL (4.1-5.4); Red Cell Distribution Width 12.5 % (11.5-14.0); White Blood Count 12.5 x10^3/uL (4.0-10.5)
[2022-04-01 16:36] LABS: ALBUMIN 4.7 g/dL (3.5-5.0); ALKALINE PHOSPHATASE 83 U/L (38-126); ANION GAP 12.4 MEQ/L (5-15); BLOOD UREA NITROGEN 16 mg/dL (7-17); CHLORIDE 104 mmol/L (98-107); Calcium 9.5 mg/dL (8.4-10.2); Carbon Dioxide 24 mmol/L (22-30); Creatinine 1 0.65 mg/dL (0.52-1.04); EST GLOMERULAR FILTRATION RATE > 60.0 ML/MIN; Glucose 106 mg/dL (74-106); Potassium 3.6 mmol/L (3.5-5.1); SGOT/AST 21 U/L (14-36); SGPT/ALT 18 U/L (0-35); SODIUM 137 mmol/L (137-145); Total Protein 7.5 g/dL (6.3-8.2)
[2022-04-01 17:05] LABS: Appearance SLIGHTLY CLOUDY (CLEAR); Bilirubin SMALL (NEGATIVE); Glucose NEGATIVE (NEGATIVE); Ketones SMALL-15 (NEGATIVE); RBC NEGATIVE Ery/ul (0-5); Specific Gravity >=1.030 (1.005-1.025)
[2022-04-01 17:06] LABS: Dipstick done @ ? MAIN LAB; Nitrite NEGATIVE (NEGATIVE); Ph 5.5 (5-6); Protein,Urine Dip TRACE (Negative); Urobilinogen 0.2 mg/dL (0-1)
[2022-04-01 17:12] LABS: Bacteria RARE /HPF (NEGATIVE); Epithelial Cells FEW /HPF (FEW); Mucus MANY /HPF (NEGATIVE)
--- NOTE | 2022-04-01 17:16 | XRAY ---
Exam: CT of the head without IV contrast from 04/01/2022. CTDI: 53.92 mGy Comparison: CT of the head without IV contrast from 12/25/2021. Indication: Headache and dizziness for 2 weeks. Technique: Non-IV contrast axial images were obtained through the brain. Reconstructed coronal and sagittal images were created and reviewed. Findings: I again see a normal variant cavum septum pellucidum between the lateral ventricles representing no change from 12/25/2021. Otherwise, the ventricles appear unremarkable without evidence of hydrocephalus. No focal mass effect or midline shift is seen. No acute intracranial bleed or abnormal extra-axial fluid collection is seen. The orell[place] matter-white matter interfaces appear unremarkable. Structures of the posterior fossa appear unremarkable. No focal low-attenuation lesions are seen to suggest an infarct or focal edema. The cortical sulci and basilar cisterns appear unremarkable. The calvarium of the skull appears intact without fracture or other bony lesion. The visualized paranasal sinuses are clear. No air-fluid levels are seen. The mastoid air cells are clear without effusion. The middle ear cavities appear grossly unremarkable. The orbits appear grossly unremarkable. Impression: 1. No acute intracranial bleed or other acute intracranial process is seen. This is unchanged from 12/25/2021. 2. I again see a normal variant cavum septum pellucidum between the lateral ventricles representing no change.
[2022-04-01 17:24] LABS: Urine Cultured Indicated? NO
[2022-04-01 18:10] VITALS: BP 98/70; PULSE 60
== END 2022-04-01 18:13 | disposition home or self-care (01) ==
LOC: ED 15:41
DX: G43.009 Migraine without aura, not intractable, without status migrainosus (principal); R53.83 Other fatigue; R53.1 Weakness; Z72.0 Tobacco use; Z79.899 Other long term (current) drug therapy; Z28.310 Unvaccinated for COVID-19
CPT/HCPCS: 36000; 36415; 70450; 80053; 81015; 82947; 85025; 93041; 96374; 96375; 99284; J1200; J1885; A9270-GY

== ENCOUNTER 2022-06-04 13:49 | Emergency (ER) | payer OTHER ==
--- NOTE | 2022-06-04 13:53 | ERPHSYRPT ---
- History of Present Illness Time Seen by Provider: 06/04/22 13:53 Source: patient Exam Limitations: no limitations Physician History: This is a 37-year-old right-handed white female patient of Dr. Cee who lost her balance when attempting to fern picker her cat and fell onto her left outstretched hand. She presents with bruising to the dorsal aspect of her left hand. There is swelling present there as well. The patient states that she also has very mild left shoulder pain and pain on her krause where she fell. However, she is mostly concerned about her left hand. Patient has a history of hypertension, hyperlipidemia, degenerative disc disease, PTSD and is a daily smoker of cigarettes. Occurred: just prior to arrival Method of Injury: fell Quality: constant, aching Extremities Pain Location: hand: left (Dorsal aspect with bruising and swelling) Modifying Factors: Improves With: movement Associated Symptoms: none Allergies/Adverse Reactions: erythromycin base Allergy (Intermediate, Verified 06/04/22 14:02) Rash shellfish derived Allergy (Intermediate, Verified 06/04/22 14:02) Rash Home Medications: Diltiazem HCl 30 mg [Cardizem 30 MG] 60 mg PO TID 05/25/16 [History] Meclizine HCl 25 mg [Antivert 25 mg] 25 mg PO QID 04/25/20 [History] Tizanidine HCl 4 mg [Zanaflex 4 MG] 4 mg PO HS 09/05/20 [History] ALPRAZolam 1 MG [Xanax 1 mg] 1 ea PO TID 04/09/21 [History] Prazosin HCl [Minipress] 1 ea PO DAILY 04/09/21 [History] Sertraline HCl 50 mg [Zoloft 50 mg Tablet] 1 ea PO DAILY 04/09/21 [History] Atorvastatin Calcium 20 mg PO DAILY 01/26/22 [History] Hx Tetanus, Diphtheria Vaccination/Date Given: Yes Hx Influenza Vaccination/Date Given: No Hx Pneumococcal Vaccination/Date Given: No Travel Risk - International Travel Have you traveled outside of the country in past 3 weeks: No - Coronavirus Screening Are you exhibiting any of the following symptoms?: No Close contact with a COVID-19 positive Pt in past 14-21 Days: No - Vaccine Status Have you recieved a Covid-19 vaccination: No - Review of Systems Constitutional: No Symptoms Eyes: No Symptoms Ears, Nose, & Throat: No Symptoms Respiratory: No Symptoms Cardiac: No Symptoms Abdominal/Gastrointestinal: No Symptoms Genitourinary Symptoms: No Symptoms Musculoskeletal: Fall, Injury (Left hand dorsal aspect with bruising and swelling) Skin: No Symptoms Neurological: No Symptoms Psychological: No Symptoms Endocrine: No Symptoms Hematologic/Lymphatic: No Symptoms Immunological/Allergic: No Symptoms All Other Systems: Reviewed and Negative - Past Medical History Pertinent Past Medical History: Yes Neurological History: Other ENT History: No Pertinent History Cardiac History: Other Respiratory History: No Pertinent History Endocrine Medical History: No Pertinent History Musculoskeletal History: Degenerative Disk Disease, Fractures GI Medical History: Ulcer, GERD History: No Pertinent History Psycho-Social History: Anxiety, Depression Female Reproductive Disorders: Abnormal Uterine Bleeding Other Medical History: TBI, PTSD, ESOPHAGEAL AND HEART SPASMS. HX OF FRACTURES IN RIGHT SHOULDER "NEVER HEALED CORRECTLY WITH NERVE DAMAGE" - NO SURGERY. ARTHROSCOPY X 2 LEFT KNEE DUE TO MENISCAL ISSUES WITH MOST RECENT 1 YEAR AGO - Past Surgical History Past Surgical History: Yes Neuro Surgical History: No Pertinent History Cardiac: No Pertinent History Respiratory: No Pertinent History Gastrointestinal: Cholecystectomy Genitourinary: No Pertinent History Musculoskeletal: Orthopedic Surgery Female Surgical History: Tubal Ligation, Dilation & Curettage Other Surgical History: left knee meniscus repair,left wrist cyst,Lap emily, colonoscopy and EGD - Social History Smoking Status: Current every day smoker How long have you smoked: 19 years Exposure to second hand smoke: Yes Drug Use: none Patient Lives Alone: No Significant Family History: no pertinent family hx - Nursing Vital Signs Nursing Vital Signs: Initial Vital Signs Temperature 97.6 F 06/04/22 13:54 Pulse Rate 66 06/04/22 13:54 Respiratory Rate 18 06/04/22 13:54 Blood Pressure 115/71 06/04/22 13:54 O2 Sat by Pulse Oximetry 97 06/04/22 13:54 Pain Scale Pain Intensity 7 - Physical Exam General Appearance: no apparent distress, alert, anxiety Eyes, Ears, Nose, Throat Exam: normal ENT inspection, moist mucous membranes Neck Exam: normal inspection, non-tender, supple, full range of motion Cardiovascular/Respiratory Exam: chest non-tender, no respiratory distress Abdominal Exam: non-tender Back Exam: normal inspection, normal range of motion, No CVA tenderness Shoulder Exam: normal inspection, non-tender, no evidence of injury, normal ROM Elbow/Forearm Exam: normal inspection, non-tender, no evidence of injury, normal ROM Wrist Exam: normal inspection, non-tender, no evidence of injury, normal ROM Hand Exam: normal ROM, ecchymosis (Left hand dorsal aspect), soft tissue tenderness (Left hand dorsal aspect), swelling (Left hand dorsal aspect) Neuro/Tendon Exam: normal sensation, normal motor functions, normal tendon functions, responds to pain, no evidence tendon injury Mental Status Exam: alert, 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, cooperative Skin Exam: ecchymosis (Ecchymosis as above) SpO2 Interpretation: normal O2 Delivery: Room Air - Course Nursing assessment & vital signs reviewed: Yes Ordered Tests: Active Orders 24 hr Category Date Time Status HAND (MINIMUM 3 VIEWS) Stat Exams 06/04/22 14:06 Taken - Progress Progress: unchanged, pain not gone completely Progress Note: 06/04/22 14:26 X-ray left hand shows soft tissue swelling dorsal aspect. No acute fracture or dislocation appreciated. Counseled pt/family regarding: diagnosis, need for follow-up, rad results - Departure Departure Disposition: Home Clinical Impression: Contusion of left hand Condition: Stable Critical Care Time: No Referrals: ARSALAN CEE [Primary Care Provider] - Follow up/PCP as directed Additional Instructions: Ice pack/bath 2-3 times a day for the next 48 hours. Take your medication as prescribed. Follow-up with [facility] orthopedic clinic if symptoms persist beyond 72 hours. Prescriptions: Hydrocodone/APAP 5/325 [[place] 5/325 mg] 1 each PO Q12H PRN PRN #6 tablet MDD 2 PRN Reason: Pain
[2022-06-04 14:02] VITALS: BP 115/71; O2SAT 97
[2022-06-04 14:42] VITALS: PULSE 59
--- NOTE | 2022-06-04 15:11 | XRAY ---
Exam: 3 views of the left hand from 06/04/2022. Comparison: 3 views of the left hand from 04/09/2019. Indication: 37-year-old female fell injuring left hand; complains of pain and bruising near third MCP joint. Findings: AP, oblique, and lateral radiographs of the left hand were obtained. I see no acute fracture or dislocation of the left hand. There does appear to be moderate soft tissue swelling overlying the dorsal aspect of the distal metacarpal region on the lateral radiograph. No other bone or joint abnormality is seen. Impression: 1. I note moderate soft tissue swelling overlying the dorsal aspect of the distal metacarpal region of the left hand on the lateral radiograph. However, no underlying fracture or dislocation is seen.
== END 2022-06-04 14:42 | disposition home or self-care (01) ==
LOC: ED 13:49
DX: S60.222A Contusion of left hand, initial encounter (principal); W01.0XXA Fall on same level from slipping, tripping and stumbling without subsequent striking against object, initial encounter; M25.512 Pain in left shoulder; M79.662 Pain in left lower leg; I10 Essential (primary) hypertension; E78.5 Hyperlipidemia, unspecified; Z79.899 Other long term (current) drug therapy; Z28.310 Unvaccinated for COVID-19; Z72.0 Tobacco use; Z79.891 Long term (current) use of opiate analgesic
CPT/HCPCS: 73130; 99282

== ENCOUNTER 2022-10-27 10:21 | Day surgery (SDC) | payer OTHER ==
[2022-10-27] MEDS ORDERED: LIDOCAINE HCL 2% 100 MG/5 ML IJ ONE (10:22)
[2022-10-27 10:39] LABS: HCG URINE TEST NEGATIVE (NEGATIVE)
[2022-10-27] MEDS ORDERED: Versed 2 MG/2 ML Injection ONE (11:10)
[2022-10-27] MEDS ORDERED: DIPRIVAN 200 MG/20 ML IV ONE (11:46)
--- NOTE | 2022-10-27 12:28 | XRAY ---
Indication: Bilateral L4-S1 MBB. Intraoperative fluoroscopy provided for 12 seconds. Single digital spot image submitted for interpretation demonstrates posterior needle tip projecting over the left and right L4-S1 nerve roots. Correlate with intraoperative findings/report.
--- NOTE | 2022-10-27 12:54 | XRAY ---
12 seconds of fluoroscopy was used in surgery for a bilateral L4-L5 MBB.
[2022-10-27] MEDS ORDERED: Lactated Ringers 1,000 ML IV ONE (14:06)
== END 2022-10-27 12:20 | disposition home or self-care (01) ==
LOC: SDC-PAIN 10:21
PROVIDERS: ATTEND Psychiatry & Neurology Pain Medicine
DX: M47.816 Spondylosis without myelopathy or radiculopathy, lumbar region (principal); Z79.899 Other long term (current) drug therapy
CPT/HCPCS: 36415; 64493; 64494; 72020; 77002; 81025; J2250; J2704

== ENCOUNTER 2022-11-25 01:18 | Emergency (ER) | payer OTHER ==
[2022-11-25 01:30] VITALS: BP 121/83; O2SAT 97
--- NOTE | 2022-11-25 01:56 | ERPHSYRPT ---
- History of Present Illness Time Seen by Provider: 11/25/22 01:49 Source: patient Exam Limitations: no limitations Physician History: 37 years old female with history of anxiety, depression, TBI, chronic pain, migraines presented in the ER with chief complaint of green discharge from left nipple and worsening anxiety over 8/5 yesterday. Patient is very restless, denies any nipple/breast pain swelling/redness. Denies any recent . Patient reports she is recently out of her Xanax for the last couple of days did not could not sleep and needs help with that. Denies any suicidal or homicidal ideations. Timing/Duration: yesterday, gradual onset, worse Severity of Symptoms-Max: moderate Severity of Symptoms-Current: moderate Associated Symptoms: anxiety Allergies/Adverse Reactions: erythromycin base Allergy (Intermediate, Verified 11/25/22 01:26) Rash shellfish derived Allergy (Intermediate, Verified 11/25/22 01:26) Rash Home Medications: Diltiazem HCl 30 mg [Cardizem 30 MG] 60 mg PO TID 05/25/16 [History] Meclizine HCl 25 mg [Antivert 25 mg] 25 mg PO QID 04/25/20 [History] Tizanidine HCl 4 mg [Zanaflex 4 MG] 4 mg PO HS 09/05/20 [History] ALPRAZolam 1 MG [Xanax 1 mg] 1 ea PO TID 04/09/21 [History] Prazosin HCl [Minipress] 1 ea PO DAILY 04/09/21 [History] Sertraline HCl 50 mg [Zoloft 50 mg Tablet] 1 ea PO DAILY 04/09/21 [History] Atorvastatin Calcium 20 mg PO DAILY 01/26/22 [History] Hx Tetanus, Diphtheria Vaccination/Date Given: Yes Hx Influenza Vaccination/Date Given: No Hx Pneumococcal Vaccination/Date Given: No Travel Risk - Vaccine Status Have you recieved a Covid-19 vaccination: No - Past Medical History Pertinent Past Medical History: Yes Neurological History: Other ENT History: No Pertinent History Cardiac History: Other Respiratory History: No Pertinent History Endocrine Medical History: No Pertinent History Musculoskeletal History: Degenerative Disk Disease, Fractures GI Medical History: Ulcer, GERD History: No Pertinent History Psycho-Social History: Anxiety, Depression Female Reproductive Disorders: Abnormal Uterine Bleeding Other Medical History: TBI, PTSD, ESOPHAGEAL AND HEART SPASMS. HX OF FRACTURES IN RIGHT SHOULDER "NEVER HEALED CORRECTLY WITH NERVE DAMAGE" - NO SURGERY. ARTHROSCOPY X 2 LEFT KNEE DUE TO MENISCAL ISSUES WITH MOST RECENT 1 YEAR AGO - Past Surgical History Past Surgical History: Yes Neuro Surgical History: No Pertinent History Cardiac: No Pertinent History Respiratory: No Pertinent History Gastrointestinal: Cholecystectomy Genitourinary: No Pertinent History Musculoskeletal: Orthopedic Surgery Female Surgical History: Tubal Ligation, Dilation & Curettage Other Surgical History: left knee meniscus repair,left wrist cyst,Lap emily, colonoscopy and EGD, ablasion, breast biopsy - Social History Smoking Status: Current every day smoker How long have you smoked: 19 years Exposure to second hand smoke: Yes Drug Use: none Patient Lives Alone: No Significant Family History: no pertinent family hx - Review of Systems Constitutional: No Symptoms Eyes: No Symptoms Ears, Nose, & Throat: No Symptoms Respiratory: No Symptoms Cardiac: No Symptoms Abdominal/Gastrointestinal: No Symptoms Genitourinary Symptoms: No Symptoms Musculoskeletal: Arthralgias Skin: No Symptoms Neurological: No Symptoms Psychological: Anxiety, Depression Endocrine: No Symptoms Immunological/Allergic: No Symptoms - Nursing Vital Signs Nursing Vital Signs: Initial Vital Signs Temperature 98.3 F 11/25/22 01:28 Pulse Rate 61 11/25/22 01:28 Respiratory Rate 18 11/25/22 01:28 Blood Pressure 121/83 11/25/22 01:28 O2 Sat by Pulse Oximetry 97 11/25/22 01:28 Pain Scale Pain Intensity 2 - Physical Exam General Appearance: no apparent distress, alert, anxiety Eyes, Ears, Nose, Throat Exam: normal ENT inspection Neck Exam: normal inspection, full range of motion Respiratory Exam: normal breath sounds, lungs clear Cardiovascular Exam: regular rate/rhythm, normal heart sounds Extremities Exam: normal inspection, normal range of motion Current Suicidality: denies suicide plan Neurological Exam: alert, 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, 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 as tested, 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, No normal mood/affect Appearance: appropriate appearance, no memory impairment, No impaired recent memory Behavior/Eye Contact/Speech: alert & cooperative, cooperative, good eye contact, normal speech Thoughts/Hallucinations: normal thought pattern Skin Exam: normal color SpO2 Interpretation: normal SpO2: 97 O2 Delivery: Room Air - Progress Progress: unchanged Progress Note: 11/25/22 01:52 37 years old female with history of anxiety, depression, TBI, chronic pain, migraines presented in the ER with chief complaint of green discharge from left nipple and worsening anxiety over 8/5 yesterday. Patient is very restless, denies any nipple/breast pain swelling/redness. Denies any recent . Patient reports she is recently out of her Xanax for the last couple of days did not could not sleep and needs help with that. Denies any suicidal or homicidal ideations. I did not appreciate any discharge on exam from nipple. She does not have any abscess. No tenderness. Patient is very anxious, I agreed to give her 1 dose of Xanax in here in case if she has right to go back home per hospital policy. She cannot have someone to pick her up. She is not suicidal or homicidal. She is advised to follow-up with her primary care/pain management. Discussed signs symptoms of worsening needing return to ER which she seems understanding. Counseled pt/family regarding: diagnosis, need for follow-up, smoking cessation Medical Desision Making - Risk of complications Low Risk: Low risk of morbidity from additional dx testing or treatment The pt has a mod risk of morbidity or mortality based on: Need for prescription drug management - Departure Departure Disposition: Home Clinical Impression: Anxiety, Physically well but worried Condition: Stable Critical Care Time: No Referrals: DOCTOR,NO FAMILY [Primary Care Provider] - Follow up/PCP as directed Instructions: Generalized Anxiety Disorder Additional Instructions: Follow-up with your primary care and [facility] for reevaluation in the morning. Continue with your current medications. Return to ER for any worsening anxiety or if having any suicidal or homicidal ideations etc.
[2022-11-25 01:59] VITALS: PULSE 60
== END 2022-11-25 02:03 | disposition home or self-care (01) ==
LOC: ED 01:18
DX: F41.9 Anxiety disorder, unspecified (principal); N64.52 Nipple discharge; Z79.899 Other long term (current) drug therapy; Z28.310 Unvaccinated for COVID-19; Z72.0 Tobacco use
CPT/HCPCS: 99281

== ENCOUNTER 2023-01-02 19:03 | Emergency (ER) | payer OTHER ==
[2023-01-02 20:27] LABS: Absolute Neutrophil Ct (ANC) 7.02 x10^3/uL (1.4-6.9); BASOPHIL % 0.4 % (0.0-0.4); Basophil (Absolute #) 0.04 x10^3/uL (0-0.4); Eosinophil % 1.1 % (0.00-5.0); Eosinophil (Absolute #) 0.12 x10^3/uL (0-0.5); Hematocrit 38.6 % (35-47); Hemoglobin 12.5 g/dL (12.0-16.0); IMMATURE GRAN # 0.04 x10^3u/L (0.00-0.03); IMMATURE GRAN % 0.4 % (0.00-0.4); Lymphocyte (Absolute #) 2.86 x10^3/uL (1.0-4.6); Mean Cell Volume 103.5 fL (78-100); Mean Corpuscular Hemoglobin 33.5 pg (26-32); Mean Corpuscular Hgb Concent. 32.4 g/dL (32-36); Mean Platelet Volume 9.8 fL (7.5-11.0); Monocyte (Absolute #) 0.51 x10^3/uL (0.0-1.3); Monocytes % 4.8 % (0.0-12.0); Neutrophil % 66.3 % (36.0-66.0); Platelet Count 269 x10^3/uL (150-450); Red Blood Count 3.73 x10^6/uL (4.1-5.4); Red Cell Distribution Width 12.7 % (11.5-14.0); White Blood Count 10.6 x10^3/uL (4.0-10.5)
--- NOTE | 2023-01-02 20:27 | ERPHSYRPT ---
- History of Present Illness Time Seen by Provider: 01/02/23 19:45 Historian: patient Exam Limitations: no limitations Patient Subjective Stated Complaint: pt states she has swelling in both her feet and ankles for past 2-3 days. today and yesterday woke up with swelling in eyelids that resolved during the day. Triage Nursing Assessment: pt alert and oriented, answers questions approp. pt ambulates into room with steady gait noted. respriations nonlabored with lungs cta. skin warm and dry. trace edema to bilat feet and ankles. pedal pulses and cap refill wnl. Physician History: Patient is a 37-year-old female presents to our ED for evaluation of swelling of her feet and ankles x2 days. Patient complains of nonspecific substernal this discomfort. No associated nausea vomiting or diaphoresis. No trauma. No fe henry. No cough. No shortness of breath. Symptoms are mild to moderate in intensity. No specific worsening or improving factors. Patient voices no other complaints or concerns at this time. Portions of this note were created with voice recognition technology. There may be grammatical, spelling, punctuation or sound alike errors Timing/Duration: today (Leg swelling x2 to 3 days. Chest pain today.) Activities at Onset: none Quality: aching Location: substernal Chest Pain Radiation: no radiation Severity of Pain-Max: mild Severity of Pain-Current: none Modifying Factors: Improves With: nothing Associated Symptoms: denies symptoms Prior Chest Pain/Cardiac Workup: no prior chest pain Nitro Today/Relief: no nitro taken today Aspirin Treatment Today: no aspirin today Allergies/Adverse Reactions: erythromycin base Allergy (Intermediate, Verified 01/02/23 19:50) Rash shellfish derived Allergy (Intermediate, Verified 01/02/23 19:50) Rash Home Medications: Diltiazem HCl 30 mg [Cardizem 30 MG] 60 mg PO TID 05/25/16 [History] Meclizine HCl 25 mg [Antivert 25 mg] 25 mg PO QID 04/25/20 [History] Tizanidine HCl 4 mg [Zanaflex 4 MG] 4 mg PO HS 09/05/20 [History] ALPRAZolam 1 MG [Xanax 1 mg] 1 ea PO TID 04/09/21 [History] Prazosin HCl [Minipress] 1 ea PO DAILY 04/09/21 [History] Sertraline HCl 50 mg [Zoloft 50 mg Tablet] 1 ea PO DAILY 04/09/21 [History] Atorvastatin Calcium 20 mg PO DAILY 01/26/22 [History] Hx Tetanus, Diphtheria Vaccination/Date Given: Yes Hx Influenza Vaccination/Date Given: No Hx Pneumococcal Vaccination/Date Given: No Immunizations Up to Date: Yes Travel Risk - International Travel Have you traveled outside of the country in past 3 weeks: No - Coronavirus Screening Are you exhibiting any of the following symptoms?: No Close contact with a COVID-19 positive Pt in past 14-21 Days: No - Vaccine Status Have you recieved a Covid-19 vaccination: No - Review of Systems Constitutional: No Symptoms, No Fever, No Chills Eyes: No Symptoms Ears, Nose, & Throat: No Symptoms Respiratory: No Symptoms, No Cough, No Dyspnea Cardiac: No Symptoms, No Chest Pain, No Edema, No Syncope Abdominal/Gastrointestinal: No Symptoms, No Abdominal Pain, No Nausea, No Vomiting, No Diarrhea Genitourinary Symptoms: No Symptoms, No Dysuria Musculoskeletal: No Symptoms, No Back Pain, No Neck Pain Skin: No Symptoms, No Rash Neurological: No Symptoms, No Dizziness, No Focal Weakness, No Sensory Changes Psychological: No Symptoms Endocrine: No Symptoms Hematologic/Lymphatic: No Symptoms Immunological/Allergic: No Symptoms All Other Systems: Reviewed and Negative - Past Medical History Pertinent Past Medical History: Yes Neurological History: Other ENT History: No Pertinent History Cardiac History: Other Respiratory History: No Pertinent History Endocrine Medical History: No Pertinent History Musculoskeletal History: Degenerative Disk Disease, Fractures GI Medical History: Ulcer, GERD History: No Pertinent History Psycho-Social History: Anxiety, Depression Female Reproductive Disorders: Abnormal Uterine Bleeding Other Medical History: TBI, PTSD, ESOPHAGEAL AND HEART SPASMS. HX OF FRACTURES IN RIGHT SHOULDER "NEVER HEALED CORRECTLY WITH NERVE DAMAGE" - NO SURGERY. ARTHROSCOPY X 2 LEFT KNEE DUE TO MENISCAL ISSUES WITH MOST RECENT 1 YEAR AGO. torn rotator cuff and lt bicep - Past Surgical History Past Surgical History: Yes Neuro Surgical History: No Pertinent History Cardiac: No Pertinent History Respiratory: No Pertinent History Gastrointestinal: Cholecystectomy Genitourinary: No Pertinent History Musculoskeletal: Orthopedic Surgery Female Surgical History: Tubal Ligation, Dilation & Curettage Other Surgical History: left knee meniscus repair,left wrist cyst,Lap emily, colonoscopy and EGD, ablation, breast biopsy - Social History Smoking Status: Current every day smoker How long have you smoked: 19 years Exposure to second hand smoke: Yes Drug Use: none Patient Lives Alone: No Significant Family History: no pertinent family hx - Female History Hx Last Menstrual Period: ablation Hx Now: No - Nursing Vital Signs Nursing Vital Signs: Initial Vital Signs Temperature 97.9 F 01/02/23 19:31 Pulse Rate 76 01/02/23 19:31 Respiratory Rate 16 01/02/23 19:31 Blood Pressure 115/69 01/02/23 19:31 O2 Sat by Pulse Oximetry 98 01/02/23 19:31 Pain Scale Pain Intensity 0 - Physical Exam General Appearance: no apparent distress, alert Eye Exam: PERRL/EOMI, eyes nml inspection Ears, Nose, Throat Exam: normal ENT inspection, moist mucous membranes Neck Exam: normal inspection, non-tender, supple, full range of motion Respiratory Exam: normal breath sounds, lungs clear, No respiratory distress Cardiovascular Exam: regular rate/rhythm, normal heart sounds Gastrointestinal/Abdomen Exam: soft, No tenderness, No mass Back Exam: normal inspection, No CVA tenderness, No vertebral tenderness Extremity Exam: normal inspection, normal range of motion Neurologic Exam: alert, 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, cooperative, normal mood/affect, sensation nml, No motor deficits Skin Exam: normal color, warm, dry SpO2 Interpretation: normal SpO2: 97 O2 Delivery: Room Air - Course Nursing assessment & vital signs reviewed: Yes EKG Interpreted by Me: RATE (65), Sinus Rhythm, NORMAL AXIS, NORMAL INTERVALS - Radiology Exams Chest X-ray Interpretation: Interpreted by me (Normal chest x-ray) Ordered Tests: Active Orders 24 hr Category Date Time Status Environmental Manager STAT Care 01/02/23 20:00 Active EKG-ER Only STAT Care 01/02/23 19:58 Active Pulse Oximetry (ED) STAT Care 01/02/23 19:58 Active CHEST 1 VIEW (PORTABLE) Stat Exams 01/02/23 21:57 Taken CBC W DIFF Stat Lab 01/02/23 20:24 Completed CMP Stat Lab 01/02/23 20:24 Completed D-DIMER QUANTITATIVE Stat Lab 01/02/23 20:24 Completed HCG QUALITATIVE, SERUM Stat Lab 01/02/23 21:00 Completed HCG QUALITATIVE, URINE Stat Lab 01/02/23 20:24 Received NT PRO BNPII Stat Lab 01/02/23 20:24 Completed TROPONIN Q4H Lab 01/02/23 20:24 Completed TROPONIN Q4H Lab 01/02/23 22:02 Completed TROPONIN Q4H Lab 01/03/23 00:00 Ordered TROPONIN Q4H Lab 01/03/23 04:00 Ordered Lab/Rad Data: Laboratory Result Diagrams 01/02/23 20:24 01/02/23 20:24 Laboratory Results 01/02/23 01/02/23 01/02/23 Range/Units 22:02 21:00 20:24 WBC (4.0-10.5) x10^3/uL RBC (4.1-5.4) x10^6/uL Hgb (12.0-16.0) g/dL Hct (35-47) % MCV (78-100) fL MCH (26-32) pg MCHC (32-36) g/dL RDW (11.5-14.0) % Plt Count (150-450) x10^3/uL MPV (7.5-11.0) fL Gran % (36.0-66.0) % Immature Gran % (Auto) (0.00-0.4) % Nucleat RBC Rel Count (0.00-0.1) % Eos # (Auto) (0-0.5) x10^3/uL Immature Gran # (Auto) (0.00-0.03) x10^3u/L Absolute Lymphs (auto) (1.0-4.6) x10^3/uL Absolute Monos (auto) (0.0-1.3) x10^3/uL Absolute Nucleated RBC (0.00-0.01) x10^3u/L Lymphocytes % (24.0-44.0) % Monocytes % (0.0-12.0) % Eosinophils % (0.00-5.0) % Basophils % (0.0-0.4) % Absolute Granulocytes (1.4-6.9) x10^3/uL Basophils # (0-0.4) x10^3/uL D-Dimer (0.0-0.50) mg/L Sodium (137-145) mmol/L Potassium (3.5-5.1) mmol/L Chloride (98-107) mmol/L Carbon Dioxide (22-30) mmol/L Anion Gap (5-15) MEQ/L BUN (7-17) mg/dL Creatinine (0.52-1.04) mg/dL Estimated GFR ML/MIN Glucose (74-106) mg/dL Calcium (8.4-10.2) mg/dL Total Bilirubin (0.2-1.3) mg/dL AST (14-36) U/L ALT (0-35) U/L Alkaline Phosphatase (38-126) U/L Troponin I < 0.012 (0.000-0.034) ng/mL NT-Pro-B Natriuret Pep 448 (<300) pg/mL Serum Total Protein (6.3-8.2) g/dL Albumin (3.5-5.0) g/dL Serum HCG, Qual NEGATIVE (NEGATIVE) 01/02/23 01/02/23 01/02/23 Range/Units 20:24 20:24 20:24 WBC (4.0-10.5) x10^3/uL RBC (4.1-5.4) x10^6/uL Hgb (12.0-16.0) g/dL Hct (35-47) % MCV (78-100) fL MCH (26-32) pg MCHC (32-36) g/dL RDW (11.5-14.0) % Plt Count (150-450) x10^3/uL MPV (7.5-11.0) fL Gran % (36.0-66.0) % Immature Gran % (Auto) (0.00-0.4) % Nucleat RBC Rel Count (0.00-0.1) % Eos # (Auto) (0-0.5) x10^3/uL Immature Gran # (Auto) (0.00-0.03) x10^3u/L Absolute Lymphs (auto) (1.0-4.6) x10^3/uL Absolute Monos (auto) (0.0-1.3) x10^3/uL Absolute Nucleated RBC (0.00-0.01) x10^3u/L Lymphocytes % (24.0-44.0) % Monocytes % (0.0-12.0) % Eosinophils % (0.00-5.0) % Basophils % (0.0-0.4) % Absolute Granulocytes (1.4-6.9) x10^3/uL Basophils # (0-0.4) x10^3/uL D-Dimer 0.22 (0.0-0.50) mg/L Sodium 140 (137-145) mmol/L Potassium 3.5 (3.5-5.1) mmol/L Chloride 103 (98-107) mmol/L Carbon Dioxide 30 (22-30) mmol/L Anion Gap 10.4 (5-15) MEQ/L BUN 14 (7-17) mg/dL Creatinine 0.70 (0.52-1.04) mg/dL Estimated GFR > 60.0 ML/MIN Glucose 62 L (74-106) mg/dL Calcium 8.9 (8.4-10.2) mg/dL Total Bilirubin 0.50 (0.2-1.3) mg/dL AST 23 (14-36) U/L ALT 15 (0-35) U/L Alkaline Phosphatase 54 (38-126) U/L Troponin I < 0.012 (0.000-0.034) ng/mL NT-Pro-B Natriuret Pep (<300) pg/mL Serum Total Protein 7.0 (6.3-8.2) g/dL Albumin 4.1 (3.5-5.0) g/dL Serum HCG, Qual (NEGATIVE) 01/02/23 Range/Units 20:24 WBC 10.6 H (4.0-10.5) x10^3/uL RBC 3.73 L (4.1-5.4) x10^6/uL Hgb 12.5 (12.0-16.0) g/dL Hct 38.6 (35-47) % MCV 103.5 H (78-100) fL MCH 33.5 H (26-32) pg MCHC 32.4 (32-36) g/dL RDW 12.7 (11.5-14.0) % Plt Count 269 (150-450) x10^3/uL MPV 9.8 (7.5-11.0) fL Gran % 66.3 H (36.0-66.0) % Immature Gran % (Auto) 0.4 (0.00-0.4) % Nucleat RBC Rel Count 0.0 (0.00-0.1) % Eos # (Auto) 0.12 (0-0.5) x10^3/uL Immature Gran # (Auto) 0.04 H (0.00-0.03) x10^3u/L Absolute Lymphs (auto) 2.86 (1.0-4.6) x10^3/uL Absolute Monos (auto) 0.51 (0.0-1.3) x10^3/uL Absolute Nucleated RBC 0.00 (0.00-0.01) x10^3u/L Lymphocytes % 27.0 (24.0-44.0) % Monocytes % 4.8 (0.0-12.0) % Eosinophils % 1.1 (0.00-5.0) % Basophils % 0.4 (0.0-0.4) % Absolute Granulocytes 7.02 H (1.4-6.9) x10^3/uL Basophils # 0.04 (0-0.4) x10^3/uL D-Dimer (0.0-0.50) mg/L Sodium (137-145) mmol/L Potassium (3.5-5.1) mmol/L Chloride (98-107) mmol/L Carbon Dioxide (22-30) mmol/L Anion Gap (5-15) MEQ/L BUN (7-17) mg/dL Creatinine (0.52-1.04) mg/dL Estimated GFR ML/MIN Glucose (74-106) mg/dL Calcium (8.4-10.2) mg/dL Total Bilirubin (0.2-1.3) mg/dL AST (14-36) U/L ALT (0-35) U/L Alkaline Phosphatase (38-126) U/L Troponin I (0.000-0.034) ng/mL NT-Pro-B Natriuret Pep (<300) pg/mL Serum Total Protein (6.3-8.2) g/dL Albumin (3.5-5.0) g/dL Serum HCG, Qual (NEGATIVE) - Progress Progress: improved Air Movement: good Progress Note: Patient is a 37-year-old female presents to our ED for evaluation of foot and ankle swelling and nonspecific substernal chest pain. No associated symptoms. Physical exam within normal limits. EKG normal sinus rhythm. Chest x-ray negative. CBC CMP noncontributory. D-dimer negative. hCG negative. Troponin negative x2. Heart score is 1. Low risk of Mace of 0.9 to 1.7%. Patient reassessed. She remains pain-free. Work-up negative. Patient complained of foot and ankle swelling however none appreciated on my exam today. Patient complained of swelling of her eyelids. However her eyelids are currently not swollen. No indication for further work-up. Will discharge home. Patient agrees to follow-up with her primary care doctor within 48 hours for reevaluation. Portions of this note were created with voice recognition technology. There may be grammatical, spelling, punctuation or sound alike errors Complexity of problem addressed is moderate, new diagnosis with uncertain prognosis No critical care time Complex of data reviewed and analyzed is moderate. Test ordered. Test reviewed including laboratory studies, EKG and chest x-ray. Formal chest x-ray read pending. However work-up is essentially nonremarkable. Risk of complication and or risk of morbidity/mortality of patient management is low. No medicinal intervention administered. Work-up essentially normal. We will discharge home. Vital stable. Patient has no active chest pain. Plan of care established for shared decision making. No indication for further work- up at this time. Patient agrees to follow-up with her primary care doctor within 48 hours for reevaluation. Portions of this note were created with voice recognition technology. There may be grammatical, spelling, punctuation or sound alike errors 01/02/23 23:14 Blood Culture(s) Obtained: No Antibiotics given: No Counseled pt/family regarding: lab results, diagnosis, need for follow-up, rad results - Departure Departure Disposition: Home Clinical Impression: Chest pain Condition: Stable Critical Care Time: No Referrals: WAQAS BUCK NP [Primary Care Provider] - Follow up/PCP as directed Additional Instructions: Discharge/Care Plan SILVINAARAMIS MAZARIEGOS was seen on 01/02/23 in the Emergency Room. The patient was counseled regarding Diagnosis,Lab results, Imaging studies, need for follow up and when to return to the Emergency Room. Prescriptions given: Discharge Note I have spoken with the patient and/or caregivers. I have explained the patient's condition, diagnosis and treatment plan based on the information available to me at this time. I have answered the patient's and/or caregiver's questions and addressed any concerns. The patient and/or caregivers have as good understanding of the patient's diagnosis, condition and treatment plan as can be expected at this point. The vital signs have been stable. The patient's condition is stable and appropriate for discharge from the emergency department. The patient will pursue further outpatient evaluation with the primary care physician or other designated or consulting physician as outlined in the discharge instructions. The patient and/or caregivers are agreeable to this plan of care and follow-up instructions have been explained in detail. The patient and/or caregivers have received these instruction. The patient/and or caregivers are aware that any significant change in condition or worsening of symptoms should prompt an immediate return to this or the closest emergency department or call 911.
[2023-01-02 20:40] LABS: ALBUMIN 4.1 g/dL (3.5-5.0); ALKALINE PHOSPHATASE 54 U/L (38-126); ANION GAP 10.4 MEQ/L (5-15); BLOOD UREA NITROGEN 14 mg/dL (7-17); CHLORIDE 103 mmol/L (98-107); Calcium 8.9 mg/dL (8.4-10.2); Carbon Dioxide 30 mmol/L (22-30); EST GLOMERULAR FILTRATION RATE > 60.0 ML/MIN; Glucose 62 mg/dL (74-106); Potassium 3.5 mmol/L (3.5-5.1); SGOT/AST 23 U/L (14-36); SGPT/ALT 15 U/L (0-35); SODIUM 140 mmol/L (137-145)
[2023-01-02 21:30] VITALS: O2SAT 97
[2023-01-02 22:24] LABS: HCG SERUM TEST NEGATIVE (NEGATIVE)
[2023-01-02 23:20] VITALS: BP 114/81; PULSE 62
--- NOTE | 2023-01-03 08:54 | XRAY ---
Indication: Chest pain. Comparison: July 12, 2019 Portable chest again demonstrates normal heart and lungs. Bony thorax intact. No new/acute findings.
== END 2023-01-02 23:29 | disposition home or self-care (01) ==
LOC: ED 19:03
DX: R07.9 Chest pain, unspecified (principal); M79.89 Other specified soft tissue disorders; Z79.899 Other long term (current) drug therapy; Z28.310 Unvaccinated for COVID-19; Z72.0 Tobacco use
CPT/HCPCS: 36415; 71045; 80053; 81025; 83880; 84484; 84703; 85025; 85379; 93005; 93041; 94760; 99284

== ENCOUNTER 2023-05-11 07:00 | Emergency (ER) | payer OTHER ==
[2023-05-11 07:11] VITALS: TEMP 97.8
--- NOTE | 2023-05-11 07:33 | ERPHSYRPT ---
- History of Present Illness Time Seen by Provider: 05/11/23 07:10 Historian: patient Exam Limitations: no limitations Patient Subjective Stated Complaint: Chest pain Triage Nursing Assessment: Patient ambulated back to ED and transferred self to bed. Patient A+O X3. Patient's skin pink, warm and dry. Patient complains of chest pain that woke her up about 1 hour ago. Patient complains of constant chest pain 8/10 that goes into her back. Patient complains of nausea, but denies vomiting or diarrhea. Lungs clear a/p mis. Physician History: This is a 38-year-old white female patient who has a history of anxiety, esop hageal spasm and has had her gallbladder removed in the past and presents to the emergency department with substernal chest pressure that radiates straight through to her back. She herself, has never been diagnosed with coronary artery disease. She denies cough. She denies fever. She denies shortness of breath. The chest pain occurred suddenly approximately an hour to an hour and a half prior to arrival. Patient ate a submarine sandwich last evening. Patient states she is never had anything like this before. She denies abdominal pain. She denies vomiting and diarrhea symptoms. However, when the pain was at its greatest intensity she felt nauseated. The chest pain has improved but is not gone. Her nausea has resolved. Timing/Duration: today Activities at Onset: none Quality: pressure Location: substernal, central Chest Pain Radiation: back Severity of Pain-Max: moderate Severity of Pain-Current: mild (To moderate) Associated Symptoms: nausea Prior Chest Pain/Cardiac Workup: no prior chest pain, no prior cardiac workup Nitro Today/Relief: no nitro taken today Aspirin Treatment Today: 81 mg x 4 Allergies/Adverse Reactions: erythromycin base Allergy (Intermediate, Verified 05/11/23 07:02) Rash shellfish derived Allergy (Intermediate, Verified 05/11/23 07:02) Rash Home Medications: Diltiazem HCl 30 mg [Cardizem 30 MG] 60 mg PO TID 05/25/16 [History] Meclizine HCl 25 mg [Antivert 25 mg] 25 mg PO QID 04/25/20 [History] Tizanidine HCl 4 mg [Zanaflex 4 MG] 4 mg PO HS 09/05/20 [History] ALPRAZolam 1 MG [Xanax 1 mg] 1 ea PO TID 04/09/21 [History] Prazosin HCl [Minipress] 1 ea PO DAILY 04/09/21 [History] Sertraline HCl 50 mg [Zoloft 50 mg Tablet] 1 ea PO DAILY 04/09/21 [History] Atorvastatin Calcium 20 mg PO DAILY 01/26/22 [History] Hx Tetanus, Diphtheria Vaccination/Date Given: Yes Hx Influenza Vaccination/Date Given: No Hx Pneumococcal Vaccination/Date Given: No Immunizations Up to Date: Yes Travel Risk - International Travel Have you traveled outside of the country in past 3 weeks: No - Coronavirus Screening Are you exhibiting any of the following symptoms?: No Close contact with a COVID-19 positive Pt in past 14-21 Days: No - Vaccine Status Have you recieved a Covid-19 vaccination: No - Review of Systems Constitutional: No Symptoms Eyes: No Symptoms Ears, Nose, & Throat: No Symptoms Respiratory: No Symptoms Cardiac: Chest Pain (Substernal, central chest pressure) Abdominal/Gastrointestinal: No Symptoms Genitourinary Symptoms: No Symptoms Musculoskeletal: No Symptoms Skin: No Symptoms Neurological: No Symptoms Psychological: No Symptoms Endocrine: No Symptoms Hematologic/Lymphatic: No Symptoms Immunological/Allergic: No Symptoms All Other Systems: Reviewed and Negative - Past Medical History Pertinent Past Medical History: Yes Neurological History: Other ENT History: No Pertinent History Cardiac History: Other Respiratory History: No Pertinent History Endocrine Medical History: No Pertinent History Musculoskeletal History: Degenerative Disk Disease, Fractures GI Medical History: Ulcer, GERD History: No Pertinent History Psycho-Social History: Anxiety, Depression Female Reproductive Disorders: Abnormal Uterine Bleeding Other Medical History: TBI, PTSD, ESOPHAGEAL AND HEART SPASMS. HX OF FRACTURES IN RIGHT SHOULDER "NEVER HEALED CORRECTLY WITH NERVE DAMAGE" - NO SURGERY. ARTHROSCOPY X 2 LEFT KNEE DUE TO MENISCAL ISSUES WITH MOST RECENT 1 YEAR AGO. torn rotator cuff and lt bicep - Past Surgical History Past Surgical History: Yes Neuro Surgical History: No Pertinent History Cardiac: No Pertinent History Respiratory: No Pertinent History Gastrointestinal: Cholecystectomy Genitourinary: No Pertinent History Musculoskeletal: Orthopedic Surgery Female Surgical History: Tubal Ligation, Dilation & Curettage Other Surgical History: left knee meniscus repair,left wrist cyst,Lap emily, colonoscopy and EGD, ablation, breast biopsy - Social History Smoking Status: Current every day smoker How long have you smoked: 19 years Exposure to second hand smoke: Yes Drug Use: none Patient Lives Alone: No Significant Family History: no pertinent family hx - Female History Hx Last Menstrual Period: 3 weeks ago Hx Now: No - Nursing Vital Signs Nursing Vital Signs: Initial Vital Signs Pulse Rate 56 L 05/11/23 07:01 Respiratory Rate 19 05/11/23 07:01 Blood Pressure 135/92 05/11/23 07:01 O2 Sat by Pulse Oximetry 97 05/11/23 07:01 Pain Scale Pain Intensity 8 - Physical Exam General Appearance: no apparent distress, alert, anxiety Eye Exam: PERRL/EOMI, eyes nml inspection Ears, Nose, Throat Exam: normal ENT inspection, moist mucous membranes Neck Exam: normal inspection, non-tender, supple, full range of motion Respiratory Exam: normal breath sounds, lungs clear, airway intact, No chest tenderness, No respiratory distress Cardiovascular Exam: regular rate/rhythm, normal heart sounds, normal peripheral pulses Gastrointestinal/Abdomen Exam: soft, normal bowel sounds, No tenderness Pelvic Exam: not done Rectal Exam: not done Back Exam: normal inspection, normal range of motion, No CVA tenderness, No vertebral tenderness Extremity Exam: normal inspection, normal range of motion, pelvis stable Neurologic Exam: alert, 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, cooperative, 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 as tested, normal mood/affect, nml cerebellar function, nml station & gait, sensation nml Skin Exam: normal color, warm, dry Lymphatic Exam: No adenopathy SpO2 Interpretation: normal SpO2: 99 O2 Delivery: Room Air - Course Nursing assessment & vital signs reviewed: Yes EKG Interpreted by Me: RATE ([id number]), Sinus Rhythm, NORMAL AXIS, NORMAL INTERVALS, NORMAL QRS, NORMAL ST-T, Other (No acute ischemic changes on today's twelve-lead EKG.) Ordered Tests: Active Orders 24 hr Category Date Time Status [employer] STAT Care 05/11/23 07:41 Active EKG-ER Only STAT Care 05/11/23 07:40 Active IV Insertion STAT Care 05/11/23 07:40 Active Pulse Oximetry (ED) STAT Care 05/11/23 07:40 Active CHEST 1 VIEW (PORTABLE) Stat Exams 05/11/23 07:41 Taken CBC W DIFF Stat Lab 05/11/23 07:51 Completed CMP Stat Lab 05/11/23 08:20 Completed D-DIMER QUANTITATIVE Stat Lab 05/11/23 07:40 Completed TROPONIN Q4H Lab 05/11/23 08:20 Completed TROPONIN Q4H Lab 05/11/23 11:45 Ordered TROPONIN Q4H Lab 05/11/23 15:45 Ordered Medication Summary Discontinued Medications Generic Name Dose Route Start Last Admin Trade Name Rhea PRN Reason Stop Dose Admin Aspirin 324 mg 05/11/23 07:40 05/11/23 07:53 Aspirin 81 Mg Tab.Chew PO 05/11/23 07:41 324 mg STAT ONE Administration Aspirin Confirm 05/11/23 07:51 Aspirin 81 Mg Tab.Chew Administered 05/11/23 07:52 Dose 324 mg .ROUTE .STK-MED ONE Morphine Sulfate 2 mg 05/11/23 07:40 Morphine Sulfate 2 Mg/Ml Inj IV 05/11/23 07:41 STAT ONE Nitroglycerin 0.4 mg 05/11/23 07:40 05/11/23 07:53 Nitroglycerin 0.4 Mg (Ed) 0.4 Mg Tab.Subl SL 05/11/23 07:41 0.4 mg STAT ONE Administration Nitroglycerin Confirm 05/11/23 07:51 Nitroglycerin 0.4 Mg (Ed) 0.4 Mg Tab.Subl Administered 05/11/23 07:52 Dose 0.4 mg SL .STK-MED ONE Ondansetron HCl 4 mg 05/11/23 07:40 05/11/23 07:52 Ondansetron Hcl 4 Mg/2 Ml Vial IV 05/11/23 07:41 4 mg STAT ONE Administration Ondansetron HCl Confirm 05/11/23 07:51 Ondansetron Hcl 4 Mg/2 Ml Vial Administered 05/11/23 07:52 Dose 4 mg .ROUTE .STK-MED ONE Lab/Rad Data: Laboratory Result Diagrams 05/11/23 07:51 05/11/23 08:20 Laboratory Results 05/11/23 05/11/23 05/11/23 Range/Units 08:20 08:20 07:51 WBC 7.6 (4.0-10.5) x10^3/uL RBC 4.32 (4.1-5.4) x10^6/uL Hgb 14.6 (12.0-16.0) g/dL Hct 43.2 (35-47) % MCV 100.0 (78-100) fL MCH 33.8 H (26-32) pg MCHC 33.8 (32-36) g/dL RDW 11.8 (11.5-14.0) % Plt Count 241 (150-450) x10^3/uL MPV 10.5 (7.5-11.0) fL Gran % 54.2 (36.0-66.0) % Immature Gran % (Auto) 0.3 (0.00-0.4) % Nucleat RBC Rel Count 0.0 (0.00-0.1) % Eos # (Auto) 0.20 (0-0.5) x10^3/uL Immature Gran # (Auto) 0.02 (0.00-0.03) x10^3u/L Absolute Lymphs (auto) 2.82 (1.0-4.6) x10^3/uL Absolute Monos (auto) 0.38 (0.0-1.3) x10^3/uL Absolute Nucleated RBC 0.00 (0.00-0.01) x10^3u/L Lymphocytes % 37.2 (24.0-44.0) % Monocytes % 5.0 (0.0-12.0) % Eosinophils % 2.6 (0.00-5.0) % Basophils % 0.7 (0.0-0.4) % Absolute Granulocytes 4.11 (1.4-6.9) x10^3/uL Basophils # 0.05 (0-0.4) x10^3/uL D-Dimer (0.0-0.50) mg/L Sodium 138 (137-145) mmol/L Potassium 4.6 (3.5-5.1) mmol/L Chloride 105 (98-107) mmol/L Carbon Dioxide 27 (22-30) mmol/L Anion Gap 10.8 (5-15) MEQ/L BUN 12 (7-17) mg/dL Creatinine 0.77 (0.52-1.04) mg/dL Estimated GFR 100.6 ML/MIN Glucose 100 (74-106) mg/dL Calcium 9.4 (8.4-10.2) mg/dL Total Bilirubin 0.70 (0.2-1.3) mg/dL AST 24 (14-36) U/L ALT 16 (0-35) U/L Alkaline Phosphatase 73 (38-126) U/L Troponin I < 0.012 (0.000-0.034) ng/mL Serum Total Protein 6.8 (6.3-8.2) g/dL Albumin 4.2 (3.5-5.0) g/dL 05/11/23 Range/Units 07:40 WBC (4.0-10.5) x10^3/uL RBC (4.1-5.4) x10^6/uL Hgb (12.0-16.0) g/dL Hct (35-47) % MCV (78-100) fL MCH (26-32) pg MCHC (32-36) g/dL RDW (11.5-14.0) % Plt Count (150-450) x10^3/uL MPV (7.5-11.0) fL Gran % (36.0-66.0) % Immature Gran % (Auto) (0.00-0.4) % Nucleat RBC Rel Count (0.00-0.1) % Eos # (Auto) (0-0.5) x10^3/uL Immature Gran # (Auto) (0.00-0.03) x10^3u/L Absolute Lymphs (auto) (1.0-4.6) x10^3/uL Absolute Monos (auto) (0.0-1.3) x10^3/uL Absolute Nucleated RBC (0.00-0.01) x10^3u/L Lymphocytes % (24.0-44.0) % Monocytes % (0.0-12.0) % Eosinophils % (0.00-5.0) % Basophils % (0.0-0.4) % Absolute Granulocytes (1.4-6.9) x10^3/uL Basophils # (0-0.4) x10^3/uL D-Dimer < 0.19 (0.0-0.50) mg/L Sodium (137-145) mmol/L Potassium (3.5-5.1) mmol/L Chloride (98-107) mmol/L Carbon Dioxide (22-30) mmol/L Anion Gap (5-15) MEQ/L BUN (7-17) mg/dL Creatinine (0.52-1.04) mg/dL Estimated GFR ML/MIN Glucose (74-106) mg/dL Calcium (8.4-10.2) mg/dL Total Bilirubin (0.2-1.3) mg/dL AST (14-36) U/L ALT (0-35) U/L Alkaline Phosphatase (38-126) U/L Troponin I (0.000-0.034) ng/mL Serum Total Protein (6.3-8.2) g/dL Albumin (3.5-5.0) g/dL - Progress Progress: improved, re-examined Air Movement: good Progress Note: 05/11/23 07:56 This patient's medical issue is 1 of moderate complexity. Level complex in the work-up performed based on review of the patient's past medical history, review the patient's medication list, review the patient's drug allergy list, history present illness and physical findings on examination. The work-up in this patient includes a chest x-ray, twelve-lead EKG, intravenous line placement, troponin level, D-dimer level, CBC, CMP, urinalysis. We will provide her with 4 baby aspirin, 2 mg of intravenous morphine and 1 sublingual nitroglycerin tablet. 05/11/23 08:47 Chest x-ray was interpreted by me. There is no evidence of any acute cardiopulmonary process. I interpreted the laboratory study results. There is no evidence of any acute, emergent medical issue. Blood Culture(s) Obtained: No Antibiotics given: No Counseled pt/family regarding: lab results, diagnosis, need for follow-up, rad results Medical Desision Making - Independent Historian Additional History obtained from: Spouse - Diagnostic Testing Diagnostic test were ordered, analyzed, and reviewed by me: Yes Radiological Interpretation: Interpreted by me - Risk of complications Minimal Risk: Minimal risk of morbidity - Departure Departure Disposition: Home Clinical Impression: Nonspecific chest pain Condition: Stable Critical Care Time: No Referrals: WAQAS BUCK UTILITY LOCATE TECHNICIAN [Primary Care Provider] - Follow up/PCP as directed Additional Instructions: Drink plenty of fluids. Take your medication as prescribed. Call your primary care provider today, 05/11/2023, to make arranges for follow-up appointment for further evaluation management in the next 3 days
[2023-05-11] MEDS ORDERED: Nitrostat 0.4 MG (ED) SL ONE ×2 (07:40→07:51)
[2023-05-11] MEDS ORDERED: Zofran 4 MG/2 ML VIAL IV ONE (07:40)
[2023-05-11] MEDS ORDERED: MORPHINE SULFATE 2 MG INJ IV ONE (07:40)
[2023-05-11] MEDS ORDERED: BABY ASPIRIN 81 MG CHEW PO ONE (07:40)
[2023-05-11] MEDS ORDERED: Zofran 4 MG/2 ML VIAL ONE (07:51)
[2023-05-11] MEDS ORDERED: BABY ASPIRIN 81 MG CHEW ONE (07:51)
[2023-05-11 07:53] LABS: Absolute Neutrophil Ct (ANC) 4.11 x10^3/uL (1.4-6.9); BASOPHIL % 0.7 % (0.0-0.4); Basophil (Absolute #) 0.05 x10^3/uL (0-0.4); Eosinophil % 2.6 % (0.00-5.0); Hematocrit 43.2 % (35-47); Hemoglobin 14.6 g/dL (12.0-16.0); IMMATURE GRAN # 0.02 x10^3u/L (0.00-0.03); IMMATURE GRAN % 0.3 % (0.00-0.4); Lymphocyte (Absolute #) 2.82 x10^3/uL (1.0-4.6); Lymphocytes % 37.2 % (24.0-44.0); Mean Corpuscular Hemoglobin 33.8 pg (26-32); Mean Corpuscular Hgb Concent. 33.8 g/dL (32-36); Mean Platelet Volume 10.5 fL (7.5-11.0); Monocyte (Absolute #) 0.38 x10^3/uL (0.0-1.3); Neutrophil % 54.2 % (36.0-66.0); Platelet Count 241 x10^3/uL (150-450); Red Blood Count 4.32 x10^6/uL (4.1-5.4); Red Cell Distribution Width 11.8 % (11.5-14.0); White Blood Count 7.6 x10^3/uL (4.0-10.5)
[2023-05-11 08:32] LABS: ALBUMIN 4.2 g/dL (3.5-5.0); ANION GAP 10.8 MEQ/L (5-15); BILIRUBIN,TOTAL 0.7 mg/dL (0.2-1.3); Calcium 9.4 mg/dL (8.4-10.2); Creatinine 1 0.77 mg/dL (0.52-1.04); EST GLOMERULAR FILTRATION RATE 100.6 ML/MIN; Potassium 4.6 mmol/L (3.5-5.1); Total Protein 6.8 g/dL (6.3-8.2)
[2023-05-11 08:34] VITALS: BP 99/62; PULSE 43; RESP 19
[2023-05-11 08:49] VITALS: O2SAT 99
--- NOTE | 2023-05-11 08:51 | XRAY ---
Indication: Chest pain. Comparison: January 02, 2023 Portable chest again demonstrates normal heart, lungs, and bony thorax.
== END 2023-05-11 09:02 | disposition home or self-care (01) ==
LOC: ED 07:00
DX: R07.9 Chest pain, unspecified (principal); Z79.899 Other long term (current) drug therapy; Z28.310 Unvaccinated for COVID-19; Z72.0 Tobacco use
CPT/HCPCS: 36000; 36415; 71045; 80053; 84484; 85025; 85379; 93005; 93041; 94760; 96374; 99284; J2405; A9270-GY

== ENCOUNTER 2023-05-13 04:28 | Emergency (ER) | payer OTHER ==
[2023-05-13 04:33] VITALS: TEMP 97.7
[2023-05-13] MEDS ORDERED: Cardizem 30 MG PO STA (04:47)
[2023-05-13] MEDS ORDERED: GI COCKTAIL 45 ML (Maalox/Lidocaine) PO ONE (04:47)
[2023-05-13] MEDS ORDERED: XYLOCAINE VISCOUS 2% 15 ML CUP ONE (04:52)
[2023-05-13] MEDS ORDERED: MAALOX ES 30 ML UNIT DOSE ONE (04:52)
[2023-05-13 05:16] LABS: Absolute Neutrophil Ct (ANC) 6.19 x10^3/uL (1.4-6.9); BASOPHIL % 0.7 % (0.0-0.4); Basophil (Absolute #) 0.07 x10^3/uL (0-0.4); Eosinophil % 2.4 % (0.00-5.0); Eosinophil (Absolute #) 0.26 x10^3/uL (0-0.5); Hematocrit 44.6 % (35-47); Hemoglobin 14.6 g/dL (12.0-16.0); IMMATURE GRAN # 0.06 x10^3u/L (0.00-0.03); IMMATURE GRAN % 0.6 % (0.00-0.4); Lymphocytes % 33.5 % (24.0-44.0); Mean Cell Volume 102.1 fL (78-100); Mean Corpuscular Hemoglobin 33.4 pg (26-32); Mean Corpuscular Hgb Concent. 32.7 g/dL (32-36); Mean Platelet Volume 10.2 fL (7.5-11.0); Monocyte (Absolute #) 0.58 x10^3/uL (0.0-1.3); Monocytes % 5.4 % (0.0-12.0); Neutrophil % 57.4 % (36.0-66.0); Platelet Count 259 x10^3/uL (150-450); Red Blood Count 4.37 x10^6/uL (4.1-5.4); Red Cell Distribution Width 11.7 % (11.5-14.0); White Blood Count 10.8 x10^3/uL (4.0-10.5)
[2023-05-13 05:36] LABS: ALBUMIN 4.4 g/dL (3.5-5.0); ALKALINE PHOSPHATASE 77 U/L (38-126); ANION GAP 14.6 MEQ/L (5-15); BLOOD UREA NITROGEN 15 mg/dL (7-17); CHLORIDE 102 mmol/L (98-107); Calcium 9.7 mg/dL (8.4-10.2); Carbon Dioxide 26 mmol/L (22-30); Creatinine 1 0.89 mg/dL (0.52-1.04); EST GLOMERULAR FILTRATION RATE 84.5 ML/MIN; Glucose 107 mg/dL (74-106); Potassium 4.1 mmol/L (3.5-5.1); SGOT/AST 22 U/L (14-36); SGPT/ALT 17 U/L (0-35); SODIUM 138 mmol/L (137-145); TROPONIN < 0.012 ng/mL (0.000-0.034); Total Protein 7.2 g/dL (6.3-8.2)
[2023-05-13 06:06] VITALS: BP 114/77; PULSE 45; RESP 19; O2SAT 96
[2023-05-13] MEDS ORDERED: Protonix 40MG Tablet PO ONE (06:17)
[2023-05-13] MEDS ORDERED: Protonix 40MG Tablet ONE (06:18)
--- NOTE | 2023-05-13 06:32 | ERPHSYRPT ---
- History of Present Illness Time Seen by Provider: 05/13/23 04:40 Historian: patient Exam Limitations: no limitations Patient Subjective Stated Complaint: chest pain, but I feel like it may be esophageal spasming Triage Nursing Assessment: pt ambulated into ER without diff, pt c/o chest pain but states, "I feel like it may be esophageal spasming". Pt has some nausea but no vomiting. Pt was seen in this ER 2 nights ago for the same symptoms. Pt states, "I got hot in bed and woke up and started having the pains". Lungs clear, heart tones reg, abd soft with active bs x4 quad, nontender. Physician History: Patient is a 38-year-old white female who awoke at 4 AM with substernal chest pain. This pain radiates through to the back. She has a history of similar episodes many times she has been treated with Cardizem nitroglycerin numerous other things for esophageal spasm or questionable reflux. She has never received a part proton pump inhibitor or GI cocktail. Timing/Duration: today Activities at Onset: sleep Quality: sharpness, stabbing Location: substernal Chest Pain Radiation: back Severity of Pain-Max: moderate Severity of Pain-Current: mild Associated Symptoms: nausea Prior Chest Pain/Cardiac Workup: angina Nitro Today/Relief: no nitro taken today Aspirin Treatment Today: no aspirin today Allergies/Adverse Reactions: erythromycin base Allergy (Intermediate, Verified 05/13/23 04:40) Rash shellfish derived Allergy (Intermediate, Verified 05/13/23 04:40) Rash Hx Tetanus, Diphtheria Vaccination/Date Given: Yes Hx Influenza Vaccination/Date Given: No Hx Pneumococcal Vaccination/Date Given: No Travel Risk - International Travel Have you traveled outside of the country in past 3 weeks: No - Coronavirus Screening Are you exhibiting any of the following symptoms?: No Close contact with a COVID-19 positive Pt in past 14-21 Days: No - Vaccine Status Have you recieved a Covid-19 vaccination: No - Review of Systems Constitutional: No Fever, No Chills Eyes: No Symptoms Ears, Nose, & Throat: No Symptoms Respiratory: No Cough, No Dyspnea Cardiac: Chest Pain, No Edema, No Syncope Abdominal/Gastrointestinal: Nausea, No Abdominal Pain, No Vomiting, No Diarrhea Genitourinary Symptoms: No Dysuria Musculoskeletal: No Back Pain, No Neck Pain Skin: No Rash Neurological: No Dizziness, No Focal Weakness, No Sensory Changes Psychological: No Symptoms Endocrine: No Symptoms All Other Systems: Reviewed and Negative - Past Medical History Pertinent Past Medical History: Yes Neurological History: Other ENT History: No Pertinent History Cardiac History: Other Respiratory History: No Pertinent History Endocrine Medical History: No Pertinent History Musculoskeletal History: Degenerative Disk Disease, Fractures GI Medical History: Ulcer, GERD History: No Pertinent History Psycho-Social History: Anxiety, Depression Female Reproductive Disorders: Abnormal Uterine Bleeding Other Medical History: TBI, PTSD, ESOPHAGEAL AND HEART SPASMS. HX OF FRACTURES IN RIGHT SHOULDER "NEVER HEALED CORRECTLY WITH NERVE DAMAGE" - NO SURGERY. ARTHROSCOPY X 2 LEFT KNEE DUE TO MENISCAL ISSUES WITH MOST RECENT 1 YEAR AGO. torn rotator cuff and lt bicep - Past Surgical History Past Surgical History: Yes Neuro Surgical History: No Pertinent History Cardiac: No Pertinent History Respiratory: No Pertinent History Gastrointestinal: Cholecystectomy Genitourinary: No Pertinent History Musculoskeletal: Orthopedic Surgery Female Surgical History: Tubal Ligation, Dilation & Curettage Other Surgical History: left knee meniscus repair,left wrist cyst,Lap emily, colonoscopy and EGD, ablation, breast biopsy - Social History Smoking Status: Current every day smoker How long have you smoked: 19 years Exposure to second hand smoke: Yes Drug Use: none Patient Lives Alone: No Significant Family History: no pertinent family hx - Female History Hx Now: No - Nursing Vital Signs Nursing Vital Signs: Initial Vital Signs Temperature 97.7 F 05/13/23 04:30 Pulse Rate 60 05/13/23 04:30 Respiratory Rate 18 05/13/23 04:30 Blood Pressure 128/82 05/13/23 04:30 O2 Sat by Pulse Oximetry 99 05/13/23 04:30 Pain Scale Pain Intensity 8 - Physical Exam General Appearance: moderate distress, alert Eye Exam: PERRL/EOMI, eyes nml inspection Ears, Nose, Throat Exam: normal ENT inspection, moist mucous membranes Neck Exam: normal inspection, non-tender, supple, full range of motion Respiratory Exam: normal breath sounds, lungs clear, No respiratory distress Cardiovascular Exam: regular rate/rhythm, normal heart sounds Gastrointestinal/Abdomen Exam: soft, No tenderness, No mass Back Exam: normal inspection, No CVA tenderness, No vertebral tenderness Extremity Exam: normal inspection, normal range of motion Neurologic Exam: alert, 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, cooperative, normal mood/affect, sensation nml, No motor deficits Skin Exam: normal color, warm, dry SpO2: 96 - Course Nursing assessment & vital signs reviewed: Yes EKG Interpreted by Me: RATE (58), Sinus Rhythm, NORMAL AXIS, NORMAL INTERVALS, NORMAL QRS, NORMAL ST-T - Radiology Exams Chest X-ray Interpretation: Interpreted by me, Negative Ordered Tests: Active Orders 24 hr Category Date Time Status EKG-ER Only STAT Care 05/13/23 04:45 Active CHEST 1 VIEW (PORTABLE) Stat Exams 05/13/23 05:01 Taken CBC W DIFF Stat Lab 05/13/23 05:13 Completed CMP Stat Lab 05/13/23 05:13 Completed TROPONIN Q4H Lab 05/13/23 05:13 Completed TROPONIN Q4H Lab 05/13/23 08:45 Ordered TROPONIN Q4H Lab 05/13/23 12:45 Ordered Medication Summary Discontinued Medications Generic Name Dose Route Start Last Admin Trade Name Freq PRN Reason Stop Dose Admin Al Hydrox/Mg Hydrox/Simethicone Confirm 05/13/23 04:52 Mag Hydrox/Al Hydrox/Simeth 30 Ml Udcup Administered 05/13/23 04:53 Dose 30 ml .ROUTE .STK-MED ONE Diltiazem HCl 60 mg 05/13/23 04:47 Diltiazem Hcl 30 Mg Tablet PO 05/13/23 04:48 ONCE STA Lidocaine HCl Confirm 05/13/23 04:52 Lidocaine Hcl 2% Viscous 15 Ml Udcup Administered 05/13/23 04:53 Dose 15 ml .ROUTE .STK-MED ONE Magnesium Hydroxide 45 ml 05/13/23 04:47 05/13/23 04:52 Mag Hydrx/Alum Hyd/Simeth/Lido 45 Ml Bottle PO 05/13/23 04:48 45 ml STAT ONE Administration Pantoprazole Sodium 40 mg 05/13/23 06:17 05/13/23 06:18 Protonix (Pantoprazole) 40 Mg Tablet PO 05/13/23 06:18 40 mg STAT ONE Administration Pantoprazole Sodium Confirm 05/13/23 06:18 Protonix (Pantoprazole) 40 Mg Tablet Administered 05/13/23 06:19 Dose 40 mg .ROUTE .STK-MED ONE Lab/Rad Data: Laboratory Result Diagrams 05/13/23 05:13 05/13/23 05:13 Laboratory Results 05/13/23 05/13/23 Range/Units 05:13 05:13 WBC 10.8 H (4.0-10.5) x10^3/uL RBC 4.37 (4.1-5.4) x10^6/uL Hgb 14.6 (12.0-16.0) g/dL Hct 44.6 (35-47) % MCV 102.1 H (78-100) fL MCH 33.4 H (26-32) pg MCHC 32.7 (32-36) g/dL RDW 11.7 (11.5-14.0) % Plt Count 259 (150-450) x10^3/uL MPV 10.2 (7.5-11.0) fL Gran % 57.4 (36.0-66.0) % Immature Gran % (Auto) 0.6 H (0.00-0.4) % Nucleat RBC Rel Count 0.0 (0.00-0.1) % Eos # (Auto) 0.26 (0-0.5) x10^3/uL Immature Gran # (Auto) 0.06 H (0.00-0.03) x10^3u/L Absolute Lymphs (auto) 3.60 (1.0-4.6) x10^3/uL Absolute Monos (auto) 0.58 (0.0-1.3) x10^3/uL Absolute Nucleated RBC 0.00 (0.00-0.01) x10^3u/L Lymphocytes % 33.5 (24.0-44.0) % Monocytes % 5.4 (0.0-12.0) % Eosinophils % 2.4 (0.00-5.0) % Basophils % 0.7 (0.0-0.4) % Absolute Granulocytes 6.19 (1.4-6.9) x10^3/uL Basophils # 0.07 (0-0.4) x10^3/uL Sodium 138 (137-145) mmol/L Potassium 4.1 (3.5-5.1) mmol/L Chloride 102 (98-107) mmol/L Carbon Dioxide 26 (22-30) mmol/L Anion Gap 14.6 (5-15) MEQ/L BUN 15 (7-17) mg/dL Creatinine 0.89 (0.52-1.04) mg/dL Estimated GFR 84.5 ML/MIN Glucose 107 H (74-106) mg/dL Calcium 9.7 (8.4-10.2) mg/dL Total Bilirubin 0.60 (0.2-1.3) mg/dL AST 22 (14-36) U/L ALT 17 (0-35) U/L Alkaline Phosphatase 77 (38-126) U/L Troponin I < 0.012 (0.000-0.034) ng/mL Serum Total Protein 7.2 (6.3-8.2) g/dL Albumin 4.4 (3.5-5.0) g/dL - Progress Air Movement: good Blood Culture(s) Obtained: No Antibiotics given: No Medical Desision Making - Diagnostic Testing Diagnostic test were ordered, analyzed, and reviewed by me: Yes Radiological Interpretation: Interpreted by me - Risk of complications Minimal Risk: Minimal risk of morbidity - Departure Departure Disposition: Home Clinical Impression: GERD (gastroesophageal reflux disease) Condition: Stable Critical Care Time: No Referrals: WAQAS BUCK NP [Primary Care Provider] - Follow up/PCP as directed Instructions: Acid Reflux and GERD in Adults (DC) Prescriptions: PANTOPRAZOLE 40 mg Tablet [Protonix 40MG Tablet] 40 mg PO QAM 30 Days #30 tab
--- NOTE | 2023-05-13 08:44 | XRAY ---
Indication: Chest pain. Comparison: May 11, 2023 Portable chest again demonstrates normal heart, lungs, and bony thorax.
== END 2023-05-13 06:44 | disposition home or self-care (01) ==
LOC: ED 04:28
DX: K21.9 Gastro-esophageal reflux disease without esophagitis (principal); R07.9 Chest pain, unspecified; Z28.310 Unvaccinated for COVID-19; Z72.0 Tobacco use
CPT/HCPCS: 36415; 71045; 80053; 84484; 85025; 93005; 99283; A9270-GY

== ENCOUNTER 2023-07-05 08:58 | Emergency (ER) | payer OTHER ==
[2023-07-05] MEDS ORDERED: ZOFRAN ODT 4 MG PO ONE ×2 (09:15→09:47)
[2023-07-05] MEDS ORDERED: ZOFRAN ODT 4 MG ONE ×2 (09:16→10:03)
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
[2023-07-05 09:24] VITALS: RESP 18; TEMP 97.6
[2023-07-05 11:03] VITALS: BP 102/60; PULSE 49
[2023-07-05 11:16] LABS: ADD URINE CULTURE? NO (NO); Appearance Clear (Clear); Bacteria None Seen /HPF (None Seen); Bilirubin Negative (Negative); Blood Negative (Negative); Epithelial Cells Few /HPF (None Seen); Glucose, Urine Negative (Negative); Hyaline Casts NONE SEEN /LPF (0-2); Ketones Negative (Negative); Leukocyte Esterase Negative (Negative); Nitrite Negative (Negative); Ph 7.5 (4.6-8.0); Protein,Urine Dip Negative (Negative); Specific Gravity <=1.005 (1.005-1.030); Urobilinogen 0.2 mg/dL (0.2); WBC 0-2 /HPF (0-5)
[2023-07-05 11:25] VITALS: O2SAT 98
== END 2023-07-05 11:41 | disposition home or self-care (01) ==
LOC: ED 08:58
DX: R11.0 Nausea (principal); Z28.310 Unvaccinated for COVID-19; Z72.0 Tobacco use
CPT/HCPCS: 81001; 99282; Q0162

== ENCOUNTER 2023-07-15 09:20 | Emergency (ER) | payer OTHER ==
[2023-07-15 09:42] VITALS: TEMP 97.8
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
[2023-07-15] MEDS ORDERED: Compazine 10 MG/2 ML IV ONE (10:32)
[2023-07-15] MEDS ORDERED: Sodium Chloride 0.9% 1000 ML 1,000 ML IV STA (10:32)
[2023-07-15] MEDS ORDERED: Sodium Chloride 0.9% 1000 ML 1,000 ML ONE (10:40)
[2023-07-15] MEDS ORDERED: Compazine 10 MG/2 ML ONE (10:40)
[2023-07-15 11:11] LABS: BASOPHIL % 0.5 % (0.0-0.4); Basophil (Absolute #) 0.04 x10^3/uL (0-0.4); Eosinophil % 1.5 % (0.00-5.0); Eosinophil (Absolute #) 0.11 x10^3/uL (0-0.5); Hematocrit 42.4 % (35-47); IMMATURE GRAN # 0.03 x10^3u/L (0.00-0.03); IMMATURE GRAN % 0.4 % (0.00-0.4); Lymphocyte (Absolute #) 1.43 x10^3/uL (1.0-4.6); Lymphocytes % 19.3 % (24.0-44.0); Mean Cell Volume 101.7 fL (78-100); Mean Corpuscular Hemoglobin 33.6 pg (26-32); Mean Platelet Volume 10.9 fL (7.5-11.0); Monocyte (Absolute #) 0.31 x10^3/uL (0.0-1.3); Monocytes % 4.2 % (0.0-12.0); Neutrophil % 74.1 % (36.0-66.0); Platelet Count 255 x10^3/uL (150-450); Red Blood Count 4.17 x10^6/uL (4.1-5.4); Red Cell Distribution Width 11.9 % (11.5-14.0); White Blood Count 7.4 x10^3/uL (4.0-10.5)
[2023-07-15 11:19] LABS: Appearance Cloudy (Clear); Bacteria Few /HPF (None Seen); Bilirubin Negative (Negative); Blood Negative (Negative); Epithelial Cells Moderate /HPF (None Seen); Glucose, Urine Negative (Negative); Hyaline Casts NONE SEEN /LPF (0-2); Ketones Negative (Negative); Leukocyte Esterase Small (Negative); Nitrite Negative (Negative); Ph 6.5 (4.6-8.0); Protein,Urine Dip Negative (Negative); Specific Gravity 1.015 (1.005-1.030); Urobilinogen 0.2 mg/dL (0.2); WBC 0-2 /HPF (0-5)
[2023-07-15 11:20] LABS: ADD URINE CULTURE? NO (NO)
--- NOTE | 2023-07-15 11:23 | XRAY ---
Indication: Epigastric pain and vomiting. Multiple contiguous axial images obtained through the abdomen and pelvis without contrast. Comparison: January 26, 2022 Lung bases again demonstrates tiny left base calcified granuloma. Heart not enlarged. Noncontrasted stomach and bowel loops nonobstructed again with normal appendix. Mild sigmoid diverticulosis without diverticulitis. Again 3.1 cm left ovary cyst and cholecystectomy. No free fluid/air. Remaining liver, pancreas, spleen, adrenal glands, kidneys, ureters, bladder, uterus, and aorta are unremarkable for noncontrast exam. Osseous structures intact. Impression: Again incidental sigmoid diverticulosis, 3.1 cm dominant left ovary cyst, and old granulomatous disease. Remaining CT abdomen/pelvis without contrast exam continues to be negative.
[2023-07-15 11:27] LABS: ALBUMIN 3.8 g/dL (3.5-5.0); ANION GAP 11.2 MEQ/L (5-15); BILIRUBIN,TOTAL 0.5 mg/dL (0.2-1.3); Calcium 8.9 mg/dL (8.4-10.2); Creatinine 1 0.74 mg/dL (0.52-1.04); EST GLOMERULAR FILTRATION RATE 105.5 ML/MIN; Potassium 3.3 mmol/L (3.5-5.1); Total Protein 6.3 g/dL (6.3-8.2)
[2023-07-15] MEDS ORDERED: Klor Con PO ONE ×2 (12:05→12:08)
[2023-07-15] MEDS ORDERED: ROCEPHIN 1 Gm-D5w 50 ml Bag** 1 G/50 ML IVPB IV STA (12:05)
[2023-07-15] MEDS ORDERED: ROCEPHIN 1 Gm-D5w 50 ml Bag** 1 G/50 ML IVPB IV ONE (12:08)
[2023-07-15 13:18] VITALS: BP 134/84; PULSE 55; RESP 23; O2SAT 92
== END 2023-07-15 13:27 | disposition home or self-care (01) ==
LOC: ED 09:20
DX: N39.0 Urinary tract infection, site not specified (principal); R11.2 Nausea with vomiting, unspecified; E87.6 Hypokalemia; Z79.899 Other long term (current) drug therapy; Z28.310 Unvaccinated for COVID-19; Z72.0 Tobacco use
CPT/HCPCS: 36000; 36415; 74176; 80053; 81001; 82150; 83690; 84484; 85025; 93005; 96374; 99284; J0696; A9270-GY

== ENCOUNTER 2023-07-28 06:00 | Emergency (ER) | payer OTHER ==
[2023-07-28 06:23] VITALS: TEMP 99.7
[2023-07-28] MEDS ORDERED: Sodium Chloride 0.9% 1000 ML 1,000 ML ONE (06:27)
[2023-07-28] MEDS ORDERED: Reglan 10 MG/2 ML ONE (06:27)
[2023-07-28] MEDS ORDERED: Reglan 10 MG/2 ML IV ONE (06:28)
[2023-07-28] MEDS ORDERED: Sodium Chloride 0.9% 1000 ML 1,000 ML IV STA (06:28)
[2023-07-28 06:41] LABS: BASOPHIL % 0.4 % (0.0-0.4); Basophil (Absolute #) 0.03 x10^3/uL (0-0.4); Eosinophil % 1.7 % (0.00-5.0); Eosinophil (Absolute #) 0.13 x10^3/uL (0-0.5); Hematocrit 43.7 % (35-47); Hemoglobin 14.4 g/dL (12.0-16.0); IMMATURE GRAN # 0.02 x10^3u/L (0.00-0.03); IMMATURE GRAN % 0.3 % (0.00-0.4); Lymphocyte (Absolute #) 1.99 x10^3/uL (1.0-4.6); Lymphocytes % 25.4 % (24.0-44.0); Mean Cell Volume 100.5 fL (78-100); Mean Corpuscular Hemoglobin 33.1 pg (26-32); Mean Platelet Volume 10.5 fL (7.5-11.0); Monocyte (Absolute #) 0.45 x10^3/uL (0.0-1.3); Monocytes % 5.8 % (0.0-12.0); Neutrophil % 66.4 % (36.0-66.0); Platelet Count 235 x10^3/uL (150-450); Red Blood Count 4.35 x10^6/uL (4.1-5.4); Red Cell Distribution Width 11.8 % (11.5-14.0); White Blood Count 7.8 x10^3/uL (4.0-10.5)
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
[2023-07-28 06:48] LABS: Appearance Cloudy (Clear); Bacteria Few /HPF (None Seen); Bilirubin Negative (Negative); Blood Trace (Negative); Epithelial Cells Many /HPF (None Seen); Glucose, Urine Negative (Negative); Hyaline Casts NONE SEEN /LPF (0-2); Ketones Trace (Negative); Leukocyte Esterase Moderate (Negative); Nitrite Negative (Negative); Protein,Urine Dip Trace (Negative); Specific Gravity 1.025 (1.005-1.030)
[2023-07-28 06:50] LABS: ADD URINE CULTURE? YES (NO)
[2023-07-28 06:55] LABS: ALBUMIN 4.1 g/dL (3.5-5.0); ALKALINE PHOSPHATASE 73 U/L (38-126); ANION GAP 11.1 MEQ/L (5-15); BLOOD UREA NITROGEN 13 mg/dL (7-17); CHLORIDE 107 mmol/L (98-107); Calcium 9.6 mg/dL (8.4-10.2); Carbon Dioxide 24 mmol/L (22-30); Creatinine 1 0.73 mg/dL (0.52-1.04); EST GLOMERULAR FILTRATION RATE 107.2 ML/MIN; ETHYL ALCOHOL < 10 mg/dL (0-10); Glucose 104 mg/dL (74-106); LIPASE 77 U/L (23-300); Potassium 3.7 mmol/L (3.5-5.1); SGOT/AST 20 U/L (14-36); SGPT/ALT 12 U/L (0-35); SODIUM 139 mmol/L (137-145); Total Protein 6.4 g/dL (6.3-8.2)
[2023-07-28] MEDS ORDERED: ROCEPHIN 1 Gm-D5w 50 ml Bag** 1 G/50 ML IVPB IV STA (06:56)
[2023-07-28 07:02] LABS: Amphetamine,Urine NEGATIVE (NEGATIVE); Barbiturate,Urine NEGATIVE (NEGATIVE); Benzodiazepine,Urine NEGATIVE (NEGATIVE); Cocaine,Urine NEGATIVE (NEGATIVE); Methadone,Urine NEGATIVE (NEGATIVE); Opiate,Urine NEGATIVE (NEGATIVE); PCP,Urine NEGATIVE (NEGATIVE); THC,Urine NEGATIVE (NEGATIVE)
[2023-07-28] MEDS ORDERED: ROCEPHIN 1 Gm-D5w 50 ml Bag** 1 G/50 ML IVPB IV ONE (07:03)
[2023-07-28 07:10] VITALS: BP 106/77; PULSE 56; RESP 18; O2SAT 97
== END 2023-07-28 07:51 | disposition home or self-care (01) ==
LOC: ED 06:00
DX: N39.0 Urinary tract infection, site not specified (principal); R11.2 Nausea with vomiting, unspecified; Z79.899 Other long term (current) drug therapy; Z28.310 Unvaccinated for COVID-19; Z72.0 Tobacco use
CPT/HCPCS: 36000; 36415; 80053; 80307; 81001; 82077; 83690; 84484; 85025; 87086; 96365; 96374; 99284; J0696

== ENCOUNTER 2023-08-08 00:37 | Emergency (ER) | payer OTHER ==
[2023-08-08 01:35] VITALS: TEMP 98.8
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
[2023-08-08 02:17] LABS: Amphetamine,Urine NEGATIVE (NEGATIVE); Barbiturate,Urine NEGATIVE (NEGATIVE); Benzodiazepine,Urine NEGATIVE (NEGATIVE); Cocaine,Urine NEGATIVE (NEGATIVE); Methadone,Urine NEGATIVE (NEGATIVE); Opiate,Urine NEGATIVE (NEGATIVE); PCP,Urine NEGATIVE (NEGATIVE); THC,Urine NEGATIVE (NEGATIVE)
[2023-08-08 02:19] LABS: Appearance Cloudy (Clear); Bacteria Rare /HPF (None Seen); Bilirubin Negative (Negative); Blood Negative (Negative); Epithelial Cells Many /HPF (None Seen); Glucose, Urine Negative (Negative); Hyaline Casts NONE SEEN /LPF (0-2); Ketones Negative (Negative); Leukocyte Esterase Small (Negative); Nitrite Negative (Negative); Ph 6.5 (4.6-8.0); Protein,Urine Dip Negative (Negative); RBC 0-2 /HPF (0-5); Urobilinogen 0.2 mg/dL (0.2)
[2023-08-08 02:22] LABS: Absolute Neutrophil Ct (ANC) 5.46 x10^3/uL (1.4-6.9); BASOPHIL % 0.5 % (0.0-0.4); Basophil (Absolute #) 0.04 x10^3/uL (0-0.4); Eosinophil % 1.5 % (0.00-5.0); Eosinophil (Absolute #) 0.13 x10^3/uL (0-0.5); Hematocrit 43.7 % (35-47); Hemoglobin 14.6 g/dL (12.0-16.0); IMMATURE GRAN # 0.01 x10^3u/L (0.00-0.03); IMMATURE GRAN % 0.1 % (0.00-0.4); Lymphocyte (Absolute #) 2.56 x10^3/uL (1.0-4.6); Lymphocytes % 29.5 % (24.0-44.0); Mean Cell Volume 102.6 fL (78-100); Mean Corpuscular Hemoglobin 34.3 pg (26-32); Mean Corpuscular Hgb Concent. 33.4 g/dL (32-36); Mean Platelet Volume 10.6 fL (7.5-11.0); Monocyte (Absolute #) 0.47 x10^3/uL (0.0-1.3); Monocytes % 5.4 % (0.0-12.0); Platelet Count 238 x10^3/uL (150-450); Red Blood Count 4.26 x10^6/uL (4.1-5.4); Red Cell Distribution Width 11.8 % (11.5-14.0); White Blood Count 8.7 x10^3/uL (4.0-10.5)
[2023-08-08 02:23] LABS: ADD URINE CULTURE? NO (NO)
[2023-08-08 02:35] LABS: ACETAMINOPHEN < 10 ug/ml (10-30); ALBUMIN 4.3 g/dL (3.5-5.0); ALKALINE PHOSPHATASE 71 U/L (38-126); ANION GAP 9.9 MEQ/L (5-15); BLOOD UREA NITROGEN 7 mg/dL (7-17); CHLORIDE 105 mmol/L (98-107); Calcium 9.6 mg/dL (8.4-10.2); Carbon Dioxide 27 mmol/L (22-30); EST GLOMERULAR FILTRATION RATE 112.8 ML/MIN; ETHYL ALCOHOL < 10 mg/dL (0-10); Glucose 107 mg/dL (74-106); Potassium 3.3 mmol/L (3.5-5.1); SALICYLATE < 1.0 mg/dL (2-20); SGOT/AST 20 U/L (14-36); SGPT/ALT 13 U/L (0-35); SODIUM 139 mmol/L (137-145); Total Protein 6.8 g/dL (6.3-8.2)
[2023-08-08 02:58] LABS: INFLUENZA A NEGATIVE (NEGATIVE); INFLUENZA B NEGATIVE (NEGATIVE); RESPIRATORY SYNCTIAL VIRUS NEGATIVE (NEGATIVE); SARS-CoV-2 Xpert Express NEGATIVE (NEGATIVE)
[2023-08-08 04:14] VITALS: RESP 17
[2023-08-08 05:12] VITALS: BP 129/91; PULSE 54
[2023-08-08] MEDS ORDERED: Klor Con ONE (06:18)
[2023-08-08] MEDS: Klor Con PO ONE (06:19)
[2023-08-08 06:23] VITALS: O2SAT 97
[2023-08-08] MEDS ORDERED: Ativan 1 MG ONE (06:26)
[2023-08-08] MEDS: Ativan 1 MG PO ONE (06:27)
== END 2023-08-08 06:45 | disposition home or self-care (01) ==
LOC: ED 00:37
DX: E87.6 Hypokalemia (principal); F43.10 Post-traumatic stress disorder, unspecified; N39.0 Urinary tract infection, site not specified; G47.00 Insomnia, unspecified; Z79.899 Other long term (current) drug therapy; Z28.310 Unvaccinated for COVID-19; Z72.0 Tobacco use
CPT/HCPCS: 0241U; 36415; 80053; 80143; 80179; 80307; 81001; 82077; 84439; 84443; 85025; 90791; 93005; 93041; 99284; Q3014; A9270-GY

== ENCOUNTER 2024-01-10 22:47 | Emergency (ER) | payer OTHER ==
[2024-01-10 22:54] VITALS: TEMP 97.9
[2024-01-10] MEDS ORDERED: TORAdol 30 mg Injection ONE (23:03)
[2024-01-10] MEDS ORDERED: Sodium Chloride 0.9% 1000 ML 1,000 ML ONE (23:03)
[2024-01-10] MEDS ORDERED: Zofran 4 MG/2 ML VIAL ONE (23:13)
[2024-01-10] MEDS: TORAdol 30 mg Injection IV ONE (23:14)
[2024-01-10] MEDS: Sodium Chloride 0.9% 1000 ML 1,000 ML IV STA (23:14)
[2024-01-10] MEDS: Zofran 4 MG/2 ML VIAL IV ONE (23:14)
[2024-01-10 23:31] LABS: Absolute Neutrophil Ct (ANC) 5.28 x10^3/uL (1.56-6.13); BASOPHIL % 0.6 % (0.1-1.2); Basophil (Absolute #) 0.05 x10^3/uL (0.01-0.08); Eosinophil % 2.6 % (0.7-5.8); Eosinophil (Absolute #) 0.23 x10^3/uL (0.04-0.36); Hematocrit 38.8 % (34.1-44.9); Hemoglobin 13.2 g/dL (11.2-15.7); IMMATURE GRAN # 0.02 x10^3u/L (0.001-0.031); IMMATURE GRAN % 0.2 % (0.001-0.429); Lymphocyte (Absolute #) 2.81 x10^3/uL (1.18-3.74); Lymphocytes % 31.7 % (19.3-51.7); Mean Cell Volume 99.7 fL (79.4-94.8); Mean Corpuscular Hemoglobin 33.9 pg (25.6-32.2); Mean Platelet Volume 10.1 fL (9.4-12.3); Monocyte (Absolute #) 0.47 x10^3/uL (0.24-0.86); Monocytes % 5.3 % (4.7-12.5); Neutrophil % 59.6 % (34.0-71.1); Platelet Count 226 x10^3/uL (182-369); Red Blood Count 3.89 x10^6/uL (3.93-5.22); White Blood Count 8.9 x10^3/uL (3.98-10.04)
[2024-01-10 23:33] LABS: HCG URINE TEST NEGATIVE (NEGATIVE)
[2024-01-10 23:36] LABS: Appearance Clear (Clear); Bacteria Rare /HPF (None Seen); Bilirubin Negative (Negative); Blood Negative (Negative); Epithelial Cells Few /HPF (None Seen); Glucose, Urine Negative (Negative); Hyaline Casts NONE SEEN /LPF (0-2); Ketones Negative (Negative); Leukocyte Esterase Negative (Negative); Nitrite Negative (Negative); Protein,Urine Dip Trace (Negative); RBC 0-2 /HPF (0-5); Specific Gravity >=1.030 (1.005-1.030)
[2024-01-10 23:38] LABS: ADD URINE CULTURE? NO (NO)
[2024-01-10 23:44] LABS: ANION GAP 10.6 MEQ/L (5-15); BILIRUBIN,TOTAL 0.4 mg/dL (0.2-1.3); Calcium 9.1 mg/dL (8.4-10.2); Creatinine 1 0.95 mg/dL (0.52-1.04); EST GLOMERULAR FILTRATION RATE 78.2 ML/MIN; Total Protein 6.3 g/dL (6.3-8.2)
--- NOTE | 2024-01-11 00:27 | XRAY ---
CLINICAL HISTORY: pain COMPARISON: none TECHNIQUE: Contiguous axial images were obtained from the level of the diaphragm to the pubic symphysis without intravenous or oral contrast. Coronal and sagittal reconstructions were likewise performed and indicated to increase the sensitivity for detecting clinically relevant pathology. CT scan was performed according to ALARA (as low as reasonable achievable) FINDINGS: The visualized lung bases are clear. Evaluation of the abdominal and pelvic visceral organs is limited without intravenous contrast. The unenhanced liver, spleen, pancreas, and adrenal glands are grossly unremarkable. The gallbladder is surgically removed. The kidneys are normal in size and attenuation without obvious calcification. There is no hydronephrosis or perinephric stranding. The ureters are normal in caliber. No adenopathy or fluid collections are seen. No evidence of focal or diffuse bowel wall thickening or evidence of bowel obstruction is seen. The appendix is visualized in the right lower quadrant and appears within normal limits. The aorta is normal in caliber. The urinary bladder is normal in contour. Pelvic viscera are grossly unremarkable. No aggressive appearing osseous lesions are identified. Diffuse patchy atherosclerotic calcification is noted involving the aorto-iliac arteries. IMPRESSION: 1. Unremarkable study for acute abdomen. Electronically Signed by: Roberto Diego MD. (01/11/2024 00:23:53 EDT)
--- NOTE | 2024-01-11 00:50 | ERPHSYRPT ---
- History of Present Illness Time Seen by Provider: 01/10/24 22:55 Historian: patient Exam Limitations: no limitations Patient Subjective Stated Complaint: RLQ pain Triage Nursing Assessment: pt brought back to ER via wheelchair. Pt c/o RLQ/flank pain x3 days but the pain got increasingly worse tonight. Abd soft with active bs x4 quad, tender to RLQ on palpation. Pt states, "I have some blood in my urine". LBM today. Physician History: 38-year-old female presents to our ED for evaluation of progressively worsening right lower quadrant pain. Pain described as an ache that is localized to her right lower quadrant. Pain worse with palpation pain improved with rest. Patient advises that she observed blood in her urine. No trauma no fever. No vaginal discharge. Patient denies history of the same. She voices no other complaints or concerns at this time. Timing/Duration: day(s) (3 days) Activities at Onset: none Quality: aching Abdominal Pain Onset Location: RLQ Pain Radiation: no radiation Severity of Pain-Max: moderate Severity of Pain-Current: mild Modifying Factors: Improves With: nothing Associated Symptoms: denies symptoms Previous symptoms: same symptoms as today Allergies/Adverse Reactions: erythromycin base Allergy (Intermediate, Verified 01/10/24 23:03) Rash shellfish derived Allergy (Intermediate, Verified 01/10/24 23:03) Rash Home Medications: dilTIAZem HCL [Cardizem] 60 mg PO DAILY 07/15/23 [History] Trazodone HCl 100 mg PO HS 07/28/23 [History] Buspirone HCl 10 mg PO BID 08/08/23 [History] Fluoxetine HCl [Prozac] 40 mg PO DAILY 08/08/23 [History] Prazosin HCl 1 mg PO HS 01/10/24 [History] Hx Tetanus, Diphtheria Vaccination/Date Given: No Hx Influenza Vaccination/Date Given: No Hx Pneumococcal Vaccination/Date Given: No Travel Risk - International Travel Have you traveled outside of the country in past 3 weeks: No If Yes, where;: N - Emerging Infectious Disease Are you exhibiting symptoms associated with any current EIDs: No - Review of Systems Constitutional: No Symptoms, No Fever, No Chills Eyes: No Symptoms Ears, Nose, & Throat: No Symptoms Respiratory: No Symptoms, No Cough, No Dyspnea Cardiac: No Symptoms, No Chest Pain, No Edema, No Syncope Abdominal/Gastrointestinal: No Symptoms, No Abdominal Pain, No Nausea, No Vomiting, No Diarrhea Genitourinary Symptoms: No Symptoms, No Dysuria Musculoskeletal: No Symptoms, No Back Pain, No Neck Pain Skin: No Symptoms, No Rash Neurological: No Symptoms, No Dizziness, No Focal Weakness, No Sensory Changes Psychological: No Symptoms Endocrine: No Symptoms Hematologic/Lymphatic: No Symptoms Immunological/Allergic: No Symptoms All Other Systems: Reviewed and Negative - Past Medical History Pertinent Past Medical History: Yes Neurological History: TIA, Other ENT History: No Pertinent History Cardiac History: Other Respiratory History: No Pertinent History Endocrine Medical History: No Pertinent History Musculoskeletal History: Degenerative Disk Disease, Fractures GI Medical History: GERD, Gallbladder Disease, Ulcer History: No Pertinent History Psycho-Social History: Anxiety, Depression Female Reproductive Disorders: Abnormal Uterine Bleeding Other Medical History: TBI, PTSD, ESOPHAGEAL AND HEART SPASMS. HX OF FRACTURES IN RIGHT SHOULDER "NEVER HEALED CORRECTLY WITH NERVE DAMAGE" - NO SURGERY. ARTHROSCOPY X 2 LEFT KNEE DUE TO MENISCAL ISSUES WITH MOST RECENT 1 YEAR AGO. torn rotator cuff and lt bicep - Past Surgical History Past Surgical History: Yes Neuro Surgical History: No Pertinent History Cardiac: No Pertinent History Respiratory: No Pertinent History Gastrointestinal: Cholecystectomy Genitourinary: No Pertinent History Musculoskeletal: Orthopedic Surgery Female Surgical History: Dilation & Curettage, Tubal Ligation, Other Other Surgical History: left knee meniscus repair,left wrist cyst,Lap emily, colonoscopy and EGD, ablation, breast biopsy. right ovary removed Significant Family History: no pertinent family hx - Female History Hx Now: No - Social History Smoking Status: Current every day smoker How long have you smoked: 20 yrs Exposure to second hand smoke: Yes Drug Use: none Patient Lives Alone: No - Social Determinants of Health Will the patient participate in the screening: Yes Do you worry about a steady place to live?: No Do you have any problems with any of the following?: No known problems In the past 12 months,have you had to go without utilities?: No Transportation Issues: No Has anyone in your support network made you feel unsafe?: No Have you or anyone in your house had to go without enough: No - Nursing Vital Signs Nursing Vital Signs: Initial Vital Signs Temperature 97.9 F 01/10/24 22:53 Pulse Rate 77 01/10/24 22:53 Respiratory Rate 18 01/10/24 22:53 Blood Pressure 154/93 01/10/24 22:53 O2 Sat by Pulse Oximetry 98 01/10/24 22:53 Pain Scale Pain Intensity 3 - Physical Exam General Appearance: no apparent distress, alert Eye Exam: PERRL/EOMI, eyes nml inspection Ears, Nose, Throat Exam: normal ENT inspection, pharynx normal, moist mucous membranes Neck Exam: normal inspection, non-tender, supple, full range of motion Respiratory Exam: normal breath sounds, lungs clear, airway intact, No respiratory distress Cardiovascular Exam: regular rate/rhythm, normal heart sounds Gastrointestinal/Abdomen Exam: soft, tenderness (Right lower quadrant tenderness to palpation), No mass Back Exam: normal inspection, normal range of motion, No CVA tenderness, No vertebral tenderness Extremity Exam: normal inspection, normal range of motion, pelvis stable Neurologic Exam: alert, 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, cooperative, normal mood/affect, nml cerebellar function, sensation nml, No motor deficits Skin Exam: normal color, warm, dry Lymphatic Exam: No adenopathy SpO2 Interpretation: normal SpO2: 94 O2 Delivery: Room Air - Course Nursing assessment & vital signs reviewed: Yes - CT Exams Abdomen/Pelvis CT Interpretation: Tele-radiologist Report (No acute abdominal findings) - Radiology Ultrasound Exam Pelvis Ultrasound: tele radiology report (Ultrasound negative for torsion) Ordered Tests: Active Orders 24 hr Category Date Time Status IV Insertion STAT Care 01/10/24 22:59 Active ABDOMEN AND PELVIS W/0 CONTRAS [CT] Stat Exams 01/10/24 22:59 Completed PELVIC [US] Stat Exams 01/11/24 01:03 Taken CBC W DIFF Stat Lab 01/10/24 23:25 Completed CMP Stat Lab 01/10/24 23:25 Completed HCG QUALITATIVE, URINE Stat Lab 01/10/24 23:14 Completed UA W/RFX UR CULTURE Stat Lab 01/10/24 23:14 Completed Medication Summary Discontinued Medications Generic Name Dose Route Start Last Admin Trade Name Freq PRN Reason Stop Dose Admin Sodium Chloride 1,000 mls @ 999 mls/hr 01/10/24 22:59 01/10/24 23:14 Sodium Chloride 0.9% 1000 Ml IV 01/10/24 23:59 999 mls/hr .Q1H1M STA Administration Sodium Chloride Confirm 01/10/24 23:03 Sodium Chloride 0.9% 1000 Ml Administered 01/10/24 23:04 Dose 1,000 mls @ ud .ROUTE .STK-MED ONE Ketorolac Tromethamine 30 mg 01/10/24 22:59 01/10/24 23:14 Ketorolac Tromethamine 30 Mg/Ml Inj IV 01/10/24 23:00 30 mg STAT ONE Administration Ketorolac Tromethamine Confirm 01/10/24 23:03 Ketorolac Tromethamine 30 Mg/Ml Inj Administered 01/10/24 23:04 Dose 30 mg .ROUTE .STK-MED ONE Ondansetron HCl 4 mg 01/10/24 23:12 01/10/24 23:14 Ondansetron Hcl 4 Mg/2 Ml Vial IV 01/10/24 23:13 4 mg STAT ONE Administration Ondansetron HCl Confirm 01/10/24 23:13 Ondansetron Hcl 4 Mg/2 Ml Vial Administered 01/10/24 23:14 Dose 4 mg .ROUTE .STK-MED ONE Lab/Rad Data: Laboratory Result Diagrams 01/10/24 23:25 01/10/24 23:25 Laboratory Results 01/10/24 01/10/24 01/10/24 Range/Units 23:25 23:25 23:14 WBC 8.9 (3.98-10.04) x10^3/uL RBC 3.89 L (3.93-5.22) x10^6/uL Hgb 13.2 (11.2-15.7) g/dL Hct 38.8 (34.1-44.9) % MCV 99.7 H (79.4-94.8) fL MCH 33.9 H (25.6-32.2) pg MCHC 34.0 (32.2-35.5) g/dL RDW 12.0 (11.7-14.4) % Plt Count 226 (182-369) x10^3/uL MPV 10.1 (9.4-12.3) fL Gran % 59.6 (34.0-71.1) % Immature Gran % (Auto) 0.2 (0.001-0.429) % Nucleat RBC Rel Count 0.0 (0.00-0.2) % Eos # (Auto) 0.23 (0.04-0.36) x10^3/uL Immature Gran # (Auto) 0.02 (0.001-0.031) x10^3u/L Absolute Lymphs (auto) 2.81 (1.18-3.74) x10^3/uL Absolute Monos (auto) 0.47 (0.24-0.86) x10^3/uL Absolute Nucleated RBC 0.00 (0.00-0.012) x10^3u/L Lymphocytes % 31.7 (19.3-51.7) % Monocytes % 5.3 (4.7-12.5) % Eosinophils % 2.6 (0.7-5.8) % Basophils % 0.6 (0.1-1.2) % Absolute Granulocytes 5.28 (1.56-6.13) x10^3/uL Basophils # 0.05 (0.01-0.08) x10^3/uL Sodium 140 (135-145) mmol/L Potassium 4.0 (3.5-5.1) mmol/L Chloride 108 H (98-107) mmol/L Carbon Dioxide 25 (22-30) mmol/L Anion Gap 10.6 (5-15) MEQ/L BUN 22 H (7-17) mg/dL Creatinine 0.95 (0.52-1.04) mg/dL Estimated GFR 78.2 ML/MIN Glucose 98 (74-106) mg/dL Calcium 9.1 (8.4-10.2) mg/dL Total Bilirubin 0.40 (0.2-1.3) mg/dL AST 22 (14-36) U/L ALT 14 (0-35) U/L Alkaline Phosphatase 56 (38-126) U/L Serum Total Protein 6.3 (6.3-8.2) g/dL Albumin 4.0 (3.5-5.0) g/dL Urine Color (Yellow) Urine Appearance (Clear) Urine pH (4.6-8.0) Ur Specific [place] (1.005-1.030) Urine Protein (Negative) Urine Glucose (UA) (Negative) mg/dL Urine Ketones (Negative) Urine Blood (Negative) Urine Nitrite (Negative) Urine Bilirubin (Negative) Urine Urobilinogen (0.2) mg/dL Ur Leukocyte Esterase (Negative) U Hyaline Cast (Auto) (0-2) /LPF Urine Microscopic RBC (0-5) /HPF Urine Microscopic WBC (0-5) /HPF Ur Epithelial Cells (None Seen) /HPF Urine Bacteria (None Seen) /HPF Urine Culture Reflexed (NO) Urine HCG, Qual NEGATIVE (NEGATIVE) 01/10/24 Range/Units 23:14 WBC (3.98-10.04) x10^3/uL RBC (3.93-5.22) x10^6/uL Hgb (11.2-15.7) g/dL Hct (34.1-44.9) % MCV (79.4-94.8) fL MCH (25.6-32.2) pg MCHC (32.2-35.5) g/dL RDW (11.7-14.4) % Plt Count (182-369) x10^3/uL MPV (9.4-12.3) fL Gran % (34.0-71.1) % Immature Gran % (Auto) (0.001-0.429) % Nucleat RBC Rel Count (0.00-0.2) % Eos # (Auto) (0.04-0.36) x10^3/uL Immature Gran # (Auto) (0.001-0.031) x10^3u/L Absolute Lymphs (auto) (1.18-3.74) x10^3/uL Absolute Monos (auto) (0.24-0.86) x10^3/uL Absolute Nucleated RBC (0.00-0.012) x10^3u/L Lymphocytes % (19.3-51.7) % Monocytes % (4.7-12.5) % Eosinophils % (0.7-5.8) % Basophils % (0.1-1.2) % Absolute Granulocytes (1.56-6.13) x10^3/uL Basophils # (0.01-0.08) x10^3/uL Sodium (135-145) mmol/L Potassium (3.5-5.1) mmol/L Chloride (98-107) mmol/L Carbon Dioxide (22-30) mmol/L Anion Gap (5-15) MEQ/L BUN (7-17) mg/dL Creatinine (0.52-1.04) mg/dL Estimated GFR ML/MIN Glucose (74-106) mg/dL Calcium (8.4-10.2) mg/dL Total Bilirubin (0.2-1.3) mg/dL AST (14-36) U/L ALT (0-35) U/L Alkaline Phosphatase (38-126) U/L Serum Total Protein (6.3-8.2) g/dL Albumin (3.5-5.0) g/dL Urine Color Yellow (Yellow) Urine Appearance Clear (Clear) Urine pH 6.0 (4.6-8.0) Ur Specific [place] >=1.030 A (1.005-1.030) Urine Protein Trace A (Negative) Urine Glucose (UA) Negative (Negative) mg/dL Urine Ketones Negative (Negative) Urine Blood Negative (Negative) Urine Nitrite Negative (Negative) Urine Bilirubin Negative (Negative) Urine Urobilinogen 1.0 A (0.2) mg/dL Ur Leukocyte Esterase Negative (Negative) U Hyaline Cast (Auto) NONE SEEN (0-2) /LPF Urine Microscopic RBC 0-2 (0-5) /HPF Urine Microscopic WBC 3-5 (0-5) /HPF Ur Epithelial Cells Few (None Seen) /HPF Urine Bacteria Rare A (None Seen) /HPF Urine Culture Reflexed NO (NO) Urine HCG, Qual (NEGATIVE) - Progress Progress: improved Progress Note: 38-year-old female presents emergency department for evaluation of right lower quadrant pain. Laboratory workup essentially nonremarkable. Urinalysis negative for UTI. CT abdomen pelvis does not explain patient's symptomology. No acute findings observed. Ultrasound of pelvis negative for torsion. Patient reassessed she is resting comfortably. No active pain will discharge home. Patient agrees to follow-up with her primary care doctor within 48 hours for reevaluation. Portions of this note were created with voice recognition technology. There may be grammatical, spelling, punctuation or sound alike errors Complexity problem addressed is moderate acute complicated. No critical care time. Complexity of data reviewed and analyzed is moderate. Test ordered test reviewed results analyzed and correlated clinically with history and physical exam. Risk of complication and or risk of morbidity/mortality patient management is low. Vital stable. Time spent to discharge patient is approximately 15 minutes. Plan of care established for shared decision making. No social determinants of health present impede follow-up. Portions of this note were created with voice recognition technology. There may be grammatical, spelling, punctuation or sound alike errors 01/11/24 02:18 Counseled pt/family regarding: lab results, diagnosis, need for follow-up, rad results - Departure Departure Disposition: Home Clinical Impression: Abdominal pain, Dehydration Condition: Stable Critical Care Time: No Referrals: WAQAS BUCK, [employer] [Primary Care Provider] - Follow up/PCP as directed Additional Instructions: Discharge/Care Plan ARAMIS COOL was seen on 01/11/24 in the Emergency Room. The patient was counseled regarding Diagnosis,Lab results, Imaging studies, need for follow up and when to return to the Emergency Room. Prescriptions given: Discharge Note I have spoken with the patient and/or caregivers. I have explained the patient's condition, diagnosis and treatment plan based on the information available to me at this time. I have answered the patient's and/or caregiver's questions and addressed any concerns. The patient and/or caregivers have as good understanding of the patient's diagnosis, condition and treatment plan as can be expected at this point. The vital signs have been stable. The patient's condition is stable and appropriate for discharge from the emergency department. The patient will pursue further outpatient evaluation with the primary care physician or other designated or consulting physician as outlined in the disch theodorae instructions. The patient and/or caregivers are agreeable to this plan of care and follow-up instructions have been explained in detail. The patient and/or caregivers have received these instruction. The patient/and or caregivers are aware that any significant change in condition or worsening of symptoms should prompt an immediate return to this or the closest emergency department or call 911.
[2024-01-11 01:11] VITALS: RESP 16
[2024-01-11 02:32] VITALS: BP 101/65; PULSE 48; O2SAT 99
--- NOTE | 2024-01-11 08:40 | XRAY ---
Indication: Right lower quadrant pain. Torsion. Right oophorectomy. Two-dimensional transabdominal pelvic sonogram performed. Comparison: December 22, 2018 Urinary bladder not adequately distended producing suboptimal acoustic window. Uterus anteverted measuring 7.3 x 3.9 x 5.3 cm. No focal solid/cystic uterine mass. Endometrial stripe not visualized. No focal endometrial cavity mass or fluid collection. Left ovary measures 1.6 x 1.6 x 1.3 cm and demonstrates normal color perfusion. Right ovary is now surgically absent. No suspicious adnexal mass or free fluid. Impression: Right oophorectomy. Remaining transabdominal pelvic sonogram is negative. Comment: Preliminary report was given.
== END 2024-01-11 02:33 | disposition home or self-care (01) ==
LOC: ED 22:47
DX: R10.31 Right lower quadrant pain (principal); E86.0 Dehydration; Z79.899 Other long term (current) drug therapy; Z72.0 Tobacco use
CPT/HCPCS: 36000; 36415; 74176; 76856; 80053; 81001; 81025; 85025; 96374; 96375; 99284; J1885; J2405

== ENCOUNTER 2024-01-20 20:01 | Emergency (ER) | payer OTHER ==
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
[2024-01-20 20:23] VITALS: RESP 16; TEMP 97.6; O2SAT 98
[2024-01-20] MEDS ORDERED: Norflex 100 MG Tablet PO ONE (20:32)
[2024-01-20] MEDS ORDERED: DELTASONE 20 MG ONE (20:33)
[2024-01-20] MEDS ORDERED: PERCOCET TABLET 5/325MG ONE ×2 (20:33→21:32)
[2024-01-20] MEDS: Norflex 100 MG Tablet PO ONE (20:34)
[2024-01-20] MEDS: DELTASONE 20 MG PO ONE (20:34)
[2024-01-20] MEDS: PERCOCET TABLET 5/325MG PO STA ×2 (20:34→21:36)
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
[2024-01-20 21:42] VITALS: BP 107/73; PULSE 50
== END 2024-01-20 22:02 | disposition home or self-care (01) ==
LOC: ED 20:01
DX: M25.521 Pain in right elbow (principal); M79.631 Pain in right forearm; M25.551 Pain in right hip; Z79.891 Long term (current) use of opiate analgesic; Z79.899 Other long term (current) drug therapy; Z72.0 Tobacco use
CPT/HCPCS: 73080; 73090; 73502; 99283; A9270-GY

== ENCOUNTER 2024-01-30 23:26 | Emergency (ER) | payer OTHER ==
[2024-01-30 23:44] VITALS: TEMP 98
[2024-01-30] MEDS ORDERED: TORAdol 30 mg Injection ONE (23:56)
[2024-01-30] MEDS: TORAdol 30 mg Injection IM ONE (23:57)
--- NOTE | 2024-01-31 00:38 | ERPHSYRPT ---
- History of Present Illness Time Seen by Provider: 01/30/24 23:30 Source: patient Exam Limitations: no limitations Patient Subjective Stated Complaint: pt states she fell and hurt her rt hand Triage Nursing Assessment: pt alert and oriented, answers questions approp. pt ambulates into room with steady gait noted. respirations nonlabored. skin warm and dry. bruising noted to rt hand 4th and 5th digits. mild swelling noted. cap refill and radial pulse wnl. Physician History: 38-year-old right-handed dominant female presented in the ER after she tripped and fell, tried to stop herself and hit her right hand fourth and fifth metacarpophalangeal joint area against the floor. This happened prior to arrival. Complaining of moderate intensity sharp pain with palpation and movements. Better with being still. No numbness or tingling at the fingertips. Patient denies injury anywhere else. Allergies/Adverse Reactions: erythromycin base Allergy (Intermediate, Verified 01/30/24 23:44) Rash shellfish derived Allergy (Intermediate, Verified 01/30/24 23:44) Rash Home Medications: dilTIAZem HCL [Cardizem] 60 mg PO DAILY 07/15/23 [History] Trazodone HCl 100 mg PO HS 07/28/23 [History] Buspirone HCl 10 mg PO BID 08/08/23 [History] Fluoxetine HCl [Prozac] 40 mg PO DAILY 08/08/23 [History] Prazosin HCl 1 mg PO HS 01/10/24 [History] Loratadine 10 mg [Claritin 10 mg] 10 mg PO DAILY 01/20/24 [History] Omeprazole 40 mg PO DAILY 01/20/24 [History] Hx Tetanus, Diphtheria Vaccination/Date Given: No Hx Influenza Vaccination/Date Given: No Hx Pneumococcal Vaccination/Date Given: No Immunizations Up to Date: No Travel Risk - International Travel Have you traveled outside of the country in past 3 weeks: No - Emerging Infectious Disease Are you exhibiting symptoms associated with any current EIDs: No - Review of Systems Constitutional: No Symptoms Ears, Nose, & Throat: No Symptoms Respiratory: No Symptoms Cardiac: No Symptoms Abdominal/Gastrointestinal: No Symptoms Musculoskeletal: Fall, Injury, Joint Redness, Joint Pain, Joint Swelling Skin: No Symptoms Neurological: No Symptoms Endocrine: No Symptoms Hematologic/Lymphatic: No Symptoms - Past Medical History Pertinent Past Medical History: Yes Neurological History: TIA, Other ENT History: No Pertinent History Cardiac History: Other Respiratory History: No Pertinent History Endocrine Medical History: No Pertinent History Musculoskeletal History: Degenerative Disk Disease, Fractures GI Medical History: GERD, Gallbladder Disease, Ulcer History: No Pertinent History Psycho-Social History: Anxiety, Depression Female Reproductive Disorders: Abnormal Uterine Bleeding Other Medical History: TBI, PTSD, ESOPHAGEAL AND HEART SPASMS. HX OF FRACTURES IN RIGHT SHOULDER "NEVER HEALED CORRECTLY WITH NERVE DAMAGE" - NO SURGERY. ARTHROSCOPY X 2 LEFT KNEE DUE TO MENISCAL ISSUES WITH MOST RECENT 1 YEAR AGO. torn rotator cuff and lt bicep - Past Surgical History Past Surgical History: Yes Neuro Surgical History: No Pertinent History Cardiac: No Pertinent History Respiratory: No Pertinent History Gastrointestinal: Cholecystectomy Genitourinary: No Pertinent History Musculoskeletal: Orthopedic Surgery Female Surgical History: Dilation & Curettage, Tubal Ligation, Other Other Surgical History: left knee meniscus repair,left wrist cyst,Lap emily, colonoscopy and EGD, ablation, breast biopsy. right ovary removed Significant Family History: no pertinent family hx - Female History Hx Last Menstrual Period: ablation Hx Now: (unkn) - Social History Smoking Status: Current every day smoker How long have you smoked: 20 yrs Exposure to second hand smoke: Yes Drug Use: none Patient Lives Alone: No - Social Determinants of Health Will the patient participate in the screening: Declined to provide - Nursing Vital Signs Nursing Vital Signs: Initial Vital Signs Temperature 98.0 F 01/30/24 23:32 Pulse Rate 76 01/30/24 23:32 Respiratory Rate 18 01/30/24 23:32 Blood Pressure 129/81 01/30/24 23:32 O2 Sat by Pulse Oximetry 98 01/30/24 23:32 Pain Scale Pain Intensity 7 - Physical Exam General Appearance: no apparent distress Neck Exam: normal inspection Cardiovascular/Respiratory Exam: normal breath sounds, regular rate/rhythm Wrist Exam: normal inspection, non-tender, no evidence of injury, normal ROM Hand Exam: bone tenderness (Right hand fourth and fifth metacarpal phalangeal joint area with bruising around. Minimal tenderness proximal phalanx fourth and fifth digit. Distal neurovascular intact.) Neuro/Tendon Exam: normal sensation, normal motor functions, normal tendon functions Mental Status Exam: alert, 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, cooperative Skin Exam: normal color SpO2 Interpretation: normal SpO2: 98 O2 Delivery: Room Air Ordered Tests: Active Orders 24 hr Category Date Time Status HAND (MINIMUM 3 VIEWS) Stat Exams 01/30/24 23:45 Taken Medication Summary Discontinued Medications Generic Name Dose Route Start Last Admin Trade Name Rhea PRN Reason Stop Dose Admin Ketorolac Tromethamine 30 mg 01/30/24 23:45 01/30/24 23:57 Ketorolac Tromethamine 30 Mg/Ml Inj IM 01/30/24 23:46 30 mg STAT ONE Administration Ketorolac Tromethamine Confirm 01/30/24 23:56 Ketorolac Tromethamine 30 Mg/Ml Inj Administered 01/30/24 23:57 Dose 30 mg .ROUTE .STK-MED ONE - Progress Progress: improved, pain not gone completely Progress Note: 01/31/24 00:36 38-year-old [id number] female is evaluated in the ER for fall with injury to right fourth and fifth digit metacarpophalangeal joint area. Reproducible pain with palpation and movements. Intact range of motion. Distal neurovascular intact. X-rays are negative for fracture dislocation reviewed by me, official report is pending. I believe patient has contusion, placed in Lito wrap, recommended Tylenol/ibuprofen and outpatient follow-up with primary care/orthopedics. Discussed signs symptoms of worsening needing return to ER which she seems understanding. Counseled pt/family regarding: diagnosis, need for follow-up, rad results Medical Desision Making - Diagnostic Testing Diagnostic test were ordered, analyzed, and reviewed by me: Yes Radiological Interpretation: Interpreted by me, Reviewed by me - Risk of complications The pt has a mod risk of morbidity or mortality based on: Need for prescription drug management - Departure Departure Disposition: Home Clinical Impression: Hand contusion Condition: Stable Critical Care Time: No Referrals: WAQAS BUCK NP [Primary Care Provider] - Follow up with PCP 1 day Instructions: Hand Pain (DC) Additional Instructions: Intermittent ice application. Take Tylenol/ibuprofen as needed. Follow-up with primary care/orthopedics for reevaluation. Return to ER for any worsening. Prescriptions: Ibuprofen 600 mg PO Q6HPRN PRN 10 Days #20 tablet PRN Reason: Pain
[2024-01-31 01:16] VITALS: BP 101/64; PULSE 57; RESP 16; O2SAT 100
--- NOTE | 2024-01-31 08:53 | XRAY ---
Indication: Pain following fall. Comparison: None 3 view right hand demonstrates medial carpal punctate ossification either degenerative versus old injury. No other bony, articular, or soft tissue abnormalities.
== END 2024-01-31 01:22 | disposition home or self-care (01) ==
LOC: ED 23:26
DX: S60.221A Contusion of right hand, initial encounter (principal); W01.0XXA Fall on same level from slipping, tripping and stumbling without subsequent striking against object, initial encounter; Z79.899 Other long term (current) drug therapy; Z72.0 Tobacco use
CPT/HCPCS: 73130; 96372; 99283; J1885

== ENCOUNTER 2024-02-22 08:00 | Day surgery (SDC) | payer OTHER ==
[2024-02-22 08:26] VITALS: RESP 18
[2024-02-22 08:30] LABS: HCG URINE TEST NEGATIVE (NEGATIVE)
[2024-02-22] MEDS: Lactated Ringers 1,000 ML IV SCH (08:30)
[2024-02-22] MEDS: CEFAZOLIN 2 GM/100 ML NaCl 2 GM/100 ML IVPB IV SCH (08:31)
[2024-02-22 08:35] LABS: Mean Cell Volume 102.6 fL (79.4-94.8); Mean Corpuscular Hemoglobin 34.2 pg (25.6-32.2); Mean Corpuscular Hgb Concent. 33.3 g/dL (32.2-35.5); Mean Platelet Volume 10.3 fL (9.4-12.3); Platelet Count 187 x10^3/uL (182-369); Red Cell Distribution Width 12.1 % (11.7-14.4); White Blood Count 7.2 x10^3/uL (3.98-10.04)
[2024-02-22] MEDS: Decadron 4 MG PO ONE (08:38)
[2024-02-22] MEDS ORDERED: celeBREX 100 MG ONE (08:38)
[2024-02-22] MEDS: celeBREX 100 MG PO ONE (08:38)
[2024-02-22] MEDS: TYLENOL EXTRA STRENGTH 500 MG PO ONE (08:38)
[2024-02-22] MEDS: NEURONTIN PO ONE (08:39)
[2024-02-22] MEDS: Pepcid 20 MG VIAL IV ONE (09:08)
[2024-02-22] MEDS: Reglan 10 MG/2 ML IV ONE (09:08)
[2024-02-22] MEDS ORDERED: ROCURONIUM BROMIDE IV ONE (09:39)
[2024-02-22] MEDS: Versed 2 MG/2 ML Injection IV PRN (09:40)
[2024-02-22] MEDS ORDERED: Versed 2 MG/2 ML Injection ONE (09:40)
[2024-02-22] MEDS ORDERED: SUBLIMAZE 100 MCG/2 ML ONE ×2 (09:51→11:44)
[2024-02-22] MEDS ORDERED: DIPRIVAN 200 MG/20 ML IV ONE (09:51)
[2024-02-22] MEDS ORDERED: MARCAINE 0.25% PF/ EPI 1:200,000 ONE (09:54)
[2024-02-22] MEDS ORDERED: Xylocaine-Mpf 2% 5 Ml Vial ONE (10:11)
[2024-02-22] MEDS ORDERED: Lactated Ringers 1,000 ML IV ONE (10:24)
[2024-02-22] MEDS ORDERED: Ephedrine Sulfate 50 MG/ML ONE (10:27)
[2024-02-22] MEDS ORDERED: BRIDION 200MG/2ML IV ONE (10:56)
[2024-02-22] MEDS ORDERED: Zofran 4 MG/2 ML VIAL ONE (10:56)
[2024-02-22 12:47] VITALS: TEMP 97; O2SAT 96
[2024-02-22 13:02] VITALS: BP 124/68; PULSE 67
--- NOTE | 2024-02-23 12:28 | OP ---
SURGERY DATE/TIME: 02/22/2024 [id number] - [id number] PREOPERATIVE DIAGNOSIS: Right ulnar neuropathy. POSTOPERATIVE DIAGNOSIS: Right ulnar neuropathy. PROCEDURE: Right ulnar nerve transposition. SURGEON: Celio Parson MD. INDICATIONS: A 39-year-old right-hand dominant female, was seen in the office for evaluation of pain in the right arm and a popping sensation at the right elbow, numbness and tingling in the fourth and fifth fingers. She clinically had a subluxing ulnar nerve. It could be palpated and noted to sublux over the medial epicondyle when she hyperflexed her elbow. This was associated with numbness, tingling in the fingers of the right hand, as well as pain in the forearm. We, therefore, recommended ulnar nerve transposition to prevent further ongoing subluxation. Consent was obtained after a discussion of the procedure, risks, benefits, options. DESCRIPTION OF PROCEDURE AND FINDINGS: Patient was seen preoperatively, and operative limb was identified, confirmed, and initialed. She was given IV Antibiotics and taken to the operating room. She was placed under general anesthesia in supine position with an arm board on the right. The rehab manager injected 1% Xylocaine into the upper arm around the position of the tourniquet. We performed sterile prep and drape with DuraPrep. I then kati the incision line onto the skin and infiltrated this area with 10 mL of 0.25% Marcaine with epinephrine. Following that, we exsanguinated the arm with an Esmarch and inflated tourniquet to 250 mmHg. A longitudinal incision was made. It was deepened with a hemostat. We identified the nerve proximal to the medial epicondyle. We incised the fascia and then placed a vessel loop around the nerve. We then worked our way distally, releasing the fascia all the way down to the flexor carpi ulnaris. Once the nerve was completely mobilized, we developed a plane over the flexor muscle mass between the subcutaneous fatty tissue and the fascia itself. We placed a retractor behind the humerus and released the intermuscular septum. We then cut into the tendon of the flexor muscle mass. Intermuscular septae were released with scissors. Once the muscle was released, we transposed the nerve and made sure that there were no sharp edges or tight spots to impinge on the nerve. We then created 2 tongue-shaped flaps of fascia by incising from the volar fascia, and we folded these back of the nerves. We released the tourniquet, checked for bleeding, irrigated the wound. We cauterized several small bleeds taking care to use bipolar when near the nerve. We then transposed the nerve and used the flaps of fascia to keep the nerve in place, and these were sutured to the medial epicondylar tissue with #1 Vicryl. We then closed the wound with 2-0 Vicryl and soo. Sterile dressings were applied. The patient was taken to recovery room in stable condition.
== END 2024-02-22 13:03 | disposition home or self-care (01) ==
LOC: SDC 08:00
PROVIDERS: ATTEND Orthopaedic Surgery
DX: G56.21 Lesion of ulnar nerve, right upper limb (principal)
CPT/HCPCS: 81025; 85027; J0690; J2250; J2405; J2704; J3010; A9270-GY